=== PATIENT | female | born 1990 | race Caucasian/White ===

== ENCOUNTER 2016-08-04 09:39 | Emergency (ER) | payer OTHER ==
[~2016-08-04 09:39] MED LIST: /DULO30CA OR; BACL10TA2 OR; CYMB60CA3 PO; DEPO PROVERA IM; FLAG500T OR; FLUO20CA8 PO; GABA300C2 PO; GABA600T3 OR; IBUP600T PO; IBUPROFEN PO; LYRI150C OR; MOTR200T44 PO; NALOXONE PO; PENTAZOCINE; PENTAZOCINE PO; PERC5TAB8 PO; PERCOCET PO; PREG100CA OR; SOMA350T PO; TIZA4TAB OR; TRAM50TA2 OR; TRAZ50TA OR; TRAZADONE PO; VICO5TAB PO
[2016-08-04 10:24] LABS: MEAN CORPUSCULAR HEMOGLOBIN 30.7 pg (27.0-33.0); MEAN CORPUSCULAR HGB CONC 33.7 g/dl (32.0-36.5); MEAN CORPUSCULAR VOLUME 91.1 fl (80.0-96.0); RED CELL DISTRIBUTION WIDTH 13.3 % (11.5-14.5); WHITE BLOOD COUNT 8.9 K/mm3 (4.0-10.0)
[2016-08-04] MEDS ORDERED: ONDANSETRON 4 MG ORAL DISINTEGRATING TAB (S0181) As Ordered ONE (10:33)
[2016-08-04 10:44] LABS: AMPHETAMINES LEVEL URINE POSITIVE (NEGATIVE); BENZODIAZEPINES URINE NEGATIVE (NEGATIVE); COCAINE METABOLITE URINE NEGATIVE (NEGATIVE); CONTROL LINE INT CTR LINE PRESENT; METHADONE URINE NEGATIVE (NEGATIVE); OPIATES URINE POSITIVE (NEGATIVE); TRICYCLIC ANTIDEPRESS URINE NEGATIVE (NEGATIVE)
[2016-08-04 10:54] LABS: ALBUMIN 3.6 GM/DL (3.2-5.2); ALBUMIN/GLOBULIN RATIO 1.13 (1.00-1.93); ALKALINE PHOSPHATASE 144 U/L (45-117); ALT/SGPT 31 U/L (12-78); ANION GAP 9 MEQ/L (8-16); AST/SGOT 20 U/L (15-37); BILIRUBIN,DIRECT 0.2 MG/DL (0.0-0.2); BILIRUBIN,TOTAL 0.6 MG/DL (0.2-1.0); BLOOD UREA NITROGEN 13 MG/DL (7-18); CALCIUM LEVEL 9.2 MG/DL (8.5-10.1); CARBON DIOXIDE LEVEL 29 MEQ/L (21-32); CHLORIDE LEVEL 106 MEQ/L (98-107); GLOMERULAR FILTRATION RATE > 60.0 (>60); GLUCOSE, FASTING 85 MG/DL (70-105); POTASSIUM SERUM 4.1 MEQ/L (3.5-5.1); SODIUM LEVEL 144 MEQ/L (136-145); TOTAL PROTEIN 6.8 GM/DL (6.4-8.2)
--- NOTE | 2016-08-04 12:45 | EDDOCDS ---
Nurse's Notes [facility] Name: Ashwini Linda Age: 25 yrs Sex: Female : 1990 Arrival Date: 08/04/2016 Time: 09:39 Bed 30 Private MD: Adrián iRos G Diagnosis: Anxiety disorder, unspecified;Insomnia;Other psychoactive substance abuse-Substance Abuse ;Nausea;Other seizures-Pseudoseizures;Low back pain-Chronic Presentation: 08/04 09:42 Presenting complaint: EMS states: call was originally for anxiety., EMS states on their dsf arrival pt kept blacking out. after they would tap her she would come around. pt denies SI or HI. Fire dept gave oral glucose. Mental Health Triage Level: Not applicable. Suicide/Homicide risk assessment- the patient denies having any suicidal and/or homicidal ideations and does not present with any other emotional, behavioral or mental health complaints. Transition of care: patient was not received from another setting of care. 09:42 Acuity: TANMAY Level 4 dsf 09:42 Method Of Arrival: Walkin/Carried/Asstd dsf 09:42 Status: Patient is not a food service coordinator or dependent. dsf 12:44 Adult Sepsis Screening: The patient does not have new or worsening altered mentation. dsf Patient's respiratory rate is less than 22. Systolic blood pressure is greater than 100. Patient has a qSOFA score of 0- Negative Sepsis Screen. Triage Assessment: 09:52 General: Appears in no apparent distress, Behavior is appropriate for age. Pain: dsf Location: low back Pain currently is 6 out of 10 on a pain scale. HIV screening NA for this visit Offered previously. The patient is triaged at the bedside. See Assessment in Nurses Notes section of ED record. GI: Denies diarrhea, nausea, vomiting, pain. Derm: Skin is pink, warm & dry. 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 clonazepam 1 mg Oral tab 1 tab 3 times per day (Last dose: 08/04/2016 08:00) 2. Lyrica 200 mg Oral 3 times per day (Last dose: 08/04/2016 08:00) 3. multivitamin Oral tab twice a day (Last dose: 08/04/2016 08:00) 4. oxycodone 15 mg Oral tab 1 tab 5 X a day as needed (Last dose: 08/04/2016 08:00) 5. Paxil 20 mg Oral tab 1 tab once daily (Last dose: 08/03/2016 20:00) - PMHx: Anxiety; Chronic Back pain; perforated stomach ulcer; Asthma; - PSHx: Gastric Bypass; stomach surgery; right ankle surgery; Tonsillectomy; Gall Bladder Removal; - Social history: Smoking status: Patient uses tobacco products, current every day smoker. No barriers to communication noted, The patient speaks fluent British, Speaks appropriately for age. - Family history: Not pertinent. - : The pt / caregiver states he / she is not on anticoagulants. Home medication list is obtained from the patient. - Exposure Risk Screening:: None identified. Screenin:43 Screening information is obtained from the patient. Fall risk: No risks identified. dsf Assistance ADL's: requires no assistance with activities of daily living. Abuse/DV Screen: The patient / caregiver reports he/she is: not in a situation that causes fear, pain or injury. Nutritional screening: No deficits noted. Advance Directives: Currently, there is no health care proxy. home support is adequate. Assessment: 09:52 General: Appears in no apparent distress, Behavior is appropriate for age, cooperative. dsf Neurological: Level of Consciousness is awake, alert. Cardiovascular: Capillary refill < 3 seconds Heart tones S1 S2 present. Respiratory: Airway is patent Respiratory effort is even, unlabored, Respiratory pattern is regular, symmetrical, Breath sounds are clear bilaterally. GI: Abdomen is non- distended. Derm: Skin is pink, warm & dry. 10:52 General: Appears to be sleeping. Respiratory: Airway is patent Respiratory effort is dsf even, unlabored, Respiratory pattern is regular, symmetrical. Derm: Skin is pink, warm & dry. 11:52 General: Appears in no apparent distress, Behavior is appropriate for age, cooperative. dsf Neurological: Level of Consciousness is awake, alert, Oriented to person, place, time. Cardiovascular: Capillary refill < 3 seconds. Respiratory: Airway is patent Respiratory effort is even, unlabored, Respiratory pattern is regular, symmetrical. Derm: Skin is pink, warm & dry. 12:41 Adult Sepsis Screening: The patient does not have new or worsening altered mentation. dsf Patient's respiratory rate is less than 22. Systolic blood pressure is greater than 100. Patient has a qSOFA score of 0- Negative Sepsis Screen. General: Appears in no apparent distress, comfortable, Behavior is appropriate for age, cooperative. Neurological: Level of Consciousness is awake, alert. Cardiovascular: No deficits noted. Respiratory: No deficits noted. Derm: Skin is pink, warm & dry. 12:43 General: pt walking in room without difficulty . dsf Social Work Consult: 11:58 Social Work Note: Met with Patient at bedside for a social work consult. Patient stated mb10 she was brought into the ER after she "blacked out". Patient reported back pain and impacted teeth which were bothering her. Patient reported increased anxiety over the past 2 months stating, "I have too much on my mind right now". When asked what she meant, she indicated she was attempting to regain custody of her daughter after her mother was awarded custody when she missed a court appearance. Patient was not willing to elaborate further. Patient reported she has having difficulties sleeping at night but was unable to report how much sleep she was actually getting each night. Patient indicated pain and racing thoughts are what typically keep her awake. She stated her primary care provider was prescribing her psychiatric medications, which are Klonopin and Ambien, as she was not current established with an outpatient mental health provider. Patient denies SI/HI. Patient was able to contract for safety. Patient reported she has a boyfriend who is supportive. Patient was given a list of outpatient providers with her contact information. Patient's boyfriend will be accompanying her home. Status: The patient is not a food service coordinator or dependent. [facility] Behavioral Health: The patient is not an established patient of [facility] Behavior[facility]. Vital Signs: 09:42 BP 139 / 74; Pulse 100; Resp 20; Temp 96.6(O); Pulse Ox 100% on R/A; Weight 70.31 kg dsf (R); Height 6 ft. 1 in. (185.42 cm); Pain 6/10; 12:43 BP 146 / 60; Pulse 102; Resp 20; Temp 97.4; Pulse Ox 99% on R/A; Pain 4/10; dsf 09:42 Body Mass Index 20.45 (70.31 kg, 185.42 cm) f Vitals: 09:42 Log In Time N/A - ambulance arrival. dsf ED Course: 09:40 Patient visited by Faith Loo PCA. ar3 09:40 Patient moved to Waiting ar3 09:40 Patient moved to 30 ar3 09:41 Adrián Rios is Private Physician. ar3 09:46 Triage Initiated dsf 09:48 Maricruz Nelson PA-C is PHCP. ef1 09:48 Hannah Panchal MD is Attending Physician. ef1 09:48 Patient visited by Maricruz Nelson PA-C. ef1 10:21 Patient visited by Maricruz Nelson PA-C. ef1 10:21 Acetaminophen Level Sent. dsf 10:21 Basic Metabolic Profile Sent. dsf 10:21 Complete Blood Count Sent. dsf 10:21 Drug Eval Toxicology ED Only Sent. dsf 10:21 Ethyl Alcohol (ethanol) Sent. dsf 10:21 Liver Profile Sent. dsf 10:21 Salicylate Level Sent. dsf 10:21 Thyroid Stimulating Hormone Sent. dsf 10:48 [facility] [place] was scanned into [employer] and attached to record. jp5 10:57 Patient visited by Mariam Nguyen RN. dsf 11:34 Patient visited by Maricruz Nelson PA-C. ef1 12:27 Patient visited by Maricruz Nelson PA-C. ef1 12:29 Adrián Rios is Referral Physician. ef1 12:39 PSA Outpatient Referrals was scanned into [employer] and attached to record. mb10 12:43 The patient / caregiver is instructed regarding the plan of care and ED course. dsf 12:43 No IV's were initiated during this patient's visit. No procedures done that require dsf assistance. Administered Medications: 10:38 Drug: Ondansetron ODT 4 mg [ondansetron 4 mg disintegrating tablet (1 tabs)] Route: PO; dsf Order Results: Lab Order: Acetaminophen Level; SPEC'M 08/04/16 10:03 Test: ACETAMINOPHEN LEVEL; Value: < 2.0; Range: 10.0-30.0; Abnormal: Below low normal; Units: UG/ML; Status: F Lab Order: Basic Metabolic Profile; SPEC'M 08/04/16 10:03 Test: GLUCOSE, FASTING; Value: 85; Range: 70-105; Units: MG/DL; Status: F Test: BLOOD UREA NITROGEN; Value: 13; Range: 7-18; Units: MG/DL; Status: F Test: CREATININE FOR GFR; Value: 0.50; Range: 0.55-1.02; Abnormal: Below low normal; Units: MG/DL; Status: F Test: GLOMERULAR FILTRATION RATE; Value: > 60.0; Range: >60; Status: F Test: SODIUM LEVEL; Value: 144; Range: 136-145; Units: MEQ/L; Status: F Test: POTASSIUM SERUM; Value: 4.1; Range: 3.5-5.1; Units: MEQ/L; Status: F Test: CHLORIDE LEVEL; Value: 106; Range: 98-107; Units: MEQ/L; Status: F Test: CARBON DIOXIDE LEVEL; Value: 29; Range: 21-32; Units: MEQ/L; Status: F Test: ANION GAP; Value: 9; Range: 8-16; Units: MEQ/L; Status: F Test: CALCIUM LEVEL; Value: 9.2; Range: 8.5-10.1; Units: MG/DL; Status: F Test Note: ; Units are mL/min/1.73 m2 Chronic Kidney Disease Staging per NKF: Stage I & II GFR >=60 Normal to Mildly Decreased Stage III GFR 30-59 Moderately Decreased Stage IV GFR 15-29 Severely Decreased Stage V GFR <15 Very Little GFR Left ESRD GFR <15 on HEALTH SAFETY SPECIALIST Lab Order: Complete Blood Count; SPEC'M 08/04/16 10:03 Test: WHITE BLOOD COUNT; Value: 8.9; Range: 4.0-10.0; Units: K/mm3; Status: F Test: RED BLOOD COUNT; Value: 4.17; Range: 4.00-5.40; Units: M/mm3; Status: F Test: HEMOGLOBIN; Value: 12.8; Range: 12.0-16.0; Units: g/dl; Status: F Test: HEMATOCRIT; Value: 38.0; Range: 36.0-47.0; Units: %; Status: F Test: MEAN CORPUSCULAR VOLUME; Value: 91.1; Range: 80.0-96.0; Units: fl; Status: F Test: MEAN CORPUSCULAR HEMOGLOBIN; Value: 30.7; Range: 27.0-33.0; Units: pg; Status: F Test: MEAN CORPUSCULAR HGB CONC; Value: 33.7; Range: 32.0-36.5; Units: g/dl; Status: F Test: RED CELL DISTRIBUTION WIDTH; Value: 13.3; Range: 11.5-14.5; Units: %; Status: F Test: PLATELET COUNT, AUTOMATED; Value: 240; Range: 150-450; Units: k/mm3; Status: F Lab Order: Drug Eval Toxicology ED Only; SPEC'M 08/04/16 10:18 Test: AMPHETAMINES LEVEL URINE; Value: POSITIVE; Range: NEGATIVE; Abnormal: Above high normal; Status: F Test: BARBITURATES URINE; Value: NEGATIVE; Range: NEGATIVE; Status: F Test: BENZODIAZEPINES URINE; Value: NEGATIVE; Range: NEGATIVE; Status: F Test: CANNABINOIDS URINE; Value: POSITIVE; Range: NEGATIVE; Abnormal: Above high normal; Status: F Test: COCAINE METABOLITE URINE; Value: NEGATIVE; Range: NEGATIVE; Status: F Test: METHADONE URINE; Value: NEGATIVE; Range: NEGATIVE; Status: F Test: OPIATES URINE; Value: POSITIVE; Range: NEGATIVE; Abnormal: Above high normal; Status: F Test: TRICYCLIC ANTIDEPRESS URINE; Value: NEGATIVE; Range: NEGATIVE; Status: F Test Note: ; FALSE POSITIVE RESULTS CAN BE CAUSED BY THE USE OF PANTOPRAZOLE (PROTONIX). Lab Order: Ethyl Alcohol (ethanol); SPEC'M 08/04/16 10:03 Test: ETHYL ALCOHOL (ETHANOL); Value: < 0.003; Range: 0.000-0.010; Units: %; Status: F Lab Order: Liver Profile; SPEC'M 08/04/16 10:03 Test: AST/SGOT; Value: 20; Range: 15-37; Units: U/L; Status: F Test: ALT/SGPT; Value: 31; Range: 12-78; Units: U/L; Status: F Test: ALKALINE PHOSPHATASE; Value: 144; Range: 45-117; Abnormal: Above high normal; Units: U/L; Status: F Test: BILIRUBIN,TOTAL; Value: 0.6; Range: 0.2-1.0; Units: MG/DL; Status: F Test: BILIRUBIN,DIRECT; Value: 0.2; Range: 0.0-0.2; Units: MG/DL; Status: F Test: TOTAL PROTEIN; Value: 6.8; Range: 6.4-8.2; Units: GM/DL; Status: F Test: ALBUMIN; Value: 3.6; Range: 3.2-5.2; Units: GM/DL; Status: F Test: ALBUMIN/GLOBULIN RATIO; Value: 1.13; Range: 1.00-1.93; Status: F Lab Order: Salicylate Level; SPEC'M 08/04/16 10:03 Test: SALICYLATE LEVEL; Value: 2.1; Range: 5.0-30.0; Abnormal: Below low normal; Units: MG/DL; Status: F Lab Order: Thyroid Stimulating Hormone; SPEC'M 08/04/16 10:03 Test: THYROID STIMULATING HORMONE; Value: 1.850; Range: 0.358-3.740; Units: uIU/ML; Status: F Outcome: 12:29 Discharge ordered by Provider. ef1 12:43 Discharge Assessment: Patient awake, alert and oriented x 3. No cognitive and/or dsf functional deficits noted. Patient verbalized understanding of disposition instructions. patient administered narcotics - no. The following High Risk Discharge criteria are identified: None. Discharged to home ambulatory. Condition: stable. Discharge instructions given to patient, Instructed on discharge instructions, follow up and referral plans. medication usage, diet, Demonstrated understanding of instructions, medications, Pt was receptive of discharge instructions/ teaching. Prescriptions given X 1. No special radiology studies were completed. Property sent home with patient. 12:44 Patient left the ED. dsf Signatures: Maricruz Nelson PA-C PAWernerC ef1 Faith Loo, NUCLEAR CRITICALITY SAFETY ENGINEER NUCLEAR CRITICALITY SAFETY ENGINEER ar3 Marima Nguyen,RN RN quyenf Benson Georges jp5 Katie Oakley10 MTDD
--- NOTE | 2016-08-04 12:45 | EDDOCDS ---
Physician Documentation [facility] Name: Ashwini Linda Age: 25 yrs Sex: Female : 1990 Arrival Date: 08/04/2016 Time: 09:39 Bed 30 Private MD: Adrián Riso G Disposition: 08/04/16 12:29 Discharged to Home/Self Care. Impression: Anxiety disorder, unspecified, Insomnia, Other psychoactive substance abuse - Substance Abuse , Nausea, Other seizures - Pseudoseizures, Low back pain - Chronic. - Condition is Stable. - Discharge Instructions: Insomnia, Nausea, Adult, Polysubstance Abuse, Generalized Anxiety Disorder, Back Pain, Adult, [place] - Prescriptions for ZOFRAN ODT 4 mg - dissolve 1 tablet by ORAL route 4 times per day As needed do not chew, do not swallow whole; 10 tablet. - Medication Reconciliation, Local Pharmacy Hours form. - Follow up: Adrián Rios; When: 1 - 2 days; Reason: Recheck today's complaints, Continuance of care. Follow up: Emergency Department; Reason: Worsening of conditions. - Problem is new. - Symptoms have improved. Historical: - Allergies: no known allergies; - Home Meds: 1. clonazepam 1 mg Oral tab 1 tab 3 times per day (Last dose: 08/04/2016 08:00) 2. Lyrica 200 mg Oral 3 times per day (Last dose: 08/04/2016 08:00) 3. multivitamin Oral tab twice a day (Last dose: 08/04/2016 08:00) 4. oxycodone 15 mg Oral tab 1 tab 5 X a day as needed (Last dose: 08/04/2016 08:00) 5. Paxil 20 mg Oral tab 1 tab once daily (Last dose: 08/03/2016 20:00) - PMHx: Anxiety; Chronic Back pain; perforated stomach ulcer; Asthma; - PSHx: Gastric Bypass; stomach surgery; right ankle surgery; Tonsillectomy; Gall Bladder Removal; - Social history: Smoking status: Patient uses tobacco products, current every day smoker. No barriers to communication noted, The patient speaks fluent Indonesian, Speaks appropriately for age. - Family history: Not pertinent. - : The pt / caregiver states he / she is not on anticoagulants. Home medication list is obtained from the patient. - Exposure Risk Screening:: None identified. USER SUPPORT SPECIALIST: 08/04 09:42 LMP 08/02/2016 dsf Vital Signs: 09:42 BP 139 / 74; Pulse 100; Resp 20; Temp 96.6(O); Pulse Ox 100% on R/A; Weight 70.31 kg / dsf 155.01 lbs (R); Height 6 ft. 1 in. (185.42 cm); Pain 6/10; 12:43 BP 146 / 60; Pulse 102; Resp 20; Temp 97.4; Pulse Ox 99% on R/A; Pain 4/10; dsf 09:42 Body Mass Index 20.45 (70.31 kg, 185.42 cm) dsf MDM: 09:49 Consult PFS/PSA/Injection Mold Technician ordered. ef1 09:49 Consult PFS/PSA/Injection Mold Technician: Patient's case requires discussion with on-call ef1 Psychiatrist ordered. 09:49 PSA/PFS to call Nursing Strand Galvanizer, to enter patient data on [place] Safe Act if patient ef1 involuntarily admitted or transferred for SI or HI ordered. 09:49 Confirm accurate psychiatric medication list and times of last dosage ordered. ef1 09:49 Detain Pt Until Medically/PFS Cleared ordered. ef1 09:50 Acetaminophen Level Ordered. EDMS 09:50 Basic Metabolic Profile Ordered. EDMS 09:50 Complete Blood Count Ordered. EDMS 09:50 Drug Eval Toxicology ED Only Ordered. EDMS 09:50 Ethyl Alcohol (ethanol) Ordered. EDMS 09:50 Liver Profile Ordered. EDMS 09:50 Salicylate Level Ordered. EDMS 09:50 Thyroid Stimulating Hormone Ordered. EDMS 10:21 Ondansetron ODT Oral Disintegrating Tablet 4 mg PO once ordered. ef1 10:21 Consult PFS/PSA/Injection Mold Technician complete. dsf 10:21 Consult PFS/PSA/Injection Mold Technician: Patient's case requires discussion with on-call dsf Psychiatrist complete. 10:21 PSA/PFS to call Nursing Strand Galvanizer, to enter patient data [place] Safe Act if patient dsf involuntarily admitted or transferred for SI or HI complete. 10:48 [facility] Payment Agreement was scanned into [employer] and attached to record. jp5 10:48 Financial registration complete. jp5 11:06 Acetaminophen Level Reviewed. ef1 11:06 Basic Metabolic Profile Reviewed. ef1 11:06 Drug Eval Toxicology ED Only Reviewed. ef1 11:06 Liver Profile Reviewed. ef1 11:06 Salicylate Level Reviewed. ef1 11:06 Complete Blood Count Reviewed. ef1 11:06 Ethyl Alcohol (ethanol) Reviewed. ef1 11:06 Thyroid Stimulating Hormone Reviewed. ef1 12:39 PSA Outpatient Referrals was scanned into [employer] and attached to record. mb10 Administered Medications: 10:38 Drug: Ondansetron ODT 4 mg [ondansetron 4 mg disintegrating tablet (1 tabs)] Route: PO; dsf Signatures: Dispatcher [employer] EDMS Maricruz Nelson, JACQUELINE PHILLIPS ef1 Mariam NguyenRN RN dsf Benson Georges jp5 Katie Oakley mb10 The chart was reviewed and I authenticate all verbal orders and agree with the evaluation and treatment provided.Attachments: 10:48 [facility] Payment Agreement jp5 MTDD
--- NOTE | 2016-08-06 13:45 | EDDOCDS ---
Physician Documentation [facility] Name: Ashwini Linda Age: 25 yrs Sex: Female : 1990 Arrival Date: 08/04/2016 Time: 09:39 Bed 30 Private MD: Adrián Rios G Disposition: 08/04/16 12:29 Discharged to Home/Self Care. Impression: Anxiety disorder, unspecified, Insomnia, Other psychoactive substance abuse - Substance Abuse , Nausea, Other seizures - Pseudoseizures, Low back pain - Chronic. - Condition is Stable. - Discharge Instructions: Insomnia, Nausea, Adult, Polysubstance Abuse, Generalized Anxiety Disorder, Back Pain, Adult, [id number]. - Prescriptions for ZOFRAN ODT 4 mg - dissolve 1 tablet by ORAL route 4 times per day As needed do not chew, do not swallow whole; 10 tablet. - Medication Reconciliation, Local Pharmacy Hours form. - Follow up: Adriná Rios; When: 1 - 2 days; Reason: Recheck today's complaints, Continuance of care. Follow up: Emergency Department; Reason: Worsening of conditions. - Problem is new. - Symptoms have improved. Historical: - Allergies: no known allergies; - Home Meds: 1. clonazepam 1 mg Oral tab 1 tab 3 times per day (Last dose: 08/04/2016 08:00) 2. Lyrica 200 mg Oral 3 times per day (Last dose: 08/04/2016 08:00) 3. multivitamin Oral tab twice a day (Last dose: 08/04/2016 08:00) 4. oxycodone 15 mg Oral tab 1 tab 5 X a day as needed (Last dose: 08/04/2016 08:00) 5. Paxil 20 mg Oral tab 1 tab once daily (Last dose: 08/03/2016 20:00) - PMHx: Anxiety; Chronic Back pain; perforated stomach ulcer; Asthma; - PSHx: Gastric Bypass; stomach surgery; right ankle surgery; Tonsillectomy; Gall Bladder Removal; - Social history: Smoking status: Patient uses tobacco products, current every day smoker. No barriers to communication noted, The patient speaks fluent Frisian, Speaks appropriately for age. - Family history: Not pertinent. - : The pt / caregiver states he / she is not on anticoagulants. Home medication list is obtained from the patient. - Exposure Risk Screening:: None identified. REAL ESTATE TRANSACTION COORDINATOR: 08/04 09:42 LMP 08/02/2016 dsf Vital Signs: 09:42 BP 139 / 74; Pulse 100; Resp 20; Temp 96.6(O); Pulse Ox 100% on R/A; Weight 70.31 kg / dsf 155.01 lbs (R); Height 6 ft. 1 in. (185.42 cm); Pain 6/10; 12:43 BP 146 / 60; Pulse 102; Resp 20; Temp 97.4; Pulse Ox 99% on R/A; Pain 4/10; dsf 09:42 Body Mass Index 20.45 (70.31 kg, 185.42 cm) dsf MDM: 09:49 Consult PFS/PSA/Vinyl Hanger ordered. ef1 09:49 Consult PFS/PSA/Vinyl Hanger: Patient's case requires discussion with on-call ef1 Psychiatrist ordered. 09:49 PSA/PFS to call Nursing Computer Applications Instructor, to enter [place] data [place] if patient ef1 involuntarily admitted or transferred for SI or HI ordered. 09:49 Confirm accurate psychiatric medication list and times of last dosage ordered. ef1 09:49 Detain Pt Until Medically/PFS Cleared ordered. ef1 09:50 Acetaminophen Level Ordered. EDMS 09:50 Basic Metabolic Profile Ordered. EDMS 09:50 Complete Blood Count Ordered. EDMS 09:50 Drug Eval Toxicology ED Only Ordered. EDMS 09:50 Ethyl Alcohol (ethanol) Ordered. EDMS 09:50 Liver Profile Ordered. EDMS 09:50 Salicylate Level Ordered. EDMS 09:50 Thyroid Stimulating Hormone Ordered. EDMS 10:21 Ondansetron ODT Oral Disintegrating Tablet 4 mg PO once ordered. ef1 10:21 Consult PFS/PSA/Vinyl Hanger complete. dsf 10:21 Consult PFS/PSA/Vinyl Hanger: Patient's case requires discussion with on-call dsf Psychiatrist complete. 10:21 PSA/PFS to call Nursing Computer Applications Instructor, to enter patient data [place] if patient dsf involuntarily admitted or transferred for SI or HI complete. 10:48 [facility] [place] Payment Agreement was scanned into [employer] and attached to record. jp5 10:48 Financial registration complete. jp5 11:06 Acetaminophen Level Reviewed. ef1 11:06 Basic Metabolic Profile Reviewed. ef1 11:06 Drug Eval Toxicology ED Only Reviewed. ef1 11:06 Liver Profile Reviewed. ef1 11:06 Salicylate Level Reviewed. ef1 11:06 Complete Blood Count Reviewed. ef1 11:06 Ethyl Alcohol (ethanol) Reviewed. ef1 11:06 Thyroid Stimulating Hormone Reviewed. ef1 12:39 PSA Outpatient Referrals was scanned into [employer] and attached to record. mb10 12:57 REGULAR DIET PLASTIC MACEDO+DIET ordered. EDCT 16:55 T-Sheet-- Draft Copy was scanned into [employer] and attached to record. klr Administered Medications: 10:38 Drug: Ondansetron ODT 4 mg [ondansetron 4 mg disintegrating tablet (1 tabs)] Route: PO; dsf Signatures: Dispatcher [employer] EDMS Maricruz Nelson, JACQUELINE PHILLIPS ef1 Mariam NguyenRN RN dsf Benson Georges jp5 Katie Oakley mb10 Andreia Humphreys klr The chart was reviewed and I authenticate all verbal orders and agree with the evaluation and treatment provided.Attachments: 10:48 [facility] Payment Agreement jp5 16:55 T-Sheet-- Draft Copy klr Chart Complete MTDD
--- NOTE | 2016-08-06 13:45 | EDDOCDS ---
Nurse's Notes [facility] Name: Ashwini Linda Age: 25 yrs Sex: Female : 1990 Arrival Date: 08/04/2016 Time: 09:39 Bed 30 Private MD: Adrián Rios G Diagnosis: Anxiety disorder, unspecified;Insomnia;Other psychoactive substance abuse-Substance Abuse ;Nausea;Other seizures-Pseudoseizures;Low back pain-Chronic Presentation: 08/04 09:42 Presenting complaint: EMS states: call was originally for anxiety., EMS states on their dsf arrival pt kept blacking out. after they would tap her she would come around. pt denies SI or HI. Fire dept gave oral glucose. Mental Health Triage Level: Not applicable. Suicide/Homicide risk assessment- the patient denies having any suicidal and/or homicidal ideations and does not present with any other emotional, behavioral or mental health complaints. Transition of care: patient was not received from another setting of care. 09:42 Acuity: TANMAY Level 4 dsf 09:42 Method Of Arrival: Walkin/Carried/Asstd dsf 09:42 Status: Patient is not a tax services intern or dependent. dsf 12:44 Adult Sepsis Screening: The patient does not have new or worsening altered mentation. dsf Patient's respiratory rate is less than 22. Systolic blood pressure is greater than 100. Patient has a qSOFA score of 0- Negative Sepsis Screen. Triage Assessment: 09:52 General: Appears in no apparent distress, Behavior is appropriate for age. Pain: dsf Location: low back Pain currently is 6 out of 10 on a pain scale. HIV screening NA for this visit Offered previously. The patient is triaged at the bedside. See Assessment in Nurses Notes section of ED record. GI: Denies diarrhea, nausea, vomiting, pain. Derm: Skin is pink, warm & dry. PULMONOLOGIST/INTENSIVIST: 09:42 LMP 08/02/2016 dsf Historical: - Allergies: no known allergies; - Home Meds: 1. clonazepam 1 mg Oral tab 1 tab 3 times per day (Last dose: 08/04/2016 08:00) 2. Lyrica 200 mg Oral 3 times per day (Last dose: 08/04/2016 08:00) 3. multivitamin Oral tab twice a day (Last dose: 08/04/2016 08:00) 4. oxycodone 15 mg Oral tab 1 tab 5 X a day as needed (Last dose: 08/04/2016 08:00) 5. Paxil 20 mg Oral tab 1 tab once daily (Last dose: 08/03/2016 20:00) - PMHx: Anxiety; Chronic Back pain; perforated stomach ulcer; Asthma; - PSHx: Gastric Bypass; stomach surgery; right ankle surgery; Tonsillectomy; Gall Bladder Removal; - Social history: Smoking status: Patient uses tobacco products, current every day smoker. No barriers to communication noted, The patient speaks fluent Monegasque, Speaks appropriately for age. - Family history: Not pertinent. - : The pt / caregiver states he / she is not on anticoagulants. Home medication list is obtained from the patient. - Exposure Risk Screening:: None identified. Screenin:43 Screening information is obtained from the patient. Fall risk: No risks identified. dsf Assistance ADL's: requires no assistance with activities of daily living. Abuse/DV Screen: The patient / caregiver reports he/she is: not in a situation that causes fear, pain or injury. Nutritional screening: No deficits noted. Advance Directives: Currently, there is no health care proxy. home support is adequate. Assessment: 09:52 General: Appears in no apparent distress, Behavior is appropriate for age, cooperative. dsf Neurological: Level of Consciousness is awake, alert. Cardiovascular: Capillary refill < 3 seconds Heart tones S1 S2 present. Respiratory: Airway is patent Respiratory effort is even, unlabored, Respiratory pattern is regular, symmetrical, Breath sounds are clear bilaterally. GI: Abdomen is non- distended. Derm: Skin is pink, warm & dry. 10:52 General: Appears to be sleeping. Respiratory: Airway is patent Respiratory effort is dsf even, unlabored, Respiratory pattern is regular, symmetrical. Derm: Skin is pink, warm & dry. 11:52 General: Appears in no apparent distress, Behavior is appropriate for age, cooperative. dsf Neurological: Level of Consciousness is awake, alert, Oriented to person, place, time. Cardiovascular: Capillary refill < 3 seconds. Respiratory: Airway is patent Respiratory effort is even, unlabored, Respiratory pattern is regular, symmetrical. Derm: Skin is pink, warm & dry. 12:41 Adult Sepsis Screening: The patient does not have new or worsening altered mentation. dsf Patient's respiratory rate is less than 22. Systolic blood pressure is greater than 100. Patient has a qSOFA score of 0- Negative Sepsis Screen. General: Appears in no apparent distress, comfortable, Behavior is appropriate for age, cooperative. Neurological: Level of Consciousness is awake, alert. Cardiovascular: No deficits noted. Respiratory: No deficits noted. Derm: Skin is pink, warm & dry. 12:43 General: pt walking in room without difficulty . dsf Social Work Consult: 11:58 Social Work Note: Met with Patient at bedside for a social work consult. Patient stated mb10 she was brought into the ER after she "blacked out". Patient reported back pain and impacted teeth which were bothering her. Patient reported increased anxiety over the past 2 months stating, "I have too much on my mind right now". When asked what she meant, she indicated she was attempting to regain custody of her daughter after her mother was awarded custody when she missed a court appearance. Patient was not willing to elaborate further. Patient reported she has having difficulties sleeping at night but was unable to report how much sleep she was actually getting each night. Patient indicated pain and racing thoughts are what typically keep her awake. She stated her primary care provider was prescribing her psychiatric medications, which are Klonopin and Ambien, as she was not current established with an outpatient mental health provider. Patient denies SI/HI. Patient was able to contract for safety. Patient reported she has a boyfriend who is supportive. Patient was given a list of outpatient providers with her contact information. Patient's boyfriend will be accompanying her home. Status: The patient is not a tax services intern or dependent. [facility] Behavioral Health: The patient is not an established patient of [facility] Behavioral [facility]. Vital Signs: 09:42 BP 139 / 74; Pulse 100; Resp 20; Temp 96.6(O); Pulse Ox 100% on R/A; Weight 70.31 kg dsf (R); Height 6 ft. 1 in. (185.42 cm); Pain 6/10; 12:43 BP 146 / 60; Pulse 102; Resp 20; Temp 97.4; Pulse Ox 99% on R/A; Pain 4/10; dsf 09:42 Body Mass Index 20.45 (70.31 kg, 185.42 cm) f Vitals: 09:42 Log In Time N/A - ambulance arrival. dsf ED Course: 09:40 Patient visited by Faith Loo PCA. ar3 09:40 Patient moved to Waiting ar3 09:40 Patient moved to 30 ar3 09:41 Adrián Rios is Private Physician. ar3 09:46 Triage Initiated dsf 09:48 Maricruz Nelson PA-C is PHCP. ef1 09:48 Hannah Panchal MD is Attending Physician. ef1 09:48 Patient visited by Maricruz Nelson PA-C. ef1 10:21 Patient visited by Maricruz Nelson PA-C. ef1 10:21 Acetaminophen Level Sent. dsf 10:21 Basic Metabolic Profile Sent. dsf 10:21 Complete Blood Count Sent. dsf 10:21 Drug Eval Toxicology ED Only Sent. dsf 10:21 Ethyl Alcohol (ethanol) Sent. dsf 10:21 Liver Profile Sent. dsf 10:21 Salicylate Level Sent. dsf 10:21 Thyroid Stimulating Hormone Sent. dsf 10:48 [facility] [place] Payment Agreement was scanned into [employer] and attached to record. jp5 10:57 Patient visited by Mariam Nguyen RN. dsf 11:34 Patient visited by Maricruz Nelson PA-C. ef1 12:27 Patient visited by Maricruz Nelson PA-C. ef1 12:29 Adrián Rios is Referral Physician. ef1 12:39 PSA Outpatient Referrals was scanned into [employer] and attached to record. mb10 12:43 The patient / caregiver is instructed regarding the plan of care and ED course. dsf 12:43 No IV's were initiated during this patient's visit. No procedures done that require dsf assistance. 16:55 T-Sheet-- Draft Copy was scanned into [employer] and attached to record. klr Administered Medications: 10:38 Drug: Ondansetron ODT 4 mg [ondansetron 4 mg disintegrating tablet (1 tabs)] Route: PO; dsf Order Results: Lab Order: Acetaminophen Level; SPEC'M 08/04/16 10:03 Test: ACETAMINOPHEN LEVEL; Value: < 2.0; Range: 10.0-30.0; Abnormal: Below low normal; Units: UG/ML; Status: F Lab Order: Basic Metabolic Profile; SPEC'M 08/04/16 10:03 Test: GLUCOSE, FASTING; Value: 85; Range: 70-105; Units: MG/DL; Status: F Test: BLOOD UREA NITROGEN; Value: 13; Range: 7-18; Units: MG/DL; Status: F Test: CREATININE FOR GFR; Value: 0.50; Range: 0.55-1.02; Abnormal: Below low normal; Units: MG/DL; Status: F Test: GLOMERULAR FILTRATION RATE; Value: > 60.0; Range: >60; Status: F Test: SODIUM LEVEL; Value: 144; Range: 136-145; Units: MEQ/L; Status: F Test: POTASSIUM SERUM; Value: 4.1; Range: 3.5-5.1; Units: MEQ/L; Status: F Test: CHLORIDE LEVEL; Value: 106; Range: 98-107; Units: MEQ/L; Status: F Test: CARBON DIOXIDE LEVEL; Value: 29; Range: 21-32; Units: MEQ/L; Status: F Test: ANION GAP; Value: 9; Range: 8-16; Units: MEQ/L; Status: F Test: CALCIUM LEVEL; Value: 9.2; Range: 8.5-10.1; Units: MG/DL; Status: F Test Note: ; Units are mL/min/1.73 m2 Chronic Kidney Disease Staging per NKF: Stage I & II GFR >=60 Normal to Mildly Decreased Stage III GFR 30-59 Moderately Decreased Stage IV GFR 15-29 Severely Decreased Stage V GFR <15 Very Little GFR Left ESRD GFR <15 on AIRCRAFT MAINTENANCE TECHNICIAN Lab Order: Complete Blood Count; SPEC'M 08/04/16 10:03 Test: WHITE BLOOD COUNT; Value: 8.9; Range: 4.0-10.0; Units: K/mm3; Status: F Test: RED BLOOD COUNT; Value: 4.17; Range: 4.00-5.40; Units: M/mm3; Status: F Test: HEMOGLOBIN; Value: 12.8; Range: 12.0-16.0; Units: g/dl; Status: F Test: HEMATOCRIT; Value: 38.0; Range: 36.0-47.0; Units: %; Status: F Test: MEAN CORPUSCULAR VOLUME; Value: 91.1; Range: 80.0-96.0; Units: fl; Status: F Test: MEAN CORPUSCULAR HEMOGLOBIN; Value: 30.7; Range: 27.0-33.0; Units: pg; Status: F Test: MEAN CORPUSCULAR HGB CONC; Value: 33.7; Range: 32.0-36.5; Units: g/dl; Status: F Test: RED CELL DISTRIBUTION WIDTH; Value: 13.3; Range: 11.5-14.5; Units: %; Status: F Test: PLATELET COUNT, AUTOMATED; Value: 240; Range: 150-450; Units: k/mm3; Status: F Lab Order: Drug Eval Toxicology ED Only; SPEC'08/04/16 10:18 Test: AMPHETAMINES LEVEL URINE; Value: POSITIVE; Range: NEGATIVE; Abnormal: Above high normal; Status: F Test: BARBITURATES URINE; Value: NEGATIVE; Range: NEGATIVE; Status: F Test: BENZODIAZEPINES URINE; Value: NEGATIVE; Range: NEGATIVE; Status: F Test: CANNABINOIDS URINE; Value: POSITIVE; Range: NEGATIVE; Abnormal: Above high normal; Status: F Test: COCAINE METABOLITE URINE; Value: NEGATIVE; Range: NEGATIVE; Status: F Test: METHADONE URINE; Value: NEGATIVE; Range: NEGATIVE; Status: F Test: OPIATES URINE; Value: POSITIVE; Range: NEGATIVE; Abnormal: Above high normal; Status: F Test: TRICYCLIC ANTIDEPRESS URINE; Value: NEGATIVE; Range: NEGATIVE; Status: F Test Note: ; FALSE POSITIVE RESULTS CAN BE CAUSED BY THE USE OF PANTOPRAZOLE (PROTONIX). Lab Order: Ethyl Alcohol (ethanol); SPEC'08/04/16 10:03 Test: ETHYL ALCOHOL (ETHANOL); Value: < 0.003; Range: 0.000-0.010; Units: %; Status: F Lab Order: Liver Profile; SPEC'08/04/16 10:03 Test: AST/SGOT; Value: 20; Range: 15-37; Units: U/L; Status: F Test: ALT/SGPT; Value: 31; Range: 12-78; Units: U/L; Status: F Test: ALKALINE PHOSPHATASE; Value: 144; Range: 45-117; Abnormal: Above high normal; Units: U/L; Status: F Test: BILIRUBIN,TOTAL; Value: 0.6; Range: 0.2-1.0; Units: MG/DL; Status: F Test: BILIRUBIN,DIRECT; Value: 0.2; Range: 0.0-0.2; Units: MG/DL; Status: F Test: TOTAL PROTEIN; Value: 6.8; Range: 6.4-8.2; Units: GM/DL; Status: F Test: ALBUMIN; Value: 3.6; Range: 3.2-5.2; Units: GM/DL; Status: F Test: ALBUMIN/GLOBULIN RATIO; Value: 1.13; Range: 1.00-1.93; Status: F Lab Order: Salicylate Level; SPEC'M 08/04/16 10:03 Test: SALICYLATE LEVEL; Value: 2.1; Range: 5.0-30.0; Abnormal: Below low normal; Units: MG/DL; Status: F Lab Order: Thyroid Stimulating Hormone; SPEC'M 08/04/16 10:03 Test: THYROID STIMULATING HORMONE; Value: 1.850; Range: 0.358-3.740; Units: uIU/ML; Status: F Outcome: 12:29 Discharge ordered by Provider. ef1 12:43 Discharge Assessment: Patient awake, alert and oriented x 3. No cognitive and/or dsf functional deficits noted. Patient verbalized understanding of disposition instructions. patient administered narcotics - no. The following High Risk Discharge criteria are identified: None. Discharged to home ambulatory. Condition: stable. Discharge instructions given to patient, Instructed on discharge instructions, follow up and referral plans. medication usage, diet, Demonstrated understanding of instructions, medications, Pt was receptive of discharge instructions/ teaching. Prescriptions given X 1. No special radiology studies were completed. Property sent home with patient. 12:44 Patient left the ED. dsf Signatures: Maricruz Nelson PA-C PAGiana ef1 Faith Loo, FLIGHT DECK OFFICER FLIGHT DECK OFFICER ar3 Mariam Nguyen,DAVID RN quyenf Benson Georges jp5 Katie Oakley mb10 Andreia Humphreys Chart Complete MTDD
--- NOTE | 2016-08-06 13:45 | EDDOCDS ---
Physician Documentation [facility] Name: Ashwini Linda Age: 25 yrs Sex: Female : 1990 Arrival Date: 08/04/2016 Time: 09:39 Bed 30 Private MD: Adrián Rios G Disposition: 08/04/16 12:29 Discharged to Home/Self Care. Impression: Anxiety disorder, unspecified, Insomnia, Other psychoactive substance abuse - Substance Abuse , Nausea, Other seizures - Pseudoseizures, Low back pain - Chronic. - Condition is Stable. - Discharge Instructions: Insomnia, Nausea, Adult, Polysubstance Abuse, Generalized Anxiety Disorder, Back Pain, Adult, [id number]. - Prescriptions for ZOFRAN ODT 4 mg - dissolve 1 tablet by ORAL route 4 times per day As needed do not chew, do not swallow whole; 10 tablet. - Medication Reconciliation, Local Pharmacy Hours form. - Follow up: Adrián Rios; When: 1 - 2 days; Reason: Recheck today's complaints, Continuance of care. Follow up: Emergency Department; Reason: Worsening of conditions. - Problem is new. - Symptoms have improved. Historical: - Allergies: no known allergies; - Home Meds: 1. clonazepam 1 mg Oral tab 1 tab 3 times per day (Last dose: 08/04/2016 08:00) 2. Lyrica 200 mg Oral 3 times per day (Last dose: 08/04/2016 08:00) 3. multivitamin Oral tab twice a day (Last dose: 08/04/2016 08:00) 4. oxycodone 15 mg Oral tab 1 tab 5 X a day as needed (Last dose: 08/04/2016 08:00) 5. Paxil 20 mg Oral tab 1 tab once daily (Last dose: 08/03/2016 20:00) - PMHx: Anxiety; Chronic Back pain; perforated stomach ulcer; Asthma; - PSHx: Gastric Bypass; stomach surgery; right ankle surgery; Tonsillectomy; Gall Bladder Removal; - Social history: Smoking status: Patient uses tobacco products, current every day smoker. No barriers to communication noted, The patient speaks fluent German, Speaks appropriately for age. - Family history: Not pertinent. - : The pt / caregiver states he / she is not on anticoagulants. Home medication list is obtained from the patient. - Exposure Risk Screening:: None identified. [employer]: 08/04 09:42 LMP 08/02/2016 dsf Vital Signs: 09:42 BP 139 / 74; Pulse 100; Resp 20; Temp 96.6(O); Pulse Ox 100% on R/A; Weight 70.31 kg / dsf 155.01 lbs (R); Height 6 ft. 1 in. (185.42 cm); Pain 6/10; 12:43 BP 146 / 60; Pulse 102; Resp 20; Temp 97.4; Pulse Ox 99% on R/A; Pain 4/10; dsf 09:42 Body Mass Index 20.45 (70.31 kg, 185.42 cm) dsf MDM: 09:49 Consult PFS/PSA/Auto Tech ordered. ef1 09:49 Consult PFS/PSA/Auto Tech: Patient's case requires discussion with on-call ef1 Psychiatrist ordered. 09:49 PSA/PFS to call Nursing Agency Director, to enter [place] data [place] if patient ef1 involuntarily admitted or transferred for SI or HI ordered. 09:49 Confirm accurate psychiatric medication list and times of last dosage ordered. ef1 09:49 Detain Pt Until Medically/PFS Cleared ordered. ef1 09:50 Acetaminophen Level Ordered. EDMS 09:50 Basic Metabolic Profile Ordered. EDMS 09:50 Complete Blood Count Ordered. EDMS 09:50 Drug Eval Toxicology ED Only Ordered. EDMS 09:50 Ethyl Alcohol (ethanol) Ordered. EDMS 09:50 Liver Profile Ordered. EDMS 09:50 Salicylate Level Ordered. EDMS 09:50 Thyroid Stimulating Hormone Ordered. EDMS 10:21 Ondansetron ODT Oral Disintegrating Tablet 4 mg PO once ordered. ef1 10:21 Consult PFS/PSA/Auto Tech complete. dsf 10:21 Consult PFS/PSA/Auto Tech: Patient's case requires discussion with on-call dsf Psychiatrist complete. 10:21 PSA/PFS to call Nursing Agency Director, to enter [place] data [place] if patient dsf involuntarily admitted or transferred for SI or HI complete. 10:48 [facility] [place] Agreement was scanned into [employer] and attached to record. jp5 10:48 Financial registration complete. jp5 11:06 Acetaminophen Level Reviewed. ef1 11:06 Basic Metabolic Profile Reviewed. ef1 11:06 Drug Eval Toxicology ED Only Reviewed. ef1 11:06 Liver Profile Reviewed. ef1 11:06 Salicylate Level Reviewed. ef1 11:06 Complete Blood Count Reviewed. ef1 11:06 Ethyl Alcohol (ethanol) Reviewed. ef1 11:06 Thyroid Stimulating Hormone Reviewed. ef1 12:39 PSA Outpatient Referrals was scanned into [employer] and attached to record. mb10 12:57 REGULAR DIET PLASTIC MACEDO+DIET ordered. EDWI 16:55 T-Sheet-- Draft Copy was scanned into [employer] and attached to record. klr Administered Medications: 10:38 Drug: Ondansetron ODT 4 mg [ondansetron 4 mg disintegrating tablet (1 tabs)] Route: PO; dsf Signatures: Dispatcher [employer] EDMS Maricruz Nelson, JACQUELINE PHILLIPS ef1 Mariam NguyenRN RN dsf Benson Georges jp5 Katie Oakley mb10 Andreia Humphreys klr The chart was reviewed and I authenticate all verbal orders and agree with the evaluation and treatment provided.Attachments: 10:48 [facility] Payment Agreement jp5 16:55 T-Sheet-- Draft Copy klr Chart Complete MTDD
== END 2016-08-04 12:44 | disposition home or self-care (01) ==
LOC: M ED 09:39
DX: F41.1 Generalized anxiety disorder (principal); G47.00 Insomnia, unspecified; F19.10 Other psychoactive substance abuse, uncomplicated; F44.5 Conversion disorder with seizures or convulsions; M54.5 Low back pain; J45.909 Unspecified asthma, uncomplicated; Z98.84 Bariatric surgery status; Z79.899 Other long term (current) drug therapy; F17.200 Nicotine dependence, unspecified, uncomplicated
CPT/HCPCS: 36415; 80048; 80076; 80306; 84443; 85027; 99283; G0480

== ENCOUNTER 2016-08-05 19:30 | Emergency (ER) | payer OTHER ==
[2016-08-05 20:34] LABS: CONTROL LINE HCG INT CTR LINE PRESENT
[2016-08-05 20:40] LABS: ANION GAP 6 MEQ/L (8-16); BASO % 0.5 % (0.0-1.0); BLOOD UREA NITROGEN 12 MG/DL (7-18); CALCIUM LEVEL 9.4 MG/DL (8.5-10.1); CARBON DIOXIDE LEVEL 30 MEQ/L (21-32); CHLORIDE LEVEL 108 MEQ/L (98-107); CREATININE FOR GFR 0.53 MG/DL (0.55-1.02); EOS # 0.2 K/mm3 (0.0-0.50); EOS % 2.3 % (0.0-3.0); GLOMERULAR FILTRATION RATE > 60.0 (>60); GLUCOSE, FASTING 78 MG/DL (70-105); LARGE UNSTAINED CELL # 0.1 K/mm3 (0.0-0.4); LARGE UNSTAINED CELL % 1.7 % (0.0-4.0); LYMPH # 2.3 K/mm3 (1.5-6.5); LYMPH % 33.2 % (24.0-44.0); MEAN CORPUSCULAR HEMOGLOBIN 30.7 pg (27.0-33.0); MEAN CORPUSCULAR HGB CONC 33.2 g/dl (32.0-36.5); MEAN CORPUSCULAR VOLUME 92.7 fl (80.0-96.0); MONO # 0.4 K/mm3 (0.0-0.8); MONO % 5.4 % (0.0-5.0); NEUTROPHILS # 3.9 K/mm3 (1.8-7.7); PLATELET COUNT, AUTOMATED 226 k/mm3 (150-450); POTASSIUM SERUM 3.5 MEQ/L (3.5-5.1); RED CELL DISTRIBUTION WIDTH 13.2 % (11.5-14.5); SODIUM LEVEL 144 MEQ/L (136-145); WHITE BLOOD COUNT 6.8 K/mm3 (4.0-10.0)
[2016-08-05] MEDS ORDERED: NORCO, ANEXSIA 5/325MG TABLET (HYDROcodone/ACETAMINOPHEN) As Ordered ONE (20:57)
[2016-08-05] MEDS ORDERED: clonazePAM 0.5 MG TAB As Ordered ONE (20:57)
--- NOTE | 2016-08-05 22:20 | REPUSA ---
CT of the head Clinical history: syncope. Comparison: 04/10/2012. Technique: Multiple axial CT images were obtained through the head without administration of contrast . Findings: The ventricles and sulci are symmetric bilaterally. There is no evidence of acute hemorrhag e or infarct. There is no midline shift, mass effect, or extra-axial fluid collection. The osseous st ructures are unremarkable. The visualized paranasal sinuses and mastoid air cells are clear. Impression: Negative study.
--- NOTE | 2016-08-05 23:58 | EDDOCDS ---
Nurse's Notes [facility] Name: Ashwini Linda Age: 25 yrs Sex: Female : 1990 Arrival Date: 08/05/2016 Time: 19:30 Bed 4 Private MD: Diagnosis: Orthostatic hypotension Presentation: 08/05 19:38 Presenting complaint: Patient states: been passing out more frequently this week. H/o rs3 similar episodes since November s/p gastric bypass. was seen here yesterday. was sent home. it happened today again when emptying garbage found herself on the floor waking up. Adult Sepsis Screening: The patient does not have new or worsening altered mentation. Patient's respiratory rate is less than 22. Systolic blood pressure is greater than 100. Patient has a qSOFA score of 0- Negative Sepsis Screen. Suicide/Homicide risk assessment- the patient denies having any suicidal and/or homicidal ideations and does not present with any other emotional, behavioral or mental health complaints. Status: Patient is not a online services manager or dependent. Transition of care: patient was not received from another setting of care. 19:38 Acuity: TANMAY Level 3 rs3 19:38 Method Of Arrival: Wheelchair rs3 19:51 Red Flag criteria, patient assessed and taken directly to a bed. mb9 Triage Assessment: 19:43 General: Appears in no apparent distress. Pain: Location: abdomen. HIV screening NA for rs3 this visit Offered previously. Neurological: Level of Consciousness is awake, alert. 19:50 General: Appears unkempt. General: Smells of alcohol. Neurological: Level of mb9 Consciousness is awake, alert, Oriented to person, place, time, pt appears to become unresponsive for 10 to 20 seconds and then she arouses on her own and appears alert and oriented. pt denies having any recollection of the event. . Respiratory: Airway is patent Respiratory effort is even, unlabored. 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 clonazepam 1 mg Oral tab 1 tab 3 times per day 2. Lyrica 200 mg Oral 3 times per day 3. multivitamin Oral tab twice a day 4. omeprazole 40 mg Oral cpDR 1 cap 2 times per day 5. oxycodone 15 mg Oral tab 1 tab 5 X a day as needed 6. oxycodone-acetaminophen 5-325 mg Oral tab 1 tab as needed as needed 7. Paxil 20 mg Oral tab 1 tab once daily 8. Vitamin B-12 500 mcg Oral tab twice a day hasnt taken in a week 9. clonazepam 1 mg Oral tab 1 tab 3 times per day 10. Lyrica 200 mg Oral 3 times per day 11. multivitamin Oral tab twice a day 12. omeprazole 40 mg Oral cpDR 1 cap 2 times per day 13. oxycodone 15 mg Oral tab 1 tab 5 X a day as needed 14. oxycodone-acetaminophen 5-325 mg Oral tab 1 tab as needed as needed 15. Paxil 20 mg Oral tab 1 tab once daily 16. Vitamin B-12 500 mcg Oral tab twice a day hasnt taken in a week 17. 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 No barriers to communication noted, The patient speaks fluent [place] Citizen, Smoking status: Patient uses tobacco products, light tobacco smoker. Patient/guardian denies using alcohol, street drugs, No barriers to communication noted, The patient speaks fluent [place] Citizen. - Family history: Not pertinent. - : The pt / caregiver states he / she is not on anticoagulants. The pt / caregiver states he / she is not on anticoagulants. Home medication list is obtained from the patient, Home medication list is obtained from the patient, the facility MAR. - Exposure Risk Screening:: None identified. None identified. Screenin:22 Screening information is obtained from the patient. Fall risk: At risk due to gait af2 disturbance, The following interventions are performed due to a positive Fall Risk Screen: Fall Risk is added to Special Handling on the patient Summary Screen. A Fall Risk Bracelet was applied to the patient. Side Rails are placed in the up position. A Call [place] is given with instruction to call for help when getting out of bed. Assistance ADL's: requires no assistance with activities of daily living. Abuse/DV Screen: The patient / caregiver reports he/she is: not in a situation that causes fear, pain or injury. Nutritional screening: No deficits noted. Advance Directives: Currently, there is no health care proxy. home support is adequate. Assessment: 19:33 General: At this time this RN was notified that a pt had collapsed in the waiting room. mb9 This RN went to investigate and found pt lying on her left side. respirations appeared unlabored and pupils appeared dilated. this rn checked the right radial pulse and pt immediately jumped back and appeared startled. when asked why she is here pt states, "I don't know whats wrong. I was here earlier for the same thing and they didn't know what it was. My mom and brother both have seizures.". . 20:22 Neurological: Level of Consciousness is awake, alert, Oriented to person, place, time. af2 Cardiovascular: Rhythm is sinus rhythm No ectopy. Respiratory: Airway is patent Respiratory effort is even, unlabored. Derm: Skin is normal. 20:24 General: pt requests 15 mg Oxycodone, 300 mg of Lyrica, 2mg of Klonopin, and 10 mg of af2 Ambien. provider notified, no orders received.. 21:05 General: pt medicated for pain and anxiety per order at this time, states "this isn't af2 going to work." will continue to monitor.. 22:00 General: Appears in no apparent distress, Behavior is cooperative. Neurological: Level af2 of Consciousness is awake, alert, Oriented to person, place, time. Respiratory: Airway is patent Respiratory effort is even, unlabored. Derm: Skin is normal. 22:48 General: pt assisted to ambulate to bathroom at this time, seated on toilet, closes af2 eyes and states "this is my seizure." stares off to distant object. no symptoms of seizure noted by this movie writer. pt wheeled back to room via wheelchair. . 23:32 General: Appears in no apparent distress, Behavior is cooperative. Neurological: Level af2 of Consciousness is awake, alert, Oriented to person, place, time. Respiratory: Airway is patent Respiratory effort is even, unlabored. Derm: Skin is normal. Vital Signs: 20:23 BP 117 / 71 Supine; Pulse 77; Resp 18 S; Pulse Ox 100% on R/A; af2 20:23 BP 100 / 59 Sitting; Pulse 87; af2 20:23 BP 103 / 59 Standing; Pulse 93; af2 20:42 BP 110 / 66; Pulse 65; Resp 20; Temp 96.7(O); Pulse Ox 95% on R/A; Weight 72.12 kg (R); v Height 6 ft. 0 in. (182.88 cm) (R); Pain 9/10; 23:54 BP 104 / 62; Pulse 74; Resp 18 S; Temp 98.0(O); Pulse Ox 96% on R/A; af2 20:42 Body Mass Index 21.56 (72.12 kg, 182.88 cm) [facility] Vitals: 23:57 Glucose Measurement lab. af2 ED Course: 19:32 Patient visited by Senia Johnson. gjb 19:32 Patient moved to Waiting gjb 19:42 Stacey Hernández RN is Primary Nurse. sls1 19:42 Andie Roe RN is Primary Nurse. sls1 19:42 Triage Initiated rs3 19:42 Patient moved to 4 sls1 19:49 Samy Angulo DO is Attending Physician. mm11 19:49 Patient visited by Samy Angulo DO. mm11 20:00 Inserted saline lock: 20 gauge in right antecubital area and blood collected. The mv5 patient tolerated the procedure well. 20:03 Patient visited by Samy Angulo DO. mm11 20:09 Basic Metabolic Profile Sent. af2 20:09 CBC with Diff Sent. af2 20:09 Cardiac Injury Profile Sent. af2 20:09 HCG,Serum Qualitative Sent. af2 20:09 Thyroid Stimulating Hormone Sent. af2 20:09 Troponin Sent. af2 20:14 [facility] [place] [place] Payment Agreement was scanned into [employer] and attached to record. zo 20:22 The patient / caregiver is instructed regarding the plan of care and ED course. Patient af2 has correct armband on for positive identification. Placed in gown. claims assistant on. Pulse ox on. NIBP on. 20:24 Patient visited by Andie Roe RN. af2 20:27 Patient visited by Rupert Bernal PCA. jmv 20:27 EKG done. (by ED staff). Reviewed by Samy Angulo DO. jmv 20:44 Patient visited by Rupert Bernal PCA. jmv 21:06 Patient visited by Andie Roe RN. af2 22:07 Patient visited by Samy Angulo DO. mm11 22:47 Patient visited by Andie RoeRN. af2 22:50 Patient visited by Andie Roe RN. af2 22:58 CT Head Without Contrast Returned. EDMS 23:22 Patient visited by Samy Angulo DO. mm11 23:30 Driss Hurd is Referral Physician. mm11 23:54 Discontinued IV lock intact, bleeding controlled, pressure dressing applied, No af2 redness/swelling at site. No procedures done that require assistance. Administered Medications: 20:21 Drug: LR 1000 ml [lactated ringers intravenous solution] Route: IV; Rate: bolus; Site: af2 right antecubital; 20:38 CANCELLED (Other Intervention Used): hydrOXYzine 50 mg PO once mm11 21:03 Drug: oxyCODONE-acetaminophen 1 tabs [oxycodone-acetaminophen 5 mg-325 mg tablet (1 af2 tabs)] Route: PO; 21:03 Drug: clonazePAM 1 mg [clonazepam 0.5 mg tablet (2 tabs)] Route: PO; af2 23:29 Not Given (Other Intervention Used): LR Solution 1000 ml IV at bolus once mm11 Order Results: Lab Order: Basic Metabolic Profile; SPEC'M 08/05/16 19:56 Test: GLUCOSE, FASTING; Value: 78; Range: 70-105; Units: MG/DL; Status: F Test: BLOOD UREA NITROGEN; Value: 12; Range: 7-18; Units: MG/DL; Status: F Test: CREATININE FOR GFR; Value: 0.53; Range: 0.55-1.02; Abnormal: Below low normal; Units: MG/DL; Status: F Test: SODIUM LEVEL; Range: 136-145; Units: MEQ/L; Status: I Test: POTASSIUM SERUM; Range: 3.5-5.1; Units: MEQ/L; Status: I Test: CHLORIDE LEVEL; Range: 98-107; Units: MEQ/L; Status: I Test: CARBON DIOXIDE LEVEL; Range: 21-32; Units: MEQ/L; Status: I Test: ANION GAP; Range: 8-16; Units: MEQ/L; Status: I Test: CALCIUM LEVEL; Range: 8.5-10.1; Units: MG/DL; Status: I Test: GLOMERULAR FILTRATION RATE; Value: > 60.0; Range: >60; Status: F Test: SODIUM LEVEL; Value: 144; Range: 136-145; Units: MEQ/L; Status: F Test: POTASSIUM SERUM; Value: 3.5; Range: 3.5-5.1; Units: MEQ/L; Status: F Test: CHLORIDE LEVEL; Value: 108; Range: 98-107; Abnormal: Above high normal; Units: MEQ/L; Status: F Test: CARBON DIOXIDE LEVEL; Value: 30; Range: 21-32; Units: MEQ/L; Status: F Test: ANION GAP; Value: 6; Range: 8-16; Abnormal: Below low normal; Units: MEQ/L; Status: F Test: CALCIUM LEVEL; Value: 9.4; Range: 8.5-10.1; Units: MG/DL; Status: F Test Note: ; Units are mL/min/1.73 m2 Chronic Kidney Disease Staging per NKF: Stage I & II GFR >=60 Normal to Mildly Decreased Stage III GFR 30-59 Moderately Decreased Stage IV GFR 15-29 Severely Decreased Stage V GFR <15 Very Little GFR Left ESRD GFR <15 on TWIST MAKER Lab Order: CBC with Diff; SPEC'M 08/05/16 19:56 Test: WHITE BLOOD COUNT; Value: 6.8; Range: 4.0-10.0; Units: K/mm3; Status: F Test: RED BLOOD COUNT; Value: 4.27; Range: 4.00-5.40; Units: M/mm3; Status: F Test: HEMOGLOBIN; Value: 13.1; Range: 12.0-16.0; Units: g/dl; Status: F Test: HEMATOCRIT; Value: 39.6; Range: 36.0-47.0; Units: %; Status: F Test: MEAN CORPUSCULAR VOLUME; Value: 92.7; Range: 80.0-96.0; Units: fl; Status: F Test: MEAN CORPUSCULAR HEMOGLOBIN; Value: 30.7; Range: 27.0-33.0; Units: pg; Status: F Test: MEAN CORPUSCULAR HGB CONC; Value: 33.2; Range: 32.0-36.5; Units: g/dl; Status: F Test: RED CELL DISTRIBUTION WIDTH; Value: 13.2; Range: 11.5-14.5; Units: %; Status: F Test: PLATELET COUNT, AUTOMATED; Value: 226; Range: 150-450; Units: k/mm3; Status: F Test: NEUTROPHILS %; Value: 57.0; Range: 36.0-66.0; Units: %; Status: F Test: LYMPH %; Value: 33.2; Range: 24.0-44.0; Units: %; Status: F Test: MONO %; Value: 5.4; Range: 0.0-5.0; Abnormal: Above high normal; Units: %; Status: F Test: EOS %; Value: 2.3; Range: 0.0-3.0; Units: %; Status: F Test: BASO %; Value: 0.5; Range: 0.0-1.0; Units: %; Status: F Test: LARGE UNSTAINED CELL %; Value: 1.7; Range: 0.0-4.0; Units: %; Status: F Test: NEUTROPHILS #; Value: 3.9; Range: 1.8-7.7; Units: K/mm3; Status: F Test: LYMPH #; Value: 2.3; Range: 1.5-6.5; Units: K/mm3; Status: F Test: MONO #; Value: 0.4; Range: 0.0-0.8; Units: K/mm3; Status: F Test: EOS #; Value: 0.2; Range: 0.0-0.50; Units: K/mm3; Status: F Test: BASO #; Value: 0.0; Range: 0.0-0.2; Units: K/mm3; Status: F Test: LARGE UNSTAINED CELL #; Value: 0.1; Range: 0.0-0.4; Units: K/mm3; Status: F Lab Order: Cardiac Injury Profile; SPEC'M 08/05/16 19:56 Test: CPK CREATINE PHOSPHOKINASE; Value: 105; Range: 26-192; Units: U/L; Status: F Test: CK-MB VALUE MASS; Value: 1.1; Range: 0.0-3.6; Units: NG/ML; Status: F Test: MB/CK RELATIVE INDEX; Value: 1.04; Range: < OR =4; Status: F Test Note: ; DIAGNOSIS CRITERIA MMB ng/ml Relative Index (RI) NON-AMI < or = 5 N/A [place] > 5 < or = 4 AMI > 5 > 4 Lab Order: HCG,Serum Qualitative; SPEC' 08/05/16 19:56 Test: HCG, SERUM QUALITATIVE; Value: NEGATIVE; Range: NEGATIVE; Status: F Lab Order: Thyroid Stimulating Hormone; [facility] 08/05/16 19:56 Test: THYROID STIMULATING HORMONE; Value: 1.330; Range: 0.358-3.740; Units: uIU/ML; Status: F Lab Order: Troponin; [facility] 08/05/16 19:56 Test: TROPONIN I; Value: < 0.02; Range: < 0.10; Units: NG/ML; Status: F Test Note: ; Troponin I Reference Interval for Siemens Xceive LOCI: 99th Percentile= 0.00-0.045 ng/ml Risk Stratification: <= 0.10 ng/ml Decreased Risk for Adverse Clinical Events. 0.10-1.50 ng/ml Increased Risk for Adverse Clinical Events. Evaluation of additional criterion and/or repeat testing in 2-6 hours is suggested to rule out myocardial damage. >= 1.50 ng/ml Indicative of Myocardial Injury. Radiology Order: CT Head Without Contrast Test: CT Head Without Contrast REASON FOR EXAMINATION: Syncope; ; CT of the head; Clinical history: syncope.; Comparison: 04/10/2012.; Technique: Multiple axial CT images were obtained through the head without administration of contrast; .; Findings: The ventricles and sulci are symmetric bilaterally. There is no evidence of acute hemorrhag; e or infarct. There is no midline shift, mass effect, or extra-axial fluid collection. The osseous st; ructures are unremarkable. The visualized paranasal sinuses and mastoid air cells are clear.; Impression: Negative study.; ; Outcome: 23:30 Discharge ordered by Provider. mm11 23:55 Discharge Assessment: Patient awake, alert and oriented x 3. No cognitive and/or af2 functional deficits noted. Patient verbalized understanding of disposition instructions. patient administered narcotics - yes. Pt provided with safe discharge. The following High Risk Discharge criteria are identified: None. Discharged to home ambulatory. 23:56 Condition: stable. Discharge instructions given to patient, Instructed on discharge af2 instructions, follow up and referral plans. Demonstrated understanding of instructions, Pt was receptive of discharge instructions/ teaching. CT Study completed. Property :Personal belongings accompany Pt. 23:57 Patient left the ED. af2 Signatures: Dispatcher [employer] EDMS Estrella Quan Matthew, DO DO mm11 Mallory Liz,RN RN rs3 Camille Betts RN RN sls1 Beau Matos,RN RN mb9 Andie Roe,RN RN af2 Senia Johnson Jose, JUSTIN GERIAT[employer]IC SOCIAL WORK PROFESSOR Fanta Ballesteros,RN RN mv5 KIMBERLY
--- NOTE | 2016-08-05 23:58 | EDDOCDS ---
Physician Documentation [facility] Name: Ashwini Linda Age: 25 yrs Sex: Female : 1990 Arrival Date: 08/05/2016 Time: 19:30 Bed 4 Private MD: Disposition: 08/05/16 23:30 Discharged to Home/Self Care. Impression: Orthostatic hypotension. - Condition is Stable. - Discharge Instructions: Hypotension, Orthostatic Hypotension. - Prescriptions for Colace 100 mg Oral Tablet - take 1 tablet by ORAL route every 12 hours; 14 tablet. - Medication Reconciliation, Local Pharmacy Hours form. - Follow up: Driss Hurd; When: Call to arrange an appointment; Reason: Continuance of care. - Problem is an acute exacerbation. - Symptoms have improved. Historical: - Allergies: no known allergies; gordy toilet paper; - Home Meds: 1. clonazepam 1 mg Oral tab 1 tab 3 times per day 2. Lyrica 200 mg Oral 3 times per day 3. multivitamin Oral tab twice a day 4. omeprazole 40 mg Oral cpDR 1 cap 2 times per day 5. oxycodone 15 mg Oral tab 1 tab 5 X a day as needed 6. oxycodone-acetaminophen 5-325 mg Oral tab 1 tab as needed as needed 7. Paxil 20 mg Oral tab 1 tab once daily 8. Vitamin B-12 500 mcg Oral tab twice a day hasnt taken in a week 9. clonazepam 1 mg Oral tab 1 tab 3 times per day 10. Lyrica 200 mg Oral 3 times per day 11. multivitamin Oral tab twice a day 12. omeprazole 40 mg Oral cpDR 1 cap 2 times per day 13. oxycodone 15 mg Oral tab 1 tab 5 X a day as needed 14. oxycodone-acetaminophen 5-325 mg Oral tab 1 tab as needed as needed 15. Paxil 20 mg Oral tab 1 tab once daily 16. Vitamin B-12 500 mcg Oral tab twice a day hasnt taken in a week 17. 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 No barriers to communication noted, The patient speaks fluent Spanish, Smoking status: Patient uses tobacco products, light tobacco smoker. Patient/guardian denies using alcohol, street drugs, No barriers to communication noted, The patient speaks fluent Spanish. - Family history: Not pertinent. - : The pt / caregiver states he / she is not on anticoagulants. The pt / caregiver states he / she is not on anticoagulants. Home medication list is obtained from the patient, Home medication list is obtained from the patient, the facility MAR. - Exposure Risk Screening:: None identified. None identified. 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 0 in. (182.88 cm) (R); Pain 9/10; 23:54 BP 104 / 62; Pulse 74; Resp 18 S; Temp 98.0(O); Pulse Ox 96% on R/A; af2 20:42 Body Mass Index 21.56 (72.12 kg, 182.88 cm) jmv MDM: 20:04 Communications Planner/Pulse Ox/q 15 min VS ordered. mm11 20:04 Accucheck ordered. mm11 20:04 IV Saline Lock ordered. mm11 20:04 Orthostatic VS ordered. mm11 20:04 Rhythm Strip to chart ordered. mm11 20:04 LR Solution 1000 ml IV at bolus once ordered. mm11 20:05 Chest, 1 View Ordered. EDMS 20:05 Basic Metabolic Profile Ordered. EDMS 20:05 CBC with Diff Ordered. EDMS 20:05 Cardiac Injury Profile Ordered. EDMS 20:05 Drug Eval Toxicology ED Only Ordered. EDMS 20:05 HCG,Serum Qualitative Ordered. EDMS 20:05 Thyroid Stimulating Hormone Ordered. EDMS 20:05 Troponin Ordered. EDMS 20:05 ECG WITH READING ER PHYS+CARDIAG ordered. EDMS 20:13 Financial registration complete. zo 20:14 [facility] Payment Agreement was scanned into [employer] and attached to record. zo 20:34 oxyCODONE-acetaminophen 5 mg-325 mg 1 tabs PO once ordered. mm11 20:39 clonazePAM 1 mg PO once ordered. mm11 21:40 Basic Metabolic Profile Reviewed. mm11 21:40 CBC with Diff Reviewed. mm11 21:40 Cardiac Injury Profile Reviewed. mm11 21:40 HCG,Serum Qualitative Reviewed. mm11 21:40 Thyroid Stimulating Hormone Reviewed. mm11 21:40 Troponin Reviewed. mm11 21:40 CT Head Without Contrast Ordered. EDMS 23:11 CT Head Without Contrast Reviewed. mm11 23:12 LR Solution 1000 ml IV at bolus once ordered. mm11 Administered Medications: 20:21 Drug: LR 1000 ml [lactated ringers intravenous solution] Route: IV; Rate: bolus; Site: af2 right antecubital; 20:38 CANCELLED (Other Intervention Used): hydrOXYzine 50 mg PO once mm11 21:03 Drug: oxyCODONE-acetaminophen 1 tabs [oxycodone-acetaminophen 5 mg-325 mg tablet (1 af2 tabs)] Route: PO; 21:03 Drug: clonazePAM 1 mg [clonazepam 0.5 mg tablet (2 tabs)] Route: PO; af2 23:29 Not Given (Other Intervention Used): LR Solution 1000 ml IV at bolus once mm11 Signatures: Dispatcher [employer] EDMO Estrella Quan Matthew, DO mm11 Mallory Liz RN RN rs3 Beau Matos RN RN mb9 Andie RoeRN RN af2 The chart was reviewed and I authenticate all verbal orders and agree with the evaluation and treatment provided.Corrections: (The following items were deleted from the chart) 20:38 20:34 hydrOXYzine 50 mg PO once ordered. mm11 mm11 Attachments: 20:14 [facility] Payment Agreement zo MTDD
--- NOTE | 2016-08-06 08:21 | REP ---
AP SEMI-UPRIGHT VIEW OF THE CHEST: This study is compared to that of 07/11/2013. The cardiomediastinal structures, lungs, diaphragms, and bony thorax are normal. There are no findings of pneumothorax or consolidation. IMPRESSION: Normal chest. Unreviewed
--- NOTE | 2016-08-07 08:19 | ECGEPIP ---
Stationary ECG Study [facility] - ED Test Date: 2016-08-05 Pat Name: EMIL BULL Department: Room: - Gender: F Material Handling Technician: leonard : 1990 Requested By: ARSEN Storm Order Number: [id number] Reading MD: Tara Duran Measurements Intervals [place] Rate: 73 P: 77 MT: 155 QRS: 53 QRSD: 95 T: 62 QT: 410 QTc: 453 Interpretive Statements SINUS RHYTHM SIMILAR 07/11/13 Electronically Signed On 08-07-2016 8:19:00 EST by Tara Duran
--- NOTE | 2016-08-08 00:58 | EDDOCDS ---
Physician Documentation [facility] Name: Ashwini Linda Age: 25 yrs Sex: Female : 1990 Arrival Date: 08/05/2016 Time: 19:30 Bed 4 Private MD: Disposition: 08/05/16 23:30 Discharged to Home/Self Care. Impression: Orthostatic hypotension. - Condition is Stable. - Discharge Instructions: Hypotension, Orthostatic Hypotension. - Prescriptions for Colace 100 mg Oral Tablet - take 1 tablet by ORAL route every 12 hours; 14 tablet. - Medication Reconciliation, Local Pharmacy Hours form. - Follow up: Driss Hurd; When: Call to arrange an appointment; Reason: Continuance of care. - Problem is an acute exacerbation. - Symptoms have improved. Historical: - Allergies: no known allergies; gordy toilet paper; - Home Meds: 1. clonazepam 1 mg Oral tab 1 tab 3 times per day 2. Lyrica 200 mg Oral 3 times per day 3. multivitamin Oral tab twice a day 4. omeprazole 40 mg Oral cpDR 1 cap 2 times per day 5. oxycodone 15 mg Oral tab 1 tab 5 X a day as needed 6. oxycodone-acetaminophen 5-325 mg Oral tab 1 tab as needed as needed 7. Paxil 20 mg Oral tab 1 tab once daily 8. Vitamin B-12 500 mcg Oral tab twice a day hasnt taken in a week 9. clonazepam 1 mg Oral tab 1 tab 3 times per day 10. Lyrica 200 mg Oral 3 times per day 11. multivitamin Oral tab twice a day 12. omeprazole 40 mg Oral cpDR 1 cap 2 times per day 13. oxycodone 15 mg Oral tab 1 tab 5 X a day as needed 14. oxycodone-acetaminophen 5-325 mg Oral tab 1 tab as needed as needed 15. Paxil 20 mg Oral tab 1 tab once daily 16. Vitamin B-12 500 mcg Oral tab twice a day hasnt taken in a week 17. 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 No barriers to communication noted, The patient speaks fluent Bengali, Smoking status: Patient uses tobacco products, light tobacco smoker. Patient/guardian denies using alcohol, street drugs, No barriers to communication noted, The patient speaks fluent Bengali. - Family history: Not pertinent. - : The pt / caregiver states he / she is not on anticoagulants. The pt / caregiver states he / she is not on anticoagulants. Home medication list is obtained from the patient, Home medication list is obtained from the patient, the facility MAR. - Exposure Risk Screening:: None identified. None identified. 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 0 in. (182.88 cm) (R); Pain 9/10; 23:54 BP 104 / 62; Pulse 74; Resp 18 S; Temp 98.0(O); Pulse Ox 96% on R/A; af2 20:42 Body Mass Index 21.56 (72.12 kg, 182.88 cm) jmv MDM: 20:04 Ton Container Filler/Pulse Ox/q 15 min VS ordered. mm11 20:04 Accucheck ordered. mm11 20:04 IV Saline Lock ordered. mm11 20:04 Orthostatic VS ordered. mm11 20:04 Rhythm Strip to chart ordered. mm11 20:04 LR Solution 1000 ml IV at bolus once ordered. mm11 20:05 Chest, 1 View Ordered. EDMS 20:05 Basic Metabolic Profile Ordered. EDMS 20:05 CBC with Diff Ordered. EDMS 20:05 Cardiac Injury Profile Ordered. EDMS 20:05 Drug Eval Toxicology ED Only Ordered. EDMS 20:05 HCG,Serum Qualitative Ordered. EDMS 20:05 Thyroid Stimulating Hormone Ordered. EDMS 20:05 Troponin Ordered. EDMS 20:05 ECG WITH READING ER PHYS+CARDIAG ordered. EDMS 20:13 Financial registration complete. zo 20:14 [facility] Payment Agreement was scanned into [employer] and attached to record. zo 20:34 oxyCODONE-acetaminophen 5 mg-325 mg 1 tabs PO once ordered. mm11 20:39 clonazePAM 1 mg PO once ordered. mm11 21:40 Basic Metabolic Profile Reviewed. mm11 21:40 CBC with Diff Reviewed. mm11 21:40 Cardiac Injury Profile Reviewed. mm11 21:40 HCG,Serum Qualitative Reviewed. mm11 21:40 Thyroid Stimulating Hormone Reviewed. mm11 21:40 Troponin Reviewed. mm11 21:40 CT Head Without Contrast Ordered. EDMS 23:11 CT Head Without Contrast Reviewed. mm11 23:12 LR Solution 1000 ml IV at bolus once ordered. mm11 08/06 09:30 T-Sheet-- Draft Copy was scanned into [employer] and attached to record. gb 09:30 ECG/EKG was scanned into [employer] and attached to record. gb 09:30 Radiology Report was scanned into [employer] and attached to record. gb Administered Medications: 08/05 20:21 Drug: LR 1000 ml [lactated ringers intravenous solution] Route: IV; Rate: bolus; Site: af2 right antecubital; 20:38 CANCELLED (Other Intervention Used): hydrOXYzine 50 mg PO once mm11 21:03 Drug: oxyCODONE-acetaminophen 1 tabs [oxycodone-acetaminophen 5 mg-325 mg tablet (1 af2 tabs)] Route: PO; 21:03 Drug: clonazePAM 1 mg [clonazepam 0.5 mg tablet (2 tabs)] Route: PO; af2 23:29 Not Given (Other Intervention Used): LR Solution 1000 ml IV at bolus once mm11 Signatures: Dispatcher [employer] EDMS Graciela Shine, Juan Miguel Reg Estrella Sandoval Matthew, DO DO mm11 Mallory Liz RN RN rs3 Beau Matos,RN RN mb9 Andie Roe RN RN af2 The chart was reviewed and I authenticate all verbal orders and agree with the evaluation and treatment provided.Corrections: (The following items were deleted from the chart) 20:38 20:34 hydrOXYzine 50 mg PO once ordered. mm11 mm11 Attachments: 20:14 [facility] Payment Agreement zo 08/06 09:30 T-Sheet-- Draft Copy gb 09:30 ECG/EKTyson gb Chart Complete MTDD
--- NOTE | 2016-08-08 00:58 | EDDOCDS ---
Nurse's Notes [facility] [place] Name: Emil Bull Age: 25 yrs Sex: Female : 1990 Arrival Date: 08/05/2016 Time: 19:30 Bed 4 Private MD: Diagnosis: Orthostatic hypotension Presentation: 08/05 19:38 Presenting complaint: Patient states: been passing out more frequently this week. H/o rs3 similar episodes since November s/p gastric bypass. was seen here yesterday. was sent home. it happened today again when emptying garbage found herself on the floor waking up. Adult Sepsis Screening: The patient does not have new or worsening altered mentation. Patient's respiratory rate is less than 22. Systolic blood pressure is greater than 100. Patient has a qSOFA score of 0- Negative Sepsis Screen. Suicide/Homicide risk assessment- the patient denies having any suicidal and/or homicidal ideations and does not present with any other emotional, behavioral or mental health complaints. Status: Patient is not a food service employee or dependent. Transition of care: patient was not received from another setting of care. 19:38 Acuity: TANMAY Level 3 rs3 19:38 Method Of Arrival: Wheelchair rs3 19:51 Red Flag criteria, patient assessed and taken directly to a bed. mb9 Triage Assessment: 19:43 General: Appears in no apparent distress. Pain: Location: abdomen. HIV screening NA for rs3 this visit Offered previously. Neurological: Level of Consciousness is awake, alert. 19:50 General: Appears unkempt. General: Smells of alcohol. Neurological: Level of mb9 Consciousness is awake, alert, Oriented to person, place, time, pt appears to become unresponsive for 10 to 20 seconds and then she arouses on her own and appears alert and oriented. pt denies having any recollection of the event. . Respiratory: Airway is patent Respiratory effort is even, unlabored. 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 clonazepam 1 mg Oral tab 1 tab 3 times per day 2. Lyrica 200 mg Oral 3 times per day 3. multivitamin Oral tab twice a day 4. omeprazole 40 mg Oral cpDR 1 cap 2 times per day 5. oxycodone 15 mg Oral tab 1 tab 5 X a day as needed 6. oxycodone-acetaminophen 5-325 mg Oral tab 1 tab as needed as needed 7. Paxil 20 mg Oral tab 1 tab once daily 8. Vitamin B-12 500 mcg Oral tab twice a day hasnt taken in a week 9. clonazepam 1 mg Oral tab 1 tab 3 times per day 10. Lyrica 200 mg Oral 3 times per day 11. multivitamin Oral tab twice a day 12. omeprazole 40 mg Oral cpDR 1 cap 2 times per day 13. oxycodone 15 mg Oral tab 1 tab 5 X a day as needed 14. oxycodone-acetaminophen 5-325 mg Oral tab 1 tab as needed as needed 15. Paxil 20 mg Oral tab 1 tab once daily 16. Vitamin B-12 500 mcg Oral tab twice a day hasnt taken in a week 17. 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 No barriers to communication noted, The patient speaks fluent Swazi, Smoking status: Patient uses tobacco products, light tobacco smoker. Patient/guardian denies using alcohol, street drugs, No barriers to communication noted, The patient speaks fluent Swazi. - Family history: Not pertinent. - : The pt / caregiver states he / she is not on anticoagulants. The pt / caregiver states he / she is not on anticoagulants. Home medication list is obtained from the patient, Home medication list is obtained from the patient, the facility MAR. - Exposure Risk Screening:: None identified. None identified. Screenin:22 Screening information is obtained from the patient. Fall risk: At risk due to gait af2 disturbance, The following interventions are performed due to a positive Fall Risk Screen: Fall Risk is added to Special Handling on the patient Summary Screen. A Fall Risk Bracelet was applied to the patient. Side Rails are placed in the up position. A Call [place] is given with instruction to call for help when getting out of bed. Assistance ADL's: requires no assistance with activities of daily living. Abuse/DV Screen: The patient / caregiver reports he/she is: not in a situation that causes fear, pain or injury. Nutritional screening: No deficits noted. Advance Directives: Currently, there is no health care proxy. home support is adequate. Assessment: 19:33 General: At this time this RN was notified that a pt had collapsed in the waiting room. mb9 This RN went to investigate and found pt lying on her left side. respirations appeared unlabored and pupils appeared dilated. this rn checked the right radial pulse and pt immediately jumped back and appeared startled. when asked why she is here pt states, "I don't know whats wrong. I was here earlier for the same thing and they didn't know what it was. My mom and brother both have seizures.". . 20:22 Neurological: Level of Consciousness is awake, alert, Oriented to person, place, time. af2 Cardiovascular: Rhythm is sinus rhythm No ectopy. Respiratory: Airway is patent Respiratory effort is even, unlabored. Derm: Skin is normal. 20:24 General: pt requests 15 mg Oxycodone, 300 mg of Lyrica, 2mg of Klonopin, and 10 mg of af2 Ambien. provider notified, no orders received.. 21:05 General: pt medicated for pain and anxiety per order at this time, states "this isn't af2 going to work." will continue to monitor.. 22:00 General: Appears in no apparent distress, Behavior is cooperative. Neurological: Level af2 of Consciousness is awake, alert, Oriented to person, place, time. Respiratory: Airway is patent Respiratory effort is even, unlabored. Derm: Skin is normal. 22:48 General: pt assisted to ambulate to bathroom at this time, seated on toilet, closes af2 eyes and states "this is my seizure." stares off to distant object. no symptoms of seizure noted by this staff writer. pt wheeled back to room via wheelchair. . 23:32 General: Appears in no apparent distress, Behavior is cooperative. Neurological: Level af2 of Consciousness is awake, alert, Oriented to person, place, time. Respiratory: Airway is patent Respiratory effort is even, unlabored. Derm: Skin is normal. Vital Signs: 20:23 BP 117 / 71 Supine; Pulse 77; Resp 18 S; Pulse Ox 100% on R/A; af2 20:23 BP 100 / 59 Sitting; Pulse 87; af2 20:23 BP 103 / 59 Standing; Pulse 93; af2 20:42 BP 110 / 66; Pulse 65; Resp 20; Temp 96.7(O); Pulse Ox 95% on R/A; Weight 72.12 kg (R); v Height 6 ft. 0 in. (182.88 cm) (R); Pain 9/10; 23:54 BP 104 / 62; Pulse 74; Resp 18 S; Temp 98.0(O); Pulse Ox 96% on R/A; af2 20:42 Body Mass Index 21.56 (72.12 kg, 182.88 cm) [facility] Vitals: 23:57 Glucose Measurement lab. af2 ED Course: 19:32 Patient visited by Senia Johnson. gjb 19:32 Patient moved to Waiting gjb 19:42 Stacey Hernández RN is Primary Nurse. sls1 19:42 Andie Roe RN is Primary Nurse. sls1 19:42 Triage Initiated rs3 19:42 Patient moved to 4 sls1 19:49 Arsen Angulo DO is Attending Physician. mm11 19:49 Patient visited by Arsen Angulo DO. mm11 20:00 Inserted saline lock: 20 gauge in right antecubital area and blood collected. The mv5 patient tolerated the procedure well. 20:03 Patient visited by Arsen Angulo DO. mm11 20:09 Basic Metabolic Profile Sent. af2 20:09 CBC with Diff Sent. af2 20:09 Cardiac Injury Profile Sent. af2 20:09 HCG,Serum Qualitative Sent. af2 20:09 Thyroid Stimulating Hormone Sent. af2 20:09 Troponin Sent. af2 20:14 [facility] Payment Agreement was scanned into [employer] and attached to record. zo 20:22 The patient / caregiver is instructed regarding the plan of care and ED course. Patient af2 has correct armband on for positive identification. Placed in gown. radiation monitor on. Pulse ox on. NIBP on. 20:24 Patient visited by Andie Roe RN. af2 20:27 Patient visited by Rupert Bernal PCA. jmv 20:27 EKG done. (by ED staff). Reviewed by Arsen Angulo DO. jmv 20:44 Patient visited by Rupert Bernal PCA. jmv 21:06 Patient visited by Andie Roe,DAVID. af2 22:07 Patient visited by Arsen Angulo DO. mm11 22:47 Patient visited by Andie Roe,RN. af2 22:50 Patient visited by Andie Roe,RN. af2 22:58 CT Head Without Contrast Returned. EDMS 23:22 Patient visited by Arsen Angulo DO. mm11 23:30 Driss Hurd is Referral Physician. mm11 23:54 Discontinued IV lock intact, bleeding controlled, pressure dressing applied, No af2 redness/swelling at site. No procedures done that require assistance. 08/06 08:47 Chest, 1 View Returned. EDMS 09:30 T-Sheet-- Draft Copy was scanned into [employer] and attached to record. gb 09:30 ECG/EKG was scanned into [employer] and attached to record. gb 09:30 Radiology Report was scanned into [employer] and attached to record. gb 08/07 08:41 EKG-ADULT Returned. EDMS Administered Medications: 08/05 20:21 Drug: LR 1000 ml [lactated ringers intravenous solution] Route: IV; Rate: bolus; Site: af2 right antecubital; 20:38 CANCELLED (Other Intervention Used): hydrOXYzine 50 mg PO once mm11 21:03 Drug: oxyCODONE-acetaminophen 1 tabs [oxycodone-acetaminophen 5 mg-325 mg tablet (1 af2 tabs)] Route: PO; 21:03 Drug: clonazePAM 1 mg [clonazepam 0.5 mg tablet (2 tabs)] Route: PO; af2 23:29 Not Given (Other Intervention Used): LR Solution 1000 ml IV at bolus once mm11 Order Results: Lab Order: Basic Metabolic Profile; SPEC'M 08/05/16 19:56 Test: GLUCOSE, FASTING; Value: 78; Range: 70-105; Units: MG/DL; Status: F Test: BLOOD UREA NITROGEN; Value: 12; Range: 7-18; Units: MG/DL; Status: F Test: CREATININE FOR GFR; Value: 0.53; Range: 0.55-1.02; Abnormal: Below low normal; Units: MG/DL; Status: F Test: SODIUM LEVEL; Range: 136-145; Units: MEQ/L; Status: I Test: POTASSIUM SERUM; Range: 3.5-5.1; Units: MEQ/L; Status: I Test: CHLORIDE LEVEL; Range: 98-107; Units: MEQ/L; Status: I Test: CARBON DIOXIDE LEVEL; Range: 21-32; Units: MEQ/L; Status: I Test: ANION GAP; Range: 8-16; Units: MEQ/L; Status: I Test: CALCIUM LEVEL; Range: 8.5-10.1; Units: MG/DL; Status: I Test: GLOMERULAR FILTRATION RATE; Value: > 60.0; Range: >60; Status: F Test: SODIUM LEVEL; Value: 144; Range: 136-145; Units: MEQ/L; Status: F Test: POTASSIUM SERUM; Value: 3.5; Range: 3.5-5.1; Units: MEQ/L; Status: F Test: CHLORIDE LEVEL; Value: 108; Range: 98-107; Abnormal: Above high normal; Units: MEQ/L; Status: F Test: CARBON DIOXIDE LEVEL; Value: 30; Range: 21-32; Units: MEQ/L; Status: F Test: ANION GAP; Value: 6; Range: 8-16; Abnormal: Below low normal; Units: MEQ/L; Status: F Test: CALCIUM LEVEL; Value: 9.4; Range: 8.5-10.1; Units: MG/DL; Status: F Test Note: ; Units are mL/min/1.73 m2 Chronic Kidney Disease Staging per NKF: Stage I & II GFR >=60 Normal to Mildly Decreased Stage III GFR 30-59 Moderately Decreased Stage IV GFR 15-29 Severely Decreased Stage V GFR <15 Very Little GFR Left ESRD GFR <15 on BLOOD BANK CALENDAR CONTROL CLERK Lab Order: CBC with Diff; SPEC'M 08/05/16 19:56 Test: WHITE BLOOD COUNT; Value: 6.8; Range: 4.0-10.0; Units: K/mm3; Status: F Test: RED BLOOD COUNT; Value: 4.27; Range: 4.00-5.40; Units: M/mm3; Status: F Test: HEMOGLOBIN; Value: 13.1; Range: 12.0-16.0; Units: g/dl; Status: F Test: HEMATOCRIT; Value: 39.6; Range: 36.0-47.0; Units: %; Status: F Test: MEAN CORPUSCULAR VOLUME; Value: 92.7; Range: 80.0-96.0; Units: fl; Status: F Test: MEAN CORPUSCULAR HEMOGLOBIN; Value: 30.7; Range: 27.0-33.0; Units: pg; Status: F Test: MEAN CORPUSCULAR HGB CONC; Value: 33.2; Range: 32.0-36.5; Units: g/dl; Status: F Test: RED CELL DISTRIBUTION WIDTH; Value: 13.2; Range: 11.5-14.5; Units: %; Status: F Test: PLATELET COUNT, AUTOMATED; Value: 226; Range: 150-450; Units: k/mm3; Status: F Test: NEUTROPHILS %; Value: 57.0; Range: 36.0-66.0; Units: %; Status: F Test: LYMPH %; Value: 33.2; Range: 24.0-44.0; Units: %; Status: F Test: MONO %; Value: 5.4; Range: 0.0-5.0; Abnormal: Above high normal; Units: %; Status: F Test: EOS %; Value: 2.3; Range: 0.0-3.0; Units: %; Status: F Test: BASO %; Value: 0.5; Range: 0.0-1.0; Units: %; Status: F Test: LARGE UNSTAINED CELL %; Value: 1.7; Range: 0.0-4.0; Units: %; Status: F Test: NEUTROPHILS #; Value: 3.9; Range: 1.8-7.7; Units: K/mm3; Status: F Test: LYMPH #; Value: 2.3; Range: 1.5-6.5; Units: K/mm3; Status: F Test: MONO #; Value: 0.4; Range: 0.0-0.8; Units: K/mm3; Status: F Test: EOS #; Value: 0.2; Range: 0.0-0.50; Units: K/mm3; Status: F Test: BASO #; Value: 0.0; Range: 0.0-0.2; Units: K/mm3; Status: F Test: LARGE UNSTAINED CELL #; Value: 0.1; Range: 0.0-0.4; Units: K/mm3; Status: F Lab Order: Cardiac Injury Profile; [facility] 08/05/16 19:56 Test: CPK CREATINE PHOSPHOKINASE; Value: 105; Range: 26-192; Units: U/L; Status: F Test: CK-MB VALUE MASS; Value: 1.1; Range: 0.0-3.6; Units: NG/ML; Status: F Test: MB/CK RELATIVE INDEX; Value: 1.04; Range: < OR =4; Status: F Test Note: ; DIAGNOSIS CRITERIA MMB ng/ml Relative Index (RI) NON-AMI < or = 5 N/A [place] > 5 < or = 4 AMI > 5 > 4 Lab Order: HCG,Serum Qualitative; [facility] 08/05/16 19:56 Test: HCG, SERUM QUALITATIVE; Value: NEGATIVE; Range: NEGATIVE; Status: F Lab Order: Thyroid Stimulating Hormone; [facility] 08/05/16 19:56 Test: THYROID STIMULATING HORMONE; Value: 1.330; Range: 0.358-3.740; Units: uIU/ML; Status: F Lab Order: Troponin; [facility] 08/05/16 19:56 Test: TROPONIN I; Value: < 0.02; Range: < 0.10; Units: NG/ML; Status: F Test Note: ; Troponin I Reference Interval for [employer] LOCI: 99th Percentile= 0.00-0.045 ng/ml Risk Stratification: <= 0.10 ng/ml Decreased Risk for Adverse Clinical Events. 0.10-1.50 ng/ml Increased Risk for Adverse Clinical Events. Evaluation of additional criterion and/or repeat testing in 2-6 hours is suggested to rule out myocardial damage. >= 1.50 ng/ml Indicative of Myocardial Injury. 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; : 1990 Requested By: ARSEN Storm; Order Number: [id number] Reading MD: Tara Duran; Measurements; Intervals [place]; Rate: 73 P: 77; [place]: 155 QRS: 53; QRSD: 95 T: 62; QT: 410; QTc: 453; Interpretive Statements; SINUS RHYTHM; SIMILAR 07/11/13; Electronically Signed On 08-07-2016 8:19:00 EST by Tara Duran; Radiology Order: CT Head Without Contrast Test: CT Head Without Contrast REASON FOR EXAMINATION: Syncope; ; CT of the head; Clinical history: syncope.; Comparison: 04/10/2012.; Technique: Multiple axial CT images were obtained through the head without administration of contrast; .; Findings: The ventricles and sulci are symmetric bilaterally. There is no evidence of acute hemorrhag; e or infarct. There is no midline shift, mass effect, or extra-axial fluid collection. The osseous st; ructures are unremarkable. The visualized paranasal sinuses and mastoid air cells are clear.; Impression: Negative study.; ; Outcome: 23:30 Discharge ordered by Provider. mm11 23:55 Discharge Assessment: Patient awake, alert and oriented x 3. No cognitive and/or af2 functional deficits noted. Patient verbalized understanding of disposition instructions. patient administered narcotics - yes. Pt provided with safe discharge. The following High Risk Discharge criteria are identified: None. Discharged to home ambulatory. 23:56 Condition: stable. Discharge instructions given to patient, Instructed on discharge af2 instructions, follow up and referral plans. Demonstrated understanding of instructions, Pt was receptive of discharge instructions/ teaching. CT Study completed. Property :Personal belongings accompany Pt. 23:57 Patient left the ED. af2 Signatures: Dispatcher [employer] EDMS Graciela Shine, Reg Reg gb Estrella Quan Matthew, DO DO mm11 Mallory Liz,RN RN rs3 Camille Betts, RN RN sls1 Beau Matos,RN RN mb9 Andie Roe,RN RN af2 Senia Johnsonb Rupert Bernal, COUNTY SURVEYOR COUNTY SURVEYOR lexyv Fanta Lopez,RN RN mv5 Chart Complete MTDD
--- NOTE | 2016-08-08 00:58 | EDDOCDS ---
Physician Documentation [facility] Name: Ashwini Linda Age: 25 yrs Sex: Female : 1990 Arrival Date: 08/05/2016 Time: 19:30 Bed 4 Private MD: Disposition: 08/05/16 23:30 Discharged to Home/Self Care. Impression: Orthostatic hypotension. - Condition is Stable. - Discharge Instructions: Hypotension, Orthostatic Hypotension. - Prescriptions for Colace 100 mg Oral Tablet - take 1 tablet by ORAL route every 12 hours; 14 tablet. - Medication Reconciliation, Local Pharmacy Hours form. - Follow up: Driss Hurd; When: Call to arrange an appointment; Reason: Continuance of care. - Problem is an acute exacerbation. - Symptoms have improved. Historical: - Allergies: no known allergies; gordy toilet paper; - Home Meds: 1. clonazepam 1 mg Oral tab 1 tab 3 times per day 2. Lyrica 200 mg Oral 3 times per day 3. multivitamin Oral tab twice a day 4. omeprazole 40 mg Oral cpDR 1 cap 2 times per day 5. oxycodone 15 mg Oral tab 1 tab 5 X a day as needed 6. oxycodone-acetaminophen 5-325 mg Oral tab 1 tab as needed as needed 7. Paxil 20 mg Oral tab 1 tab once daily 8. Vitamin B-12 500 mcg Oral tab twice a day hasnt taken in a week 9. clonazepam 1 mg Oral tab 1 tab 3 times per day 10. Lyrica 200 mg Oral 3 times per day 11. multivitamin Oral tab twice a day 12. omeprazole 40 mg Oral cpDR 1 cap 2 times per day 13. oxycodone 15 mg Oral tab 1 tab 5 X a day as needed 14. oxycodone-acetaminophen 5-325 mg Oral tab 1 tab as needed as needed 15. Paxil 20 mg Oral tab 1 tab once daily 16. Vitamin B-12 500 mcg Oral tab twice a day hasnt taken in a week 17. 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 No barriers to communication noted, The patient speaks fluent Upper Sorbian, Smoking status: Patient uses tobacco products, light tobacco smoker. Patient/guardian denies using alcohol, street drugs, No barriers to communication noted, The patient speaks fluent Upper Sorbian. - Family history: Not pertinent. - : The pt / caregiver states he / she is not on anticoagulants. The pt / caregiver states he / she is not on anticoagulants. Home medication list is obtained from the patient, Home medication list is obtained from the patient, the facility MAR. - Exposure Risk Screening:: None identified. None identified. 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 0 in. (182.88 cm) (R); Pain 9/10; 23:54 BP 104 / 62; Pulse 74; Resp 18 S; Temp 98.0(O); Pulse Ox 96% on R/A; af2 20:42 Body Mass Index 21.56 (72.12 kg, 182.88 cm) jmv MDM: 20:04 Pelt Shearer/Pulse Ox/q 15 min VS ordered. mm11 20:04 Accucheck ordered. mm11 20:04 IV Saline Lock ordered. mm11 20:04 Orthostatic VS ordered. mm11 20:04 Rhythm Strip to chart ordered. mm11 20:04 LR Solution 1000 ml IV at bolus once ordered. mm11 20:05 Chest, 1 View Ordered. EDMS 20:05 Basic Metabolic Profile Ordered. EDMS 20:05 CBC with Diff Ordered. EDMS 20:05 Cardiac Injury Profile Ordered. EDMS 20:05 Drug Eval Toxicology ED Only Ordered. EDMS 20:05 HCG,Serum Qualitative Ordered. EDMS 20:05 Thyroid Stimulating Hormone Ordered. EDMS 20:05 Troponin Ordered. EDMS 20:05 ECG WITH READING ER PHYS+CARDIAG ordered. EDMS 20:13 Financial registration complete. zo 20:14 [facility] Payment Agreement was scanned into [employer] and attached to record. zo 20:34 oxyCODONE-acetaminophen 5 mg-325 mg 1 tabs PO once ordered. mm11 20:39 clonazePAM 1 mg PO once ordered. mm11 21:40 Basic Metabolic Profile Reviewed. mm11 21:40 CBC with Diff Reviewed. mm11 21:40 Cardiac Injury Profile Reviewed. mm11 21:40 HCG,Serum Qualitative Reviewed. mm11 21:40 Thyroid Stimulating Hormone Reviewed. mm11 21:40 Troponin Reviewed. mm11 21:40 CT Head Without Contrast Ordered. EDMS 23:11 CT Head Without Contrast Reviewed. mm11 23:12 LR Solution 1000 ml IV at bolus once ordered. mm11 08/06 09:30 T-Sheet-- Draft Copy was scanned into [employer] and attached to record. gb 09:30 ECG/EKG was scanned into [employer] and attached to record. gb 09:30 Radiology Report was scanned into [employer] and attached to record. gb Administered Medications: 08/05 20:21 Drug: LR 1000 ml [lactated ringers intravenous solution] Route: IV; Rate: bolus; Site: af2 right antecubital; 20:38 CANCELLED (Other Intervention Used): hydrOXYzine 50 mg PO once mm11 21:03 Drug: oxyCODONE-acetaminophen 1 tabs [oxycodone-acetaminophen 5 mg-325 mg tablet (1 af2 tabs)] Route: PO; 21:03 Drug: clonazePAM 1 mg [clonazepam 0.5 mg tablet (2 tabs)] Route: PO; af2 23:29 Not Given (Other Intervention Used): LR Solution 1000 ml IV at bolus once mm11 Signatures: Dispatcher [employer] EDMS Graciela Shine, Juan Miguel Reg Estrella Sandoval Matthew, DO DO mm11 Mallory Liz RN RN rs3 Beau Matos,RN RN mb9 Andie Roe RN RN af2 The chart was reviewed and I authenticate all verbal orders and agree with the evaluation and treatment provided.Corrections: (The following items were deleted from the chart) 20:38 20:34 hydrOXYzine 50 mg PO once ordered. mm11 mm11 Attachments: 20:14 [facility] Payment Agreement zo 08/06 09:30 T-Sheet-- Draft Copy gb 09:30 ECG/EKTyson gb Chart Complete MTDD
== END 2016-08-05 23:57 | disposition home or self-care (01) ==
LOC: M ED 19:30
DX: F44.5 Conversion disorder with seizures or convulsions (principal); I95.1 Orthostatic hypotension; F41.9 Anxiety disorder, unspecified; J45.909 Unspecified asthma, uncomplicated; G89.29 Other chronic pain; M54.9 Dorsalgia, unspecified; Z98.84 Bariatric surgery status; Z72.0 Tobacco use; Z79.899 Other long term (current) drug therapy

== ENCOUNTER 2016-08-10 14:11 | Inpatient (IN) | payer OTHER ==
[~2016-08-10] VITALS: Ht 182.9 cm; Wt 74.3 kg
[2016-08-10 14:51] LABS: BASO % 0.4 % (0.0-1.0); EOS # 0.2 K/mm3 (0.0-0.50); EOS % 2.8 % (0.0-3.0); LARGE UNSTAINED CELL # 0.1 K/mm3 (0.0-0.4); LARGE UNSTAINED CELL % 1.8 % (0.0-4.0); LYMPH # 2.6 K/mm3 (1.5-6.5); LYMPH % 39.8 % (24.0-44.0); MEAN CORPUSCULAR VOLUME 90.9 fl (80.0-96.0); MONO # 0.3 K/mm3 (0.0-0.8); MONO % 4.4 % (0.0-5.0); NEUTROPHILS # 3.3 K/mm3 (1.8-7.7); NEUTROPHILS % 50.8 % (36.0-66.0); PLATELET COUNT, AUTOMATED 276 k/mm3 (150-450); RED CELL DISTRIBUTION WIDTH 12.8 % (11.5-14.5); WHITE BLOOD COUNT 6.4 K/mm3 (4.0-10.0)
[2016-08-10 15:09] LABS: CONTROL LINE HCG INT CTR LINE PRESENT
[2016-08-10 15:16] LABS: ALBUMIN/GLOBULIN RATIO 0.95 (1.00-1.93); ALKALINE PHOSPHATASE 170 U/L (45-117); ALT/SGPT 29 U/L (12-78); ANION GAP 8 MEQ/L (8-16); AST/SGOT 18 U/L (15-37); BILIRUBIN,DIRECT < 0.1 MG/DL (0.0-0.2); BILIRUBIN,TOTAL 0.4 MG/DL (0.2-1.0); BLOOD UREA NITROGEN 11 MG/DL (7-18); CALCIUM LEVEL 9.4 MG/DL (8.5-10.1); CARBON DIOXIDE LEVEL 29 MEQ/L (21-32); CHLORIDE LEVEL 105 MEQ/L (98-107); CREATININE FOR GFR 0.52 MG/DL (0.55-1.02); GLOMERULAR FILTRATION RATE > 60.0 (>60); GLUCOSE, FASTING 74 MG/DL (70-105); POTASSIUM SERUM 3.7 MEQ/L (3.5-5.1); SODIUM LEVEL 142 MEQ/L (136-145); TOTAL PROTEIN 8.2 GM/DL (6.4-8.2)
--- NOTE | 2016-08-10 15:45 | REP ---
Clinical: Seizures . Comparison: 08/05/2016 . Findings: The ventricles, sulci, and cisterns are normal in position and appearance. Watson-white differentiation is maintained. No acute intracranial hemorrhage, mass/mass effect, pathology or trauma/injury. No evidence for acute infarction. No extra-axial fluid collection. Calvarium is intact. Paranasal sinuses and mastoid air cells are clear. Impression: Normal noncontrast head CT. No evidence for acute intracranial pathology or trauma/injury. Signed by Jose R Bustillos MD 08/10/2016 03:36 P
--- NOTE | 2016-08-10 15:57 | REP ---
Clinical: Syncope . Comparison: 08/05/2016 . Technique: AP and lateral. Findings: The mediastinum and cardiac silhouette are normal. The lung dodd are clear and without acute consolidation, effusion, or pneumothorax. The skeletal structures are intact and normal. Impression: 1. No acute cardiopulmonary process. Signed by Jose R Bustillos MD 08/10/2016 03:49 P
[2016-08-10 17:46] LABS: CONTROL LINE INT CTR LINE PRESENT; METHADONE URINE NEGATIVE (NEGATIVE); TRICYCLIC ANTIDEPRESS URINE NEGATIVE (NEGATIVE)
--- NOTE | 2016-08-10 18:10 | ECGEPIP ---
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
[2016-08-10] MEDS ORDERED: ONDANSETRON 4MG/2ML VIAL (J2405) IV PRN (18:15)
[2016-08-10] MEDS ORDERED: ADDE5TAB5 PO (18:31)
[2016-08-10] MEDS ORDERED: VITA-122 PO (18:31)
[2016-08-10] MEDS ORDERED: FLUO20CA8 PO (18:31)
[2016-08-10] MEDS ORDERED: LYRI200C PO (18:31)
[2016-08-10] MEDS ORDERED: CLON1TAB PO (18:31)
[2016-08-10] MEDS ORDERED: AMBI10TA PO (18:31)
[2016-08-10] MEDS ORDERED: VITA100072 PO (18:31)
[2016-08-10] MEDS ORDERED: FERR325T PO (18:31)
[2016-08-10] MEDS ORDERED: OXYC15TA76 PO (18:31)
[2016-08-10] MEDS ORDERED: VITMTA PO (18:31)
[2016-08-10] MEDS: NS 1,000 ML IV SCH (18:35)
[2016-08-10] MEDS ORDERED: LORazepam 2 MG/ML VIAL (J2060) IV PRN (18:45)
[2016-08-10] MEDS ORDERED: LORazepam 2 MG/ML VIAL (J2060) As Ordered ONE (18:47)
--- NOTE | 2016-08-10 19:14 | HPEPDOC ---
Medical History and Physical Date of Admission Aug 10, 2016 at 18:08 History and Physical PRIMARY CARE PROVIDER: Adrián Rios CHIEF COMPLAINT: Seizures HISTORY OF PRESENT ILLNESS: Patient is a 25-year-old female with past medical history significant for anxiety, asthma, chronic back pain, stomach ulcers who presented to ER after having reported seizure. Patient says that she has been having seizures for the last 5 days, seizures occurring every few hours. Patient reports seizures last approximately 60 seconds. She is reporting loss of consciousness with seizures. She says after events she is groggy, confused and scared. She reports to possibly biting tongue with these episodes. She denies any episodes of incontinence. She denies any history of these episodes or of seizures. ALLERGIES: None PAST MEDICAL HISTORY: Anxiety, asthma, chronic back pain, perforated stomach ulcer PAST SURGICAL HISTORY: Gastric bypass, right ankle surgery, tonsillectomy, cholecystectomy SOCIAL HISTORY: Patient reports smoking approximately one half pack of cigarettes per day for the last 16 years. She initially denied any recreational drug use saying that she had been clean for the last 4-1/2 months, but then said she smoked marijuana about a week ago. She denies any alcohol use. She lives by herself and does not work, she is disabled. CODE STATUS: Full code REVIEW OF SYSTEMS: Constitutional: Positive for old sweats with seizure episodes HEENT: Head: Positive for headaches, dizziness, lightheadedness. Eyes: Positive for blurry vision with episodes. Ears: denies hearing loss, tinnitus, ear pain. Nose: Positive for sinus pressure. Throat: denies sore throat, cough, difficulty swallowing Cardiovascular: Positive for chest pain with anxiety Respiratory: Positive for shortness of breath after seizure episodes Gastrointestinal: Positive for nausea and vomiting after seizure events, positive for diarrhea and constipation : Positive for crusting/discharge on underwear. She has a history of urinary tract infections Musculoskeletal: Positive for chronic back and neck pain Neurological: denies numbness, tingling, paresthesias PHYSICAL EXAMINATION: Vitals: Temperature 95.0, pulse 74, respiratory rate 18, blood pressure 132/77, pulse ox 100% on room air General: Patient obtunded, verbal and able to answer questions however patient difficult to keep on track. She does not appear to be in any acute distress HEENT: Head: normocephalic, atraumatic. Eyes: pupils equally reactive to light , conjunctiva are pink, sclera are nonicteric. Throat: buccal mucosa is pink and moist with no lesions in the oropharynx Respiratory: clear to auscultation bilaterally with no wheezes, rales, or rhonchi. Cardiovascular: Bradycardic with regular rhythm, with no murmurs, rubs or gallops. Abdomen: soft, nontender, nondistended, no hepatosplenomegaly appreciated. Bowel sounds present. Extremities: 5/5 strength in upper and lower extremities bilaterally, no swelling in either lower extremity bilaterally Neurological: sensation intact and symmetrical in upper and lower extremities bilaterally Lymphatics: no palpable lymph nodes, swollen glands Integumentary: skin free from rashes, lesions, abrasions Vascular: pulses palpable and symmetrical in upper and lower extremities bilaterally LABORATORY DATA: CBC: White blood cells 6.4, hemoglobin and hematocrit 14.2/43.0, platelets 276 Chemistry: Sodium 142, potassium 3.7, chloride 105, carbon dioxide 29, BUN 7, creatinine 0.52, glucose 74, calcium 9.4 Liver profile: AST 18, ALT 29, alkaline phosphatase 170, total protein 8.2, albumin 4.0, total bilirubin 0.4 Prolactin pending HCG negative Urine analysis: Color yellow, appearance clear, pH 6.0, specific gravity 1.017, trace ketones, 0.2 urobilinogen, 3 white blood cells, 3 red blood cells, 1 squamous epithelial cell. Negative for all of the following: Protein, glucose, blood, nitrites, bilirubin, leukocyte esterase, bacteria Urine toxicology: Positive for opiates and amphetamines. Negative for methadone , barbiturates, tricyclics, benzodiazepines, cocaine, cannabinoids Ethanol level <0.003 MICROBOIOLOGY: Urine culture pending ELECTROCARDIOGRAM: Sinus bradycardia at rate of 54 bpm RADIOLOGY: Head CT: Normal noncontrast head CT Chest CT: No acute cardiopulmonary process ASSESSMENT: Patient is a 25-year-old female with reported five-day history of seizures. Patient will require admission for further evaluation and monitoring. PLAN: #1: Reported seizures: Admit patient to PCU under care of Dr. Shahid. Order has been placed for MRI of brain, EEG. Order placed for Ativan 1 mg IV every 2 hours when necessary for seizures #2: Anxiety: Patient reportedly takes clonazepam 2 mg by mouth 3 times a day as needed. Patient's tox screen was negative for benzodiazepines. I-stop was reviewed, patient has been getting clonazepam monthly and having prescription refilled monthly. High suspicion for medication diversion. Order placed for home dose of Prozac 20 mg by mouth daily #3: Chronic back and neck pain: Due to patient's decreased level of alertness we will hold home opiates. Medication can be reevaluated when patient is more alert. Order placed for home dose of Lyrica 200 mg by mouth 3 times a day #4: ADHD: Order placed for home dose of Adderall 20 mg by mouth twice a day #5: History of gastric bypass: Orders placed for home vitamin B12 1000 mcg by mouth twice a day, ferrous sulfate 325 mg by mouth twice a day, multivitamin 1 tablet by mouth daily, vitamin D 1000 units by mouth daily #6: History of drug abuse: Order placed for PFS consult #7: DVT prophylaxis: Order placed for Lovenox 40 mg subcutaneously daily My preceptor for this patient encounter was physically present in the building during the encounter and was fully available. As needed, all aspects of the patient interview, examination, medical decision making process, and medical care plan development were reviewed and approved by the preceptor. Preceptor is aware and concurs with the plan as stated in the body of this note and will attest to such by his/her cosignature. Vital Signs Temperature 95.0, pulse 74, respiratory rate 18, blood pressure 132/77, pulse ox 100% on room air Home Medications Scheduled Amphetamine/Dextroamphetamine (Adderall 5 mg) 1 Tab Tab 20 MG PO BID Cholecalciferol (Vitamin D3) 1,000 Unit Tab 1,000 UNIT PO DAILY Clonazepam (Clonazepam) 1 Mg Tab 1 MG PO TID Cyanocobalamin (Vitamin B12) 1,000 Mcg Tab 1,000 MCG PO BID Ferrous Sulfate (Ferrous Sulfate) 325 Mg Tab 325 MG PO BID Fluoxetine Hcl (Fluoxetine) 20 Mg Cap 20 MG PO DAILY Multivitamins *[facility] STOCKED* (Thera M Plus *[facility] STOCKED*) 1 Tab Tab 1 TAB PO DAILY Pregabalin (Lyrica) 200 Mg Cap 200 MG PO TID Scheduled PRN Oxycodone Hcl (Oxycodone HCl) 15 Mg Tab 15 MG PO TID PRN PRN PAIN Zolpidem Tartrate (Ambien) 10 Mg Tab 10 MG PO QHS PRN PRN SLEEP Allergies Coded Allergies: No Known Drug Allergy (Verified Allergy, Unknown, 09/21/12) PAMELA BEAULIEU DO Aug 10, 2016 19:14
--- NOTE | 2016-08-10 19:50 | REPUSA ---
CLINICAL HISTORY: Seizure. TECHNIQUE: MRI of the brain was performed without administration of intravenous contrast material. T1 spine echo, T2 fast spin echo and FLAIR sequences were obtained in sagittal, axial and coronal plane s. FINDINGS: The sella and parasellar regions are unremarkable in appearance. The corpus callosum and cerebellar t onsils are of normal configuration and position. There are no intra or extra-axial collections. There is no mass effect or midline shift. There is no evidence of hematoma formation. There is no hydrocep halus. The brain stem shows no mass effects, infarcts or hemorrhage. There are no cerebellopontine tumors. T he acoustic nerves are symmetrical. No cerebellar intra-axial pathology delineated. The fourth ventri bo and aqueduct are normal. No abnormalities of the optic nerves are identified. There is no evidenc e of atrophic or degenerative changes. No dural or subdural masses or collections are detected. The visualized arterial structures demonstrate normal appearing flow voids. The VII and VIII nerve bu ndles are visualized and are unremarkable in appearance. There are no suspicious signal abnormalities within the infra or supratentorial space. Mucosal thickening is seen involving bilateral ethmoid and maxillary sinuses compatible with chronic sinusitis. IMPRESSION: Chronic ethmoid and maxillary sinusitis, otherwise normal MRI of the brain. Thank you for your kind referral of this patient.
--- NOTE | 2016-08-10 20:32 | EDDOCDS ---
Physician Documentation [facility] Name: Ashwini Linda Age: 25 yrs Sex: Female : 1990 Arrival Date: 08/10/2016 Time: 14:11 Bed 18 Private MD: Disposition: 08/10/16 17:26 Hospitalization ordered by Shelbi Velez for Inpatient Admission. Preliminary diagnosis is Syncope and collapse - Versus Reported Seizures. - Bed requested for M ICU. - Status is Inpatient Admission. ms2 - Condition is Stable. - Problem is new. - Symptoms are unchanged. Historical: - Allergies: no known allergies; - Home Meds: 1. oxycodone 15 mg Oral tab 1 tab tid (Last dose: 08/10/2016 10:30) 2. Lyrica 200 mg Oral 3 times per day (Last dose: 08/10/2016 10:30) 3. clonazepam 2 mg oral tab 3 times per day (Last dose: 08/10/2016 10:30) 4. Paxil 20 mg Oral tab 1 tab once daily (Last dose: 08/09/2016) 5. Ambien Unknown Oral once daily - PMHx: Anxiety; Asthma; Chronic Back pain; perforated stomach ulcer; - PSHx: Gastric Bypass; right ankle surgery; Tonsillectomy; Gall Bladder Removal; stomach surgery; - Social history: Smoking status: Patient uses tobacco products, current every day smoker. No barriers to communication noted, The patient speaks fluent Montserratian. - Family history: Not pertinent. - : The pt / caregiver states he / she is not on anticoagulants. Home medication list is obtained from the patient. - Exposure Risk Screening:: None identified. Vital Signs: 08/10 14:23 BP 132 / 77 (auto/); ms2 14:23 Pulse 64 MON; Resp 20 S; Pulse Ox 99% ; ms2 14:25 BP 132 / 77; Pulse 74; Resp 18; Temp 95.0(O); Pulse Ox 100% on R/A; Weight 70.31 kg / rn1 155.01 lbs (R); Height 6 ft. 0 in. (182.88 cm) (R); Pain 7/10; 14:55 BP 125 / 86 (auto/); ms2 14:55 Pulse 50 MON; Resp 20 S; Pulse Ox 100% ; ms2 15:10 BP 116 / 78 (auto/); ms2 15:10 Pulse 52 MON; Resp 20 S; Pulse Ox 100% ; ms2 15:47 BP 118 / 77 (auto/); ms2 15:48 Pulse 60 MON; Resp 20 S; Pulse Ox 98% ; ms2 16:10 BP 140 / 89 (auto/); ms2 16:11 Pulse 66 MON; Resp 20 S; Pulse Ox 92% ; ms2 16:12 Pulse 46 MON; Resp 20 S; Pulse Ox 100% ; ms2 16:40 BP 117 / 77 (auto/); ms2 16:40 Pulse 54 MON; Resp 20 S; Pulse Ox 100% ; ms2 16:55 BP 114 / 73 (auto/); ms2 16:55 Pulse 54 MON; Resp 20 S; Pulse Ox 100% ; ms2 17:24 BP 115 / 84 (auto/); ms2 17:24 Pulse 50 MON; Resp 20 S; Pulse Ox 95% ; ms2 17:25 BP 117 / 78 (auto/); ms2 17:25 Pulse 50 MON; Resp 20 S; Pulse Ox 95% ; ms2 17:40 BP 138 / 81 (auto/); ms2 17:40 Pulse 58 MON; Resp 20 S; Pulse Ox 100% ; ms2 17:46 Pulse 48 MON; Resp 20 S; Pulse Ox 100% ; ms2 17:55 BP 124 / 73 (auto/); ms2 17:55 Pulse 56 MON; Resp 20 S; Pulse Ox 100% ; ms2 18:10 BP 118 / 79 (auto/); ms2 18:10 Pulse 68 MON; Resp 20 S; Pulse Ox 93% ; ms2 19:40 BP 129 / 83; Pulse 53; Resp 20 S; Temp 98.7(TE); Pulse Ox 98% ; ms2 20:20 BP 105 / 64 Supine; Pulse 66; Resp 20 S; Pulse Ox 96% on R/A; ms2 20:20 BP 101 / 55 Sitting; Pulse 83; Resp 20 S; ms2 20:20 BP 99 / 58 Standing; Pulse 80; Resp 20 S; Pulse Ox 96% on R/A; ms2 14:25 Body Mass Index 21.02 (70.31 kg, 182.88 cm) rn1 20:20 not symptomatic ms2 MDM: 14:36 IV Saline Lock ordered. br1 14:37 CBC with Diff Ordered. EDMS 14:37 BMP Ordered. EDMS 14:37 Liver Profile Ordered. EDMS 14:38 [employer] Trans[employer] Attorney/Pulse Ox/q 30 min VS ordered. br1 14:38 Orthostatic VS ordered. br1 14:38 Prolactin Ordered. EDMS 14:39 Seizure Precautions ordered. br1 14:39 NS 0.9% 1000 ml IV at 150 mL/hr continuous ordered. br1 14:39 ECG WITH READING ER PHYS+CARDIAG ordered. EDMS 14:39 HCG,Serum Qualitative Ordered. EDMS 14:41 Chest, 2 View (pa\E\lat) Ordered. EDMS 14:41 CT Head Without Contrast Ordered. EDMS 14:41 Urinalysis Ordered. EDMS 14:41 Urine Culture Ordered. EDMS 14:41 Urine Toxicology Ordered. EDMS 14:45 ETHYL ALCOHOL (ETHANOL) Ordered. EDMS 15:05 Financial registration complete. [id number] 15:20 [facility] Payment Agreement was scanned into [employer] and attached to record. [id number] 15:34 BMP Reviewed. br1 15:34 Liver Profile Reviewed. br1 15:34 CBC with Diff Reviewed. br1 15:34 HCG,Serum Qualitative Reviewed. br1 15:34 ETHYL ALCOHOL (ETHANOL) Reviewed. br1 17:15 MRI Screening Tool - Place on chart, inform RN ordered. br1 17:16 -MRI-Brain without Ordered. EDMS 17:24 BED REQUEST+ADM ordered. EDMS 18:12 MRI Screening Tool - Place on chart, inform RN complete. deg 18:13 Urinalysis Reviewed. br1 18:13 Urine Toxicology Reviewed. br1 18:13 Chest, 2 View (pa\E\lat) Reviewed. br1 18:13 CT Head Without Contrast Reviewed. br1 18:16 Admission / Observation Status ordered. EDMS 18:43 REGULAR DIET ordered. EDMS 18:47 Written Provider Order was scanned into [employer] and attached to record. deg 18:57 LORazepam 1 mg IVP once ordered. jjr 19:31 CBC WITH DIFFERENTIAL Ordered. EDMS 19:31 BASIC METABOLIC PROFILE Ordered. EDMS Administered Medications: 14:47 Drug: NS 0.9% 1000 ml [sodium chloride 0.9 % intravenous solution] Route: IV; Rate: 150 ms2 mL/hr; Site: right antecubital; 18:57 Drug: LORazepam 1 mg [lorazepam 2 mg/mL injection solution (0.5 mL)] Route: IVP; Site: jjr right antecubital; Signatures: Dispatcher [employer] EDMS Aguillon, Silvia, Cosmetologist Unit deg Navin Stanton RN RN ms2 Paul Hanks RN RN dy Willy Tillman MD MD br1 Meredith Mccracken RN RN jjr Sorenson, Kimberly, Reg Reg [email or web address] The chart was reviewed and I authenticate all verbal orders and agree with the evaluation and treatment provided.Corrections: (The following items were deleted from the chart) 14:45 14:42 ETHYL ALCOHOL (ETHANOL)+LAB ordered. EDMS EDMS 18:43 18:17 OTHER CUSTOM DIETS ordered. EDMS EDMS Attachments: 15:20 [facility] Payment Agreement [email or web address] 18:47 Written Provider Order deg MTDD
--- NOTE | 2016-08-10 20:32 | EDDOCDS ---
Nurse's Notes [facility] Name: Emil Bull Age: 25 yrs Sex: Female : 1990 Arrival Date: 08/10/2016 Time: 14:11 Bed 18 Private MD: Diagnosis: Syncope and collapse-Versus Reported Seizures Presentation: 08/10 14:17 Presenting complaint: Presenting complaint: EMS states: call dispatched as seizure, pt jjr in recliner upon EMS arrival no postictal s/s, pt lethargic to this copywriter and cries suddenly FSBS 99. 14:22 Adult Sepsis Screening: Patient has new or worsening altered mentation (1 point). jjr Patient's respiratory rate is less than 22. Systolic blood pressure is greater than 100. Patient has a qSOFA score of 1- Negative Sepsis Screen. Status: Patient is not a pharmacy services representative or dependent. Transition of care: patient was not received from another setting of care. 14:22 Acuity: TANMAY Level 3 j 14:22 Method Of Arrival: Ambulance jjr 19:43 Suicide/Homicide risk assessment- the patient denies having any suicidal and/or ms2 homicidal ideations and does not present with any other emotional, behavioral or mental health complaints. Triage Assessment: 14:29 General: Appears slender, Behavior is crying, drowsy. Pain: Location: forehead and jjr back. HIV screening NA for this visit Offered previously. Neurological: Level of Consciousness is lethargic, obeys commands. Respiratory: Airway is patent Respiratory effort is even, unlabored, Respiratory pattern is regular. Derm: Skin is dry, Skin is normal, Skin temperature is cool. Historical: - Allergies: no known allergies; - Home Meds: 1. oxycodone 15 mg Oral tab 1 tab tid (Last dose: 08/10/2016 10:30) 2. Lyrica 200 mg Oral 3 times per day (Last dose: 08/10/2016 10:30) 3. clonazepam 2 mg oral tab 3 times per day (Last dose: 08/10/2016 10:30) 4. Paxil 20 mg Oral tab 1 tab once daily (Last dose: 08/09/2016) 5. Ambien Unknown Oral once daily - PMHx: Anxiety; Asthma; Chronic Back pain; perforated stomach ulcer; - PSHx: Gastric Bypass; right ankle surgery; Tonsillectomy; Gall Bladder Removal; stomach surgery; - Social history: Smoking status: Patient uses tobacco products, current every day smoker. No barriers to communication noted, The patient speaks fluent Georgian. - Family history: Not pertinent. - : The pt / caregiver states he / she is not on anticoagulants. Home medication list is obtained from the patient. - Exposure Risk Screening:: None identified. Screenin:16 Screening information is obtained from prior medical records. Fall risk: At risk due to ms2 apparent chemical impairment. Assistance ADL's: requires no assistance with activities of daily living. Abuse/DV Screen: The patient / caregiver reports he/she is: not in a situation that causes fear, pain or injury. Nutritional screening: No deficits noted. Advance Directives: Currently, there is no health care proxy. There is no active DNR order. There is no living will. There is no Power of In File Operator. Advance directive information has not previously been placed in an [facility] medical record. Further advance directive information is declined. home support is adequate. Assessment: 15:03 General: pt lethargic -periods of apnea with 02 sat droppong to 74% 02 at 3 l applied ms2 with sat increasing to 100% --pt stimulated to wake up by sterna rub --awakens immediately------dr hall made aware--no further orders at this time.. Neurological: Level of Consciousness is alert, lethargic, obeys commands, speech slurred --cries easily and laughs at other times. Cardiovascular: Rhythm is sinus bradycardia No ectopy. Respiratory: Airway is patent Respiratory effort is even, unlabored, Respiratory pattern is regular, symmetrical, periods of apnea --pt stimulated by rubbing chest /moving feet---dr hall aware of this. GI: Abdomen is flat, non- distended. Derm: Skin is pink, warm & dry. Musculoskeletal: Range of motion intact in all extremities. 15:17 General: pt states wants something for headache ---old eccymosis noted to left frontal ms2 area. Neurological: Level of Consciousness is lethargic, obeys commands, Pupils are PERRLA, pinpoint. Derm: Skin is pink, warm & dry. 15:49 Adult Sepsis Screening: The patient does not have new or worsening altered mentation. ms2 Patient's respiratory rate is less than 22. Systolic blood pressure is greater than 100. Patient has a qSOFA score of 0- Negative Sepsis Screen. General: Appears unchanged. Behavior is cooperative, pt attempt to demand to drink or wants to have a cigarette or states and if not pt starts to become belligerent or starts to cry. Neurological: Level of Consciousness is lethargic, obeys commands. Cardiovascular: Rhythm is sinus rhythm. Respiratory: No deficits noted. Derm: Skin is pink, warm & dry. Musculoskeletal: Range of motion intact in all extremities. 16:12 General: Appears up to commode to void --pt unable at this time---pt more concerned ms2 with family being able to do whatever is asked of them by pt to take on or off flip/flops or letting her get slacks down to void or then wanting to it by herself--bellegerent. Neurological: Level of Consciousness is lethargic, obeys commands. Cardiovascular: Rhythm is sinus rhythm. Respiratory: No deficits noted. Derm: Skin is pink, warm & dry. Musculoskeletal: Range of motion intact in all extremities. 16:14 General: pt back in bed eyes closed and resting then pt suddenly sits up states she has ms2 had a seizure and copywriter is trying to put something in her nos (-copywriter replacing 02 cannula prior to pt sitting up and staring). 17:40 General: Appears in no apparent distress, Behavior is cooperative, hospitalist in ms2 seeing pt. Neurological: Level of Consciousness is lethargic, obeys commands. Cardiovascular: Rhythm is sinus bradycardia No ectopy. Respiratory: No deficits noted. Derm: Skin is pink, warm & dry. Musculoskeletal: Range of motion intact in all extremities. 18:57 General: to 1945 pt in MRI. ms2 19:47 General: Appears in no apparent distress, drowsy--medicated in MRI . Behavior is ms2 sleepy. Neurological: Level of Consciousness is drowsy but responds. Cardiovascular: Rhythm is sinus bradycardia No ectopy. Respiratory: No deficits noted. Airway is patent Respiratory effort is even, unlabored, Respiratory pattern is regular, symmetrical. GI: No deficits noted. Derm: Skin is pink, warm & dry. Musculoskeletal: Range of motion intact in all extremities. 20:20 General: Appears in no apparent distress, Behavior is cooperative. Neurological: Level ms2 of Consciousness is awake, tired /groggy. Cardiovascular: Rhythm is sinus rhythm No ectopy. Respiratory: No deficits noted. Airway is patent Respiratory effort is even, unlabored, Respiratory pattern is regular, symmetrical. Derm: Skin is pink, warm & dry. Musculoskeletal: Range of motion intact in all extremities. Vital Signs: 14:23 BP 132 / 77 (auto/); ms2 14:23 Pulse 64 MON; Resp 20 S; Pulse Ox 99% ; ms2 14:25 BP 132 / 77; Pulse 74; Resp 18; Temp 95.0(O); Pulse Ox 100% on R/A; Weight 70.31 kg rn1 (R); Height 6 ft. 0 in. (182.88 cm) (R); Pain 7/10; 14:55 BP 125 / 86 (auto/); ms2 14:55 Pulse 50 MON; Resp 20 S; Pulse Ox 100% ; ms2 15:10 BP 116 / 78 (auto/); ms2 15:10 Pulse 52 MON; Resp 20 S; Pulse Ox 100% ; ms2 15:47 BP 118 / 77 (auto/); ms2 15:48 Pulse 60 MON; Resp 20 S; Pulse Ox 98% ; ms2 16:10 BP 140 / 89 (auto/); ms2 16:11 Pulse 66 MON; Resp 20 S; Pulse Ox 92% ; ms2 16:12 Pulse 46 MON; Resp 20 S; Pulse Ox 100% ; ms2 16:40 BP 117 / 77 (auto/); ms2 16:40 Pulse 54 MON; Resp 20 S; Pulse Ox 100% ; ms2 16:55 BP 114 / 73 (auto/); ms2 16:55 Pulse 54 MON; Resp 20 S; Pulse Ox 100% ; ms2 17:24 BP 115 / 84 (auto/); ms2 17:24 Pulse 50 MON; Resp 20 S; Pulse Ox 95% ; ms2 17:25 BP 117 / 78 (auto/); ms2 17:25 Pulse 50 MON; Resp 20 S; Pulse Ox 95% ; ms2 17:40 BP 138 / 81 (auto/); ms2 17:40 Pulse 58 MON; Resp 20 S; Pulse Ox 100% ; ms2 17:46 Pulse 48 MON; Resp 20 S; Pulse Ox 100% ; ms2 17:55 BP 124 / 73 (auto/); ms2 17:55 Pulse 56 MON; Resp 20 S; Pulse Ox 100% ; ms2 18:10 BP 118 / 79 (auto/); ms2 18:10 Pulse 68 MON; Resp 20 S; Pulse Ox 93% ; ms2 19:40 BP 129 / 83; Pulse 53; Resp 20 S; Temp 98.7(TE); Pulse Ox 98% ; ms2 20:20 BP 105 / 64 Supine; Pulse 66; Resp 20 S; Pulse Ox 96% on R/A; ms2 20:20 BP 101 / 55 Sitting; Pulse 83; Resp 20 S; ms2 20:20 BP 99 / 58 Standing; Pulse 80; Resp 20 S; Pulse Ox 96% on R/A; ms2 14:25 Body Mass Index 21.02 (70.31 kg, 182.88 cm) rn1 20:20 not symptomatic ms2 Vitals: 14:30 Log In Time N/A - ambulance arrival. jjr ED Course: 14:12 Patient visited by Silvia Aguillon, Internal Control Consultant. deg 14:12 Navin Stanton,DAVID is Primary Nurse. deg 14:12 Patient moved to Waiting deg 14:12 Patient moved to 18 deg 14:23 Joshua Hall MD is Attending Physician. br1 14:23 Triage Initiated jjr 14:35 Inserted saline lock: 20 gauge in right antecubital area The patient tolerated the ms2 procedure well. No procedures done that require assistance. O2 via nasal cannula \T\ 2L/min. 14:36 Patient visited by Joshua Hall MD. br1 14:40 CBC with Diff Sent. ttb 14:40 BMP Sent. ttb 14:40 Liver Profile Sent. ttb 14:40 Prolactin Sent. ttb 14:41 Patient visited by Navin Stanton RN. ms2 14:42 HCG,Serum Qualitative Sent. ttb 14:53 Patient visited by Tyrle Nava PCA. jrd 14:58 ETHYL ALCOHOL (ETHANOL) Sent. ms2 15:09 The patient / caregiver is instructed regarding the plan of care and ED course. ms2 Accompanied by Family Member, Patient has correct armband on for positive identification. Placed in gown. Bed in low position. Call light in reach. Side rails up X2. Adult w/ patient. Seizure precautions initiated. patient monitor on. Pulse ox on. NIBP on. 15:18 IV is patent, is intact, is free of redness or swelling. solution is infusing as ms2 ordered. 15:20 [facility] Payment Agreement was scanned into [employer] and attached to record. [id number] 15:49 Patient visited by Navin Stanton RN. ms2 15:49 CT Head Without Contrast Returned. EDMS 16:19 The patient / caregiver is instructed regarding the plan of care and ED course. Bed in ms2 low position. Call light in reach. Side rails up X2. Adult w/ patient. Seizure precautions initiated. patient monitor on. Pulse ox on. NIBP on. 16:19 IV is patent, is intact, is free of redness or swelling. solution is infusing as ms2 ordered. 16:31 Chest, 2 View (pa\E\lat) Returned. EDMS 17:25 Patient visited by Navin Stanton RN. ms2 17:26 Shelbi Velez is Hospitalizing Provider. br1 17:26 Urine Toxicology Sent. ms2 17:26 Urine Culture Sent. ms2 17:26 Urinalysis Sent. ms2 17:40 The patient / caregiver is instructed regarding the plan of care and ED course. Cardiac ms2 monitor on. Pulse ox on. NIBP on. 17:40 IV is patent, is intact, is free of redness or swelling. solution is infusing as ms2 ordered. O2 via nasal cannula off pt presently--staying more awake --hospitalist in seeing pt. 18:38 EKG-ADULT Returned. EDMS 18:47 Written Provider Order was scanned into [employer] and attached to record. deg 19:41 Patient visited by Navin Stanton RN. ms2 19:47 Patient visited by Navin Stanton RN. ms2 19:49 The patient / caregiver is instructed regarding the plan of care and ED course. Cardiac ms2 monitor on. Pulse ox on. NIBP on. 19:49 IV is patent, is intact, is free of redness or swelling. solution is infusing as ms2 ordered. 19:53 The patient / caregiver is instructed regarding the plan of care and ED course. Diet: ms2 Patient given regular meal. Diet: pt happy with being able to eat. 20:11 Report given to david Mcelroy ---ICu. ms2 20:11 -MRI-Brain without Returned. EDMS 20:20 Patient visited by Navin Stanton RN. ms2 20:22 Diet: tolerated fair-50%. ms2 20:24 The patient / caregiver is instructed regarding the plan of care and ED course. Cardiac ms2 monitor on. Pulse ox on. NIBP on. 20:24 IV is patent, is intact, is free of redness or swelling. solution is infusing as ms2 ordered. pt frequently bends right arm upward . Administered Medications: 14:47 Drug: NS 0.9% 1000 ml [sodium chloride 0.9 % intravenous solution] Route: IV; Rate: 150 ms2 mL/hr; Site: right antecubital; 18:57 Drug: LORazepam 1 mg [lorazepam 2 mg/mL injection solution (0.5 mL)] Route: IVP; Site: jjr right antecubital; Intake: 20:23 PO: 148.00ml (Milk); IV: 225.00ml (NS); Total: 373.00ml. ms2 Output: 20:23 Urine: 80.00ml (Straight Cath); Total: 80.00ml. ms2 Order Results: Lab Order: CBC with Diff; SPEC'M 08/10/16 14:33 Test: WHITE BLOOD COUNT; Value: 6.4; Range: 4.0-10.0; Units: K/mm3; Status: F Test: RED BLOOD COUNT; Value: 4.73; Range: 4.00-5.40; Units: M/mm3; Status: F Test: HEMOGLOBIN; Value: 14.2; Range: 12.0-16.0; Units: g/dl; Status: F Test: HEMATOCRIT; Value: 43.0; Range: 36.0-47.0; Units: %; Status: F Test: MEAN CORPUSCULAR VOLUME; Value: 90.9; Range: 80.0-96.0; Units: fl; Status: F Test: MEAN CORPUSCULAR HEMOGLOBIN; Value: 30.0; Range: 27.0-33.0; Units: pg; Status: F Test: MEAN CORPUSCULAR HGB CONC; Value: 33.0; Range: 32.0-36.5; Units: g/dl; Status: F Test: RED CELL DISTRIBUTION WIDTH; Value: 12.8; Range: 11.5-14.5; Units: %; Status: F Test: PLATELET COUNT, AUTOMATED; Value: 276; Range: 150-450; Units: k/mm3; Status: F Test: NEUTROPHILS %; Value: 50.8; Range: 36.0-66.0; Units: %; Status: F Test: LYMPH %; Value: 39.8; Range: 24.0-44.0; Units: %; Status: F Test: MONO %; Value: 4.4; Range: 0.0-5.0; Units: %; Status: F Test: EOS %; Value: 2.8; Range: 0.0-3.0; Units: %; Status: F Test: BASO %; Value: 0.4; Range: 0.0-1.0; Units: %; Status: F Test: LARGE UNSTAINED CELL %; Value: 1.8; Range: 0.0-4.0; Units: %; Status: F Test: NEUTROPHILS #; Value: 3.3; Range: 1.8-7.7; Units: K/mm3; Status: F Test: LYMPH #; Value: 2.6; Range: 1.5-6.5; Units: K/mm3; Status: F Test: MONO #; Value: 0.3; Range: 0.0-0.8; Units: K/mm3; Status: F Test: EOS #; Value: 0.2; Range: 0.0-0.50; Units: K/mm3; Status: F Test: BASO #; Value: 0.0; Range: 0.0-0.2; Units: K/mm3; Status: F Test: LARGE UNSTAINED CELL #; Value: 0.1; Range: 0.0-0.4; Units: K/mm3; Status: F Lab Order: [facility]; SPEC'M 08/10/16 14:33 Test: GLUCOSE, FASTING; Value: 74; Range: 70-105; Units: MG/DL; Status: F Test: BLOOD UREA NITROGEN; Value: 11; Range: 7-18; Units: MG/DL; Status: F Test: CREATININE FOR GFR; Value: 0.52; Range: 0.55-1.02; Abnormal: Below low normal; Units: MG/DL; Status: F Test: GLOMERULAR FILTRATION RATE; Value: > 60.0; Range: >60; Status: F Test: SODIUM LEVEL; Value: 142; Range: 136-145; Units: MEQ/L; Status: F Test: POTASSIUM SERUM; Value: 3.7; Range: 3.5-5.1; Units: MEQ/L; Status: F Test: CHLORIDE LEVEL; Value: 105; Range: 98-107; Units: MEQ/L; Status: F Test: CARBON DIOXIDE LEVEL; Value: 29; Range: 21-32; Units: MEQ/L; Status: F Test: ANION GAP; Value: 8; Range: 8-16; Units: MEQ/L; Status: F Test: CALCIUM LEVEL; Value: 9.4; Range: 8.5-10.1; Units: MG/DL; Status: F Test Note: ; Units are mL/min/1.73 m2 Chronic Kidney Disease Staging per NKF: Stage I & II GFR >=60 Normal to Mildly Decreased Stage III GFR 30-59 Moderately Decreased Stage IV GFR 15-29 Severely Decreased Stage V GFR <15 Very Little GFR Left ESRD GFR <15 on [facility] Lab Order: Liver Profile; SPEC'M 08/10/16 14:33 Test: AST/SGOT; Value: 18; Range: 15-37; Units: U/L; Status: F Test: ALT/SGPT; Value: 29; Range: 12-78; Units: U/L; Status: F Test: ALKALINE PHOSPHATASE; Value: 170; Range: 45-117; Abnormal: Above high normal; Units: U/L; Status: F Test: BILIRUBIN,TOTAL; Value: 0.4; Range: 0.2-1.0; Units: MG/DL; Status: F Test: BILIRUBIN,DIRECT; Value: < 0.1; Range: 0.0-0.2; Units: MG/DL; Status: F Test: TOTAL PROTEIN; Value: 8.2; Range: 6.4-8.2; Units: GM/DL; Status: F Test: ALBUMIN; Value: 4.0; Range: 3.2-5.2; Units: GM/DL; Status: F Test: ALBUMIN/GLOBULIN RATIO; Value: 0.95; Range: 1.00-1.93; Abnormal: Below low normal; Status: F Lab Order: HCG,Serum Qualitative; SPEC'M 08/10/16 14:33 Test: HCG, SERUM QUALITATIVE; Value: NEGATIVE; Range: NEGATIVE; Status: F Lab Order: Urinalysis; SPEC'M 08/10/16 17:20 Test: APPEARANCE, URINE; Value: CLEAR; Range: CLEAR; Status: F Test: COLOR, URINE; Value: YELLOW; Range: YELLOW; Status: F Test: PH,URINE; Value: 6.0; Range: 5.0-9.0; Units: UNITS; Status: F Test: SPECIFIC GRAVITY URINE AUTO; Value: 1.017; Range: 1.002-1.035; Status: F Test: PROTEIN, URINE AUTO; Value: NEGATIVE; Range: NEGATIVE; Units: mg/dL; Status: F Test: GLUCOSE, URINE (UA) AUTO; Value: NEGATIVE; Range: NEGATIVE; Units: mg/dL; Status: F Test: KETONE, URINE AUTO; Value: TRACE; Range: NEGATIVE; Abnormal: Above high normal; Units: mg/dL; Status: F Test: UROBILINOGEN, URINE AUTO; Value: 0.2; Range: 0.0-2.0; Units: mg/dL; Status: F Test: BILIRUBIN, URINE AUTO; Value: NEGATIVE; Range: NEGATIVE; Status: F Test: NITRITE, URINE AUTO; Value: NEGATIVE; Range: NEGATIVE; Status: F Test: LEUKOCYTE ESTERASE, URINE AUTO; Value: NEGATIVE; Range: NEGATIVE; Status: F Test: BLOOD, URINE BLOOD; Value: NEGATIVE; Range: NEGATIVE; Status: F Test: WBC, URINE AUTO; Value: 3; Range: 0-3; Units: /HPF; Status: F Test: RBC, URINE AUTO; Value: 3; Range: 0-3; Units: /HPF; Status: F Test: BACTERIA, URINE AUTO; Value: NEGATIVE; Range: NEGATIVE; Status: F Test: SQUAMOUS EPITHELIAL CELL UR AU; Value: 1; Range: 0-6; Units: /HPF; Status: F Test: MUCUS, URINE; Value: SMALL; Range: NEGATIVE; Status: F Test: HYALINE CAST, URINE AUTO; Value: 0; Range: 0-1; Units: /LPF; Status: F Lab Order: Urine Toxicology; SPEC'M 08/10/16 17:20 Test: AMPHETAMINES LEVEL URINE; Value: POSITIVE; Range: NEGATIVE; Abnormal: Above high normal; Status: F Test: BARBITURATES URINE; Value: NEGATIVE; Range: NEGATIVE; Status: F Test: BENZODIAZEPINES URINE; Value: NEGATIVE; Range: NEGATIVE; Status: F Test: CANNABINOIDS URINE; Value: NEGATIVE; Range: NEGATIVE; Status: F Test: COCAINE METABOLITE URINE; Value: NEGATIVE; Range: NEGATIVE; Status: F Test: METHADONE URINE; Value: NEGATIVE; Range: NEGATIVE; Status: F Test: OPIATES URINE; Value: POSITIVE; Range: NEGATIVE; Abnormal: Above high normal; Status: F Test: TRICYCLIC ANTIDEPRESS URINE; Value: NEGATIVE; Range: NEGATIVE; Status: F Test Note: ; ALL PRESUMPTIVE POSITIVE FINDINGS ARE UNCONFIRMED NORMAL VALUES THRESHOLD IN NG/ML AMPHETAMINES 1000 METHAMPHETAMINES 1000 BARBITURATES 300 BENZODIAZEPINES 300 CANNABINOIDS (THC) 50 COCAINE METABOLITE 300 METHADONE 300 OPIATES 300 PHENCYCLIDINE 25 TRICYCLIC ANTIDEPRESSANTS 1000 RESULTS ARE FOR MEDICAL PURPOSES ONLY. ALL URINE SPECIMENS WILL BE SAVED FOR 3 DAYS. IF CONFIRMATION OF A PRESUMPTIVE POSTIVE SCREEN RESULT IS DESIRED, CALL CHEMISTRY ([phone]) AND REQUEST URINE TO BE SENT TO REFERENCE LAB. FOR A LIST OF CLOSELY RELATED COMPOUNDS PLEASE CALL THE LAB. Lab Order: ETHYL ALCOHOL (ETHANOL); SPEC'M 08/10/16 14:33 Test: ETHYL ALCOHOL (ETHANOL); Value: < 0.003; Range: 0.000-0.010; Units: %; Status: F Radiology Order: EKG-ADULT Test: EKG-ADULT REASON FOR EXAMINATION: dysrhythmia; Stationary ECG Study; [facility] - ED; ; Test Date: 2016-08-10; Pat Name: EMIL BULL Department:; Room: -; Gender: F Roller: ; : 1990 Requested By: JOSHUA Cowart; Order Number: [id number] Reading MD: Johnathan Torres; Measurements; Intervals [place]; Rate: 54 P: 23; OH: 152 QRS: 62; QRSD: 85 T: 61; QT: 445; QTc: 423; Interpretive Statements; SINUS BRADYCARDIA; EARLY REPOLARIZATION; SIMILAR TO 08/05/16; Electronically Signed On 08-10-2016 18:10:37 EST by Johnathan Torres; Radiology Order: Chest, 2 View (pa\E\lat) Test: Chest, 2 View (pa\E\lat) REASON FOR EXAMINATION: Syncope; Clinical: Syncope .; ; Comparison: 08/05/2016 .; ; Technique: AP and lateral.; ; Findings:; The mediastinum and cardiac silhouette are normal. The lung dodd are clear and; without acute consolidation, effusion, or pneumothorax. The skeletal structures; are intact and normal.; ; Impression:; 1. No acute cardiopulmonary process.; ; ; Signed by; Jose R Bustillos MD 08/10/2016 03:49 P; Radiology Order: CT Head Without Contrast Test: CT Head Without Contrast REASON FOR EXAMINATION: reports multiple seizures today; Clinical: Seizures .; ; Comparison: 08/05/2016 .; ; Findings:; The ventricles, sulci, and cisterns are normal in position and appearance.; Watson-white differentiation is maintained. No acute intracranial hemorrhage,; mass/mass effect, pathology or trauma/injury. No evidence for acute infarction.; No extra-axial fluid collection. Calvarium is intact. Paranasal sinuses and; mastoid air cells are clear.; ; Impression:; Normal noncontrast head CT.; No evidence for acute intracranial pathology or trauma/injury.; ; ; Signed by; Jose R Bustillos MD 08/10/2016 03:36 P; Radiology Order: -MRI-Brain without Test: -MRI-Brain without REASON FOR EXAMINATION: report of multiple seizures; ; CLINICAL HISTORY: Seizure.; TECHNIQUE: MRI of the brain was performed without administration of intravenous contrast material. T1; spine echo, T2 fast spin echo and FLAIR sequences were obtained in sagittal, axial and coronal plane; s.; FINDINGS:; The sella and parasellar regions are unremarkable in appearance. The corpus callosum and cerebellar t; onsils are of normal configuration and position. There are no intra or extra-axial collections. There; is no mass effect or midline shift. There is no evidence of hematoma formation. There is no hydrocep; halus.; The brain stem shows no mass effects, infarcts or hemorrhage. There are no cerebellopontine tumors. T; he acoustic nerves are symmetrical. No cerebellar intra-axial pathology delineated. The fourth ventri; bo and aqueduct are normal. No abnormalities of the optic nerves are identified. There is no evidenc; e of atrophic or degenerative changes. No dural or subdural masses or collections are detected.; The visualized arterial structures demonstrate normal appearing flow voids. The VII and VIII nerve bu; ndles are visualized and are unremarkable in appearance. There are no suspicious signal abnormalities; within the infra or supratentorial space.; Mucosal thickening is seen involving bilateral ethmoid and maxillary sinuses compatible with chronic; sinusitis.; IMPRESSION:; Chronic ethmoid and maxillary sinusitis, otherwise normal MRI of the brain.; Thank you for your kind referral of this patient.; ; ; Outcome: 17:26 Decision to Hospitalize by Provider. br1 19:43 Discharge Assessment: patient administered narcotics - yes. Patient was admitted to the [address] or transferred to another facility. The following High Risk Discharge criteria are identified: None. CT Study completed. MRI Study completed. 20:24 Condition: stable. Property :Personal belongings accompany Pt. ms2 20:30 Admitted to ICU accompanied by nurse, accompanied by tech, family with patient, via ms2 stretcher, on monitor, with chart. Condition: stable. 20:31 Patient left the ED. ms2 Signatures: Dispatcher [employer] EDMS Silvia Aguillon, Internal Control Consultant Unit deg Navin Stanton RN RN ms2 Joshua Hall MD MD br1 Meredith Mccracken RN RN Negin Heart RN RN ttTyrel Sharma, JUSTIN ROUNDSMAN Anthony Leblanc rn1 Francisca Diaz, Reg Reg [id number] Corrections: (The following items were deleted from the chart) 14:23 14:17 Presenting complaint: jjr jjr 14:45 14:42 ETHYL ALCOHOL (ETHANOL[place]. [facility] [place] 15:19 15:03 Neurological: Level of Consciousness is awake, alert, obeys commands, speech ms2 slurred --cries easily and laughs at other times. ms2 MTDD
[2016-08-10 20:45] VITALS: BP 107/74
[2016-08-10] MEDS ORDERED: INFLUENZA QUADRIVALENT PF VACCINE 0.5ML SYRINGE/VIAL (90686) IM SCH (20:45)
[2016-08-10] MEDS: PREGABALIN 100 MG CAP (LYRICA) PO SCH (21:15)
[2016-08-10] MEDS: FERROUS SULFATE 325MG TAB PO SCH (21:15)
[2016-08-10] MEDS: CYANOCOBALAMIN 500 MCG TAB PO SCH (21:15)
[2016-08-11] VITALS: BP 108/60
[2016-08-11 04:00] VITALS: BP 107/72
[2016-08-11] MEDS: NS 1,000 ML IV SCH ×2 (04:20→14:20)
[2016-08-11 04:37] LABS: BASO % 0.4 % (0.0-1.0); EOS # 0.2 K/mm3 (0.0-0.50); EOS % 3.4 % (0.0-3.0); LARGE UNSTAINED CELL # 0.1 K/mm3 (0.0-0.4); LARGE UNSTAINED CELL % 1.9 % (0.0-4.0); LYMPH # 2.4 K/mm3 (1.5-6.5); LYMPH % 46.6 % (24.0-44.0); MEAN CORPUSCULAR HEMOGLOBIN 30.8 pg (27.0-33.0); MEAN CORPUSCULAR HGB CONC 33.3 g/dl (32.0-36.5); MEAN CORPUSCULAR VOLUME 92.7 fl (80.0-96.0); MONO # 0.2 K/mm3 (0.0-0.8); MONO % 3.8 % (0.0-5.0); NEUTROPHILS # 2.3 K/mm3 (1.8-7.7); NEUTROPHILS % 43.9 % (36.0-66.0); PLATELET COUNT, AUTOMATED 196 k/mm3 (150-450); RED CELL DISTRIBUTION WIDTH 12.8 % (11.5-14.5); WHITE BLOOD COUNT 5.2 K/mm3 (4.0-10.0)
[2016-08-11 04:59] LABS: ANION GAP 6 MEQ/L (8-16); BLOOD UREA NITROGEN 8 MG/DL (7-18); CALCIUM LEVEL 8.4 MG/DL (8.5-10.1); CARBON DIOXIDE LEVEL 28 MEQ/L (21-32); CHLORIDE LEVEL 111 MEQ/L (98-107); CREATININE FOR GFR 0.37 MG/DL (0.55-1.02); GLOMERULAR FILTRATION RATE > 60.0 (>60); GLUCOSE, FASTING 68 MG/DL (70-105); POTASSIUM SERUM 3.5 MEQ/L (3.5-5.1); SODIUM LEVEL 145 MEQ/L (136-145)
[2016-08-11 08:00] VITALS: BP 115/78
[2016-08-11] MEDS: ADDERALL 5 MG TAB PO SCH ×2 (08:26→15:55)
[2016-08-11] MEDS: FLUoxetine 20 MG CAP PO SCH (08:26)
[2016-08-11] MEDS: FERROUS SULFATE 325MG TAB PO SCH ×2 (08:26→20:30)
[2016-08-11] MEDS: VITAMIN D 1,000 INTERNATIONAL UNITS TABLET PO SCH (08:26)
[2016-08-11] MEDS: CYANOCOBALAMIN 500 MCG TAB PO SCH ×2 (08:26→20:30)
[2016-08-11] MEDS: MULTIVITAMINS/MINERALS THERAP 1 TAB PO SCH (08:27)
[2016-08-11] MEDS: ENOXAPARIN 40 MG/0.4 ML SYRINGE (J1650) SC SCH (08:27)
[2016-08-11] MEDS: PREGABALIN 100 MG CAP (LYRICA) PO SCH ×3 (08:27→20:30)
[2016-08-11 12:00] VITALS: BP 109/62
[2016-08-11] MEDS ORDERED: oxyCODONE 5MG TAB PO PRN (13:00)
--- NOTE | 2016-08-11 13:14 | IPNPDOC ---
Text Note Date of Service The patient was seen on 08/11/16. NOTE Subjective: Pt states that she is seizing while having a pseudoseizure- no tongue trauma/incontinence/post ictal state. Objective: Vitals: (see below) General: No acute distress, laying comfortably in bed. HEENT: Moist mucous membranes. Neck: No JVD or lymphadenopathy Cardiac: RRR, No murmurs Pulm: Clear to auscultation b/l. No wheezing, rhonchi Abd: NT/ND + BS. Ext: No edema or cyanosis Neuro: Strength 5/5 BUE and BLE. CN 2-12 intact. Negative Babinki. Sensation to fine touch intact. Labs (see below) Images: MRI Brain 08/10/16 IMPRESSION: Chronic ethmoid and maxillary sinusitis, otherwise normal MRI of the brain. CXR 08/10/16 Impression: 1. No acute cardiopulmonary process. EEG pending Assessment/Plan 1. Pseudoseizures - no tongue trauma/incontinence/post ictal state. EEG pending. Will need psych eval if EEG negative. Ativan PRN, seizure precautions. Pt was reported to be on Klonopin, however all her tox screens have always been negative for Benzos. 2. Anxiety- on Prozac 3. Chronic back/neck pain - home opiates were held as pt was very lethargic on presentation. Will restart oxycodone at a lower dose. 4. ADHD - on Adderall 5. H/o gastric bypass - cont vitamins 6. h/p drug use - PFS consult placed on admission DVT prophy: Lovenox VS,Fishbone, I+O VS, Fishbone, I+O Laboratory Tests 08/10/16 14:33 Red Blood Count 4.73, Mean Corpuscular Volume 90.9, Mean Corpuscular Hemoglobin 30.0, Mean Corpuscular Hemoglobin Concent 33.0, Red Cell Distribution Width 12.8 , Neutrophils (%) (Auto) 50.8, Lymphocytes (%) (Auto) 39.8, Monocytes (%) (Auto ) 4.4, Eosinophils (%) (Auto) 2.8, Basophils (%) (Auto) 0.4, Neutrophils # (Auto ) 3.3, Lymphocytes # (Auto) 2.6, Monocytes # (Auto) 0.3, Eosinophils # (Auto) 0.2, Basophils # (Auto) 0.0 08/11/16 04:11 Red Blood Count 4.01, Mean Corpuscular Volume 92.7, Mean Corpuscular Hemoglobin 30.8, Mean Corpuscular Hemoglobin Concent 33.3, Red Cell Distribution Width 12.8 , Neutrophils (%) (Auto) 43.9, Lymphocytes (%) (Auto) 46.6 H, Monocytes (%) ( Auto) 3.8, Eosinophils (%) (Auto) 3.4 H, Basophils (%) (Auto) 0.4, Neutrophils # (Auto) 2.3, Lymphocytes # (Auto) 2.4, Monocytes # (Auto) 0.2, Eosinophils # ( Auto) 0.2, Basophils # (Auto) 0.0, Calcium Level 8.4 L Vital Signs Date Time Temp Pulse Resp B/P Pulse Ox O2 Delivery O2 Flow Rate FiO2 08/11/16 12:00 97.1 60 14 109/62 100 Room Air I&O- Last 24 Hours up to 6 AM 08/11/16 05:59 Intake Total 940 ml Output Total 250 ml Balance 690 ml BUCK VEGA MD Aug 11, 2016 13:14
[2016-08-11 16:00] VITALS: BP 106/73
[2016-08-11] MEDS: NICOTINE 21MG/24HR 1 EA TRANSDERMAL TD SCH (16:38)
--- NOTE | 2016-08-11 18:29 | ECGEPIP ---
Stationary ECG Study [facility] Test Date: 2016-08-11 Pat Name: EMIL BULL Department: Room: [place] [address] Gender: F Paper Latcher: STEPHANIE : 1990 Requested By: BUCK VEGA Order Number: [id number] Reading MD: Kenny Yu Measurements Intervals [place] Rate: 49 P: 42 ND: 126 QRS: 57 QRSD: 100 T: 65 QT: 475 QTc: 429 Interpretive Statements SINUS BRADYCARDIA WITH EARLY REPOLARIZATION LAST EKG ON 08/10/2016 AT 14:48:01. NO SIGNIFICANT CHANGES Electronically Signed On 08-11-2016 18:29:13 EST by Kenny Yu
[2016-08-11 20:00] VITALS: BP 120/77
[2016-08-11] MEDS ORDERED: LORazepam 2 MG/ML VIAL (J2060) IV STA (20:14)
[2016-08-12] VITALS: BP 90/52
[2016-08-12] MEDS: NS 1,000 ML IV SCH ×3 (00:16→16:36)
[2016-08-12 04:00] VITALS: BP 98/55
[2016-08-12 04:44] LABS: BASO % 0.3 % (0.0-1.0); EOS # 0.1 K/mm3 (0.0-0.50); EOS % 1.9 % (0.0-3.0); LARGE UNSTAINED CELL # 0.1 K/mm3 (0.0-0.4); LYMPH # 2.1 K/mm3 (1.5-6.5); LYMPH % 32.2 % (24.0-44.0); MEAN CORPUSCULAR HEMOGLOBIN 29.7 pg (27.0-33.0); MEAN CORPUSCULAR HGB CONC 32.5 g/dl (32.0-36.5); MEAN CORPUSCULAR VOLUME 91.3 fl (80.0-96.0); MONO # 0.3 K/mm3 (0.0-0.8); MONO % 4.9 % (0.0-5.0); NEUTROPHILS # 3.9 K/mm3 (1.8-7.7); NEUTROPHILS % 58.7 % (36.0-66.0); PLATELET COUNT, AUTOMATED 240 k/mm3 (150-450); RED CELL DISTRIBUTION WIDTH 12.9 % (11.5-14.5); WHITE BLOOD COUNT 6.6 K/mm3 (4.0-10.0)
[2016-08-12 05:04] LABS: ANION GAP 7 MEQ/L (8-16); BLOOD UREA NITROGEN 5 MG/DL (7-18); CALCIUM LEVEL 7.8 MG/DL (8.5-10.1); CARBON DIOXIDE LEVEL 26 MEQ/L (21-32); CHLORIDE LEVEL 114 MEQ/L (98-107); CREATININE FOR GFR 0.38 MG/DL (0.55-1.02); GLOMERULAR FILTRATION RATE > 60.0 (>60); GLUCOSE, FASTING 63 MG/DL (70-105); SODIUM LEVEL 147 MEQ/L (136-145)
[2016-08-12 08:00] VITALS: BP 105/56
[2016-08-12] MEDS: ADDERALL 5 MG TAB PO SCH (09:31)
[2016-08-12] MEDS: NICOTINE 21MG/24HR 1 EA TRANSDERMAL TD SCH (09:31)
[2016-08-12] MEDS: ENOXAPARIN 40 MG/0.4 ML SYRINGE (J1650) SC SCH (09:31)
[2016-08-12] MEDS: FLUoxetine 20 MG CAP PO SCH (09:32)
[2016-08-12] MEDS: CYANOCOBALAMIN 500 MCG TAB PO SCH ×2 (09:32→20:10)
[2016-08-12] MEDS: FERROUS SULFATE 325MG TAB PO SCH ×2 (09:32→20:10)
[2016-08-12] MEDS: PREGABALIN 100 MG CAP (LYRICA) PO SCH ×3 (09:32→20:10)
[2016-08-12] MEDS: VITAMIN D 1,000 INTERNATIONAL UNITS TABLET PO SCH (09:32)
[2016-08-12] MEDS: MULTIVITAMINS/MINERALS THERAP 1 TAB PO SCH (09:32)
--- NOTE | 2016-08-12 13:00 | IPNPDOC ---
Text Note Date of Service The patient was seen on 08/12/16. NOTE Subjective: Feeling well. States she has been snoring crushed oxycodone and adderral for the past 6 months since she was prescribed it, as she is addicted to it. Objective: Vitals: (see below) General: No acute distress, laying comfortably in bed. HEENT: Moist mucous membranes. Neck: No JVD or lymphadenopathy Cardiac: RRR, No murmurs Pulm: Clear to auscultation b/l. No wheezing, rhonchi Abd: NT/ND + BS. Ext: No edema or cyanosis Neuro: Strength 5/5 BUE and BLE. CN 2-12 intact. Negative Babinki. Sensation to fine touch intact. Labs (see below) Images: MRI Brain 08/10/16 IMPRESSION: Chronic ethmoid and maxillary sinusitis, otherwise normal MRI of the brain. CXR 08/10/16 Impression: 1. No acute cardiopulmonary process. EEG pending Assessment/Plan 1. Pseudoseizures - no tongue trauma/incontinence/post ictal state. EEG pending. Will need psych eval if EEG negative. Ativan PRN, seizure precautions. Pt was reported to be on Klonopin, however all her tox screens have always been negative for Benzos. 2. Oxycodone/Adderall addiction - crushing and snorting- weaning off adderall. D /c both prior to d/c. 3. Anxiety- on Prozac 4. Chronic back/neck pain - home opiates were held as pt was very lethargic on presentation. Snorting oxycodone. Will not continue. 5. ADHD - on Adderall 6. H/o gastric bypass - cont vitamins DVT prophy: Lovenox Pending EEG. Awaiting EEG today, as they are not done on weekends. Will need psych eval prior to d/c. VS,Fishbone, I+O VS, Fishbone, I+O Laboratory Tests 08/12/16 04:37 Calcium Level 7.8 L, Red Blood Count 4.21, Mean Corpuscular Volume 91.3, Mean Corpuscular Hemoglobin 29.7, Mean Corpuscular Hemoglobin Concent 32.5, Red Cell Distribution Width 12.9, Neutrophils (%) (Auto) 58.7, Lymphocytes (%) (Auto) 32.2, Monocytes (%) (Auto) 4.9, Eosinophils (%) (Auto) 1.9, Basophils (%) (Auto ) 0.3, Neutrophils # (Auto) 3.9, Lymphocytes # (Auto) 2.1, Monocytes # (Auto) 0.3, Eosinophils # (Auto) 0.1, Basophils # (Auto) 0.0 Vital Signs Date Time Temp Pulse Resp B/P Pulse Ox O2 Delivery O2 Flow Rate FiO2 08/12/16 08:00 98.5 65 15 105/56 100 Room Air I&O- Last 24 Hours up to 6 AM 08/12/16 06:00 Intake Total 3600 ml Output Total 600 ml Balance 3000 ml BUCK VEGA MD Aug 12, 2016 13:00
[2016-08-12 14:00] VITALS: BP 124/63
--- NOTE | 2016-08-12 21:33 | EDDOCDS ---
Physician Documentation [facility] Name: Ashwini Linda Age: 25 yrs Sex: Female : 1990 Arrival Date: 08/10/2016 Time: 14:11 Bed 18 Private MD: Disposition: 08/10/16 17:26 Hospitalization ordered by Shelbi Velez for Inpatient Admission. Preliminary diagnosis is Syncope and collapse - Versus Reported Seizures. - Bed requested for M ICU. - Status is Inpatient Admission. ms2 - Condition is Stable. - Problem is new. - Symptoms are unchanged. Historical: - Allergies: no known allergies; - Home Meds: 1. oxycodone 15 mg Oral tab 1 tab tid (Last dose: 08/10/2016 10:30) 2. Lyrica 200 mg Oral 3 times per day (Last dose: 08/10/2016 10:30) 3. clonazepam 2 mg oral tab 3 times per day (Last dose: 08/10/2016 10:30) 4. Paxil 20 mg Oral tab 1 tab once daily (Last dose: 08/09/2016) 5. Ambien Unknown Oral once daily - PMHx: Anxiety; Asthma; Chronic Back pain; perforated stomach ulcer; - PSHx: Gastric Bypass; right ankle surgery; Tonsillectomy; Gall Bladder Removal; stomach surgery; - Social history: Smoking status: Patient uses tobacco products, current every day smoker. No barriers to communication noted, The patient speaks fluent Azerbaijani. - Family history: Not pertinent. - : The pt / caregiver states he / she is not on anticoagulants. Home medication list is obtained from the patient. - Exposure Risk Screening:: None identified. Vital Signs: 08/10 14:23 BP 132 / 77 (auto/); ms2 14:23 Pulse 64 MON; Resp 20 S; Pulse Ox 99% ; ms2 14:25 BP 132 / 77; Pulse 74; Resp 18; Temp 95.0(O); Pulse Ox 100% on R/A; Weight 70.31 kg / rn1 155.01 lbs (R); Height 6 ft. 0 in. (182.88 cm) (R); Pain 7/10; 14:55 BP 125 / 86 (auto/); ms2 14:55 Pulse 50 MON; Resp 20 S; Pulse Ox 100% ; ms2 15:10 BP 116 / 78 (auto/); ms2 15:10 Pulse 52 MON; Resp 20 S; Pulse Ox 100% ; ms2 15:47 BP 118 / 77 (auto/); ms2 15:48 Pulse 60 MON; Resp 20 S; Pulse Ox 98% ; ms2 16:10 BP 140 / 89 (auto/); ms2 16:11 Pulse 66 MON; Resp 20 S; Pulse Ox 92% ; ms2 16:12 Pulse 46 MON; Resp 20 S; Pulse Ox 100% ; ms2 16:40 BP 117 / 77 (auto/); ms2 16:40 Pulse 54 MON; Resp 20 S; Pulse Ox 100% ; ms2 16:55 BP 114 / 73 (auto/); ms2 16:55 Pulse 54 MON; Resp 20 S; Pulse Ox 100% ; ms2 17:24 BP 115 / 84 (auto/); ms2 17:24 Pulse 50 MON; Resp 20 S; Pulse Ox 95% ; ms2 17:25 BP 117 / 78 (auto/); ms2 17:25 Pulse 50 MON; Resp 20 S; Pulse Ox 95% ; ms2 17:40 BP 138 / 81 (auto/); ms2 17:40 Pulse 58 MON; Resp 20 S; Pulse Ox 100% ; ms2 17:46 Pulse 48 MON; Resp 20 S; Pulse Ox 100% ; ms2 17:55 BP 124 / 73 (auto/); ms2 17:55 Pulse 56 MON; Resp 20 S; Pulse Ox 100% ; ms2 18:10 BP 118 / 79 (auto/); ms2 18:10 Pulse 68 MON; Resp 20 S; Pulse Ox 93% ; ms2 19:40 BP 129 / 83; Pulse 53; Resp 20 S; Temp 98.7(TE); Pulse Ox 98% ; ms2 20:18 Pulse 80; Pulse Ox 96% ; ms2 20:20 BP 105 / 64 Supine; Pulse 66; Resp 20 S; Pulse Ox 96% on R/A; ms2 20:20 BP 101 / 55 Sitting; Pulse 83; Resp 20 S; ms2 20:20 BP 99 / 58 Standing; Pulse 80; Resp 20 S; Pulse Ox 96% on R/A; ms2 20:35 BP 104 / 67 (auto/); ms2 14:25 Body Mass Index 21.02 (70.31 kg, 182.88 cm) rn1 20:20 not symptomatic ms2 MDM: 14:36 IV Saline Lock ordered. br1 14:37 CBC with Diff Ordered. EDMS 14:37 BMP Ordered. EDMS 14:37 Liver Profile Ordered. EDMS 14:38 Privacy Specialist/Pulse Ox/q 30 min VS ordered. br1 14:38 Orthostatic VS ordered. br1 14:38 Prolactin Ordered. EDMS 14:39 Seizure Precautions ordered. br1 14:39 NS 0.9% 1000 ml IV at 150 mL/hr continuous ordered. br1 14:39 ECG WITH READING ER PHYS+CARDIAG ordered. EDMS 14:39 HCG,Serum Qualitative Ordered. EDMS 14:41 Chest, 2 View (pa\E\lat) Ordered. EDMS 14:41 CT Head Without Contrast Ordered. EDMS 14:41 Urinalysis Ordered. EDMS 14:41 Urine Culture Ordered. EDMS 14:41 Urine Toxicology Ordered. EDMS 14:45 ETHYL ALCOHOL (ETHANOL) Ordered. EDMS 15:05 Financial registration complete. [email or web address] 15:20 [facility] Payment Agreement was scanned into [employer] and attached to record. [email or web address] 15:34 BMP Reviewed. br1 15:34 Liver Profile Reviewed. br1 15:34 CBC with Diff Reviewed. br1 15:34 HCG,Serum Qualitative Reviewed. br1 15:34 ETHYL ALCOHOL (ETHANOL) Reviewed. br1 17:15 MRI Screening Tool - Place on chart, inform RN ordered. br1 17:16 -MRI-Brain without Ordered. EDMS 17:24 BED REQUEST+ADM ordered. EDMS 18:12 MRI Screening Tool - Place on chart, inform RN complete. deg 18:13 Urinalysis Reviewed. br1 18:13 Urine Toxicology Reviewed. br1 18:13 Chest, 2 View (pa\E\lat) Reviewed. br1 18:13 CT Head Without Contrast Reviewed. br1 18:16 Admission / Observation Status ordered. EDMS 18:43 REGULAR DIET ordered. EDMS 18:47 Written Provider Order was scanned into [employer] and attached to record. deg 18:57 LORazepam 1 mg IVP once ordered. jjr 19:31 CBC WITH DIFFERENTIAL Ordered. EDMS 19:31 BASIC METABOLIC PROFILE Ordered. EDMS 22:45 T-Sheet-- Draft Copy was scanned into [employer] and attached to record. klr 08/12 11:56 Trend VS was scanned into [employer] and attached to record. lg Administered Medications: 08/10 14:47 Drug: NS 0.9% 1000 ml [sodium chloride 0.9 % intravenous solution] Route: IV; Rate: 150 ms2 mL/hr; Site: right antecubital; 18:57 Drug: LORazepam 1 mg [lorazepam 2 mg/mL injection solution (0.5 mL)] Route: IVP; Site: jjr right antecubital; Signatures: Dispatcher [employer] EDMS Silvia Aguillon, Assembly Operator Unit deg Navin Stanton RN RN ms2 Lydia Rodriguez, Reg Reg lg Paul Hanks RN RN dy Willy Tillman MD MD br1 Meredith Mccracken RN RN jFrancisca Reynolds, Reg Reg ks16 Andreia Humphreys The chart was reviewed and I authenticate all verbal orders and agree with the evaluation and treatment provided.Corrections: (The following items were deleted from the chart) 14:45 14:42 ETHYL ALCOHOL (ETHANOL)+LAB ordered. EDMS EDMS 18:43 18:17 OTHER CUSTOM DIETS ordered. EDMS EDMS Attachments: 15:20 [facility] [place] [email or web address] 18:47 Written Provider Order deg 22:45 T-Sheet-- Draft Copy klr Chart Complete MTDD
--- NOTE | 2016-08-12 21:33 | EDDOCDS ---
Physician Documentation [facility] Name: Ashwini Linda Age: 25 yrs Sex: Female : 1990 Arrival Date: 08/10/2016 Time: 14:11 Bed 18 Private MD: Disposition: 08/10/16 17:26 Hospitalization ordered by Shelbi Velez for Inpatient Admission. Preliminary diagnosis is Syncope and collapse - Versus Reported Seizures. - Bed requested for M ICU. - Status is Inpatient Admission. ms2 - Condition is Stable. - Problem is new. - Symptoms are unchanged. Historical: - Allergies: no known allergies; - Home Meds: 1. oxycodone 15 mg Oral tab 1 tab tid (Last dose: 08/10/2016 10:30) 2. Lyrica 200 mg Oral 3 times per day (Last dose: 08/10/2016 10:30) 3. clonazepam 2 mg oral tab 3 times per day (Last dose: 08/10/2016 10:30) 4. Paxil 20 mg Oral tab 1 tab once daily (Last dose: 08/09/2016) 5. Ambien Unknown Oral once daily - PMHx: Anxiety; Asthma; Chronic Back pain; perforated stomach ulcer; - PSHx: Gastric Bypass; right ankle surgery; Tonsillectomy; Gall Bladder Removal; stomach surgery; - Social history: Smoking status: Patient uses tobacco products, current every day smoker. No barriers to communication noted, The patient speaks fluent [place] Leonean. - Family history: Not pertinent. - : The pt / caregiver states he / she is not on anticoagulants. Home medication list is obtained from the patient. - Exposure Risk Screening:: None identified. Vital Signs: 08/10 14:23 BP 132 / 77 (auto/); ms2 14:23 Pulse 64 MON; Resp 20 S; Pulse Ox 99% ; ms2 14:25 BP 132 / 77; Pulse 74; Resp 18; Temp 95.0(O); Pulse Ox 100% on R/A; Weight 70.31 kg / rn1 155.01 lbs (R); Height 6 ft. 0 in. (182.88 cm) (R); Pain 7/10; 14:55 BP 125 / 86 (auto/); ms2 14:55 Pulse 50 MON; Resp 20 S; Pulse Ox 100% ; ms2 15:10 BP 116 / 78 (auto/); ms2 15:10 Pulse 52 MON; Resp 20 S; Pulse Ox 100% ; ms2 15:47 BP 118 / 77 (auto/); ms2 15:48 Pulse 60 MON; Resp 20 S; Pulse Ox 98% ; ms2 16:10 BP 140 / 89 (auto/); ms2 16:11 Pulse 66 MON; Resp 20 S; Pulse Ox 92% ; ms2 16:12 Pulse 46 MON; Resp 20 S; Pulse Ox 100% ; ms2 16:40 BP 117 / 77 (auto/); ms2 16:40 Pulse 54 MON; Resp 20 S; Pulse Ox 100% ; ms2 16:55 BP 114 / 73 (auto/); ms2 16:55 Pulse 54 MON; Resp 20 S; Pulse Ox 100% ; ms2 17:24 BP 115 / 84 (auto/); ms2 17:24 Pulse 50 MON; Resp 20 S; Pulse Ox 95% ; ms2 17:25 BP 117 / 78 (auto/); ms2 17:25 Pulse 50 MON; Resp 20 S; Pulse Ox 95% ; ms2 17:40 BP 138 / 81 (auto/); ms2 17:40 Pulse 58 MON; Resp 20 S; Pulse Ox 100% ; ms2 17:46 Pulse 48 MON; Resp 20 S; Pulse Ox 100% ; ms2 17:55 BP 124 / 73 (auto/); ms2 17:55 Pulse 56 MON; Resp 20 S; Pulse Ox 100% ; ms2 18:10 BP 118 / 79 (auto/); ms2 18:10 Pulse 68 MON; Resp 20 S; Pulse Ox 93% ; ms2 19:40 BP 129 / 83; Pulse 53; Resp 20 S; Temp 98.7(TE); Pulse Ox 98% ; ms2 20:18 Pulse 80; Pulse Ox 96% ; ms2 20:20 BP 105 / 64 Supine; Pulse 66; Resp 20 S; Pulse Ox 96% on R/A; ms2 20:20 BP 101 / 55 Sitting; Pulse 83; Resp 20 S; ms2 20:20 BP 99 / 58 Standing; Pulse 80; Resp 20 S; Pulse Ox 96% on R/A; ms2 20:35 BP 104 / 67 (auto/); ms2 14:25 Body Mass Index 21.02 (70.31 kg, 182.88 cm) rn1 20:20 not symptomatic ms2 MDM: 14:36 IV Saline Lock ordered. br1 14:37 CBC with Diff Ordered. EDMS 14:37 BMP Ordered. EDMS 14:37 Liver Profile Ordered. EDMS 14:38 Cattle And Wheat Farmer/Pulse Ox/q 30 min VS ordered. br1 14:38 Orthostatic VS ordered. br1 14:38 Prolactin Ordered. EDMS 14:39 Seizure Precautions ordered. br1 14:39 NS 0.9% 1000 ml IV at 150 mL/hr continuous ordered. br1 14:39 ECG WITH READING ER PHYS+CARDIAG ordered. EDMS 14:39 HCG,Serum Qualitative Ordered. EDMS 14:41 Chest, 2 View (pa\E\lat) Ordered. EDMS 14:41 CT Head Without Contrast Ordered. EDMS 14:41 Urinalysis Ordered. EDMS 14:41 Urine Culture Ordered. EDMS 14:41 Urine Toxicology Ordered. EDMS 14:45 ETHYL ALCOHOL (ETHANOL) Ordered. EDMS 15:05 Financial registration complete. [email or web address] 15:20 [facility] Payment Agreement was scanned into [employer] and attached to record. [email or web address] 15:34 BMP Reviewed. br1 15:34 Liver Profile Reviewed. br1 15:34 CBC with Diff Reviewed. br1 15:34 HCG,Serum Qualitative Reviewed. br1 15:34 ETHYL ALCOHOL (ETHANOL) Reviewed. br1 17:15 MRI Screening Tool - Place on chart, inform RN ordered. br1 17:16 -MRI-Brain without Ordered. EDMS 17:24 BED REQUEST+ADM ordered. EDMS 18:12 MRI Screening Tool - Place on chart, inform RN complete. deg 18:13 Urinalysis Reviewed. br1 18:13 Urine Toxicology Reviewed. br1 18:13 Chest, 2 View (pa\E\lat) Reviewed. br1 18:13 CT Head Without Contrast Reviewed. br1 18:16 Admission / Observation Status ordered. EDMS 18:43 REGULAR DIET ordered. EDMS 18:47 Written Provider Order was scanned into [employer] and attached to record. deg 18:57 LORazepam 1 mg IVP once ordered. jjr 19:31 CBC WITH DIFFERENTIAL Ordered. EDMS 19:31 BASIC METABOLIC PROFILE Ordered. EDMS 22:45 T-Sheet-- Draft Copy was scanned into [employer] and attached to record. klr 08/12 11:56 Trend VS was scanned into [employer] and attached to record. lg Administered Medications: 08/10 14:47 Drug: NS 0.9% 1000 ml [sodium chloride 0.9 % intravenous solution] Route: IV; Rate: 150 ms2 mL/hr; Site: right antecubital; 18:57 Drug: LORazepam 1 mg [lorazepam 2 mg/mL injection solution (0.5 mL)] Route: IVP; Site: jjr right antecubital; Signatures: Dispatcher [employer] EDMS Silvia Aguillon, Optical Instrument Assembly Supervisor Unit deg Navin Stanton RN RN ms2 Lydia Rodriguez, Reg Reg lg Paul Hanks RN RN dy Willy Tillman MD MD br1 Meredith Mccracken RN RN jFrancisca Reynolds, Reg Reg ks16 Andreia Humphreys The chart was reviewed and I authenticate all verbal orders and agree with the evaluation and treatment provided.Corrections: (The following items were deleted from the chart) 14:45 14:42 ETHYL ALCOHOL (ETHANOL)+LAB ordered. EDMS EDMS 18:43 18:17 OTHER CUSTOM DIETS ordered. EDMS EDMS Attachments: 15:20 [facility] [place] Payment Agreement [email or web address] 18:47 Written Provider Order deg 22:45 T-Sheet-- Draft Copy klr Chart Complete MTDD
--- NOTE | 2016-08-12 21:33 | EDDOCDS ---
Nurse's Notes [facility] Name: Emil Bull Age: 25 yrs Sex: Female : 1990 Arrival Date: 08/10/2016 Time: 14:11 Bed 18 Private MD: Diagnosis: Syncope and collapse-Versus Reported Seizures Presentation: 08/10 14:17 Presenting complaint: Presenting complaint: EMS states: call dispatched as seizure, pt jjr in recliner upon EMS arrival no postictal s/s, pt lethargic to this mortgage underwriter and cries suddenly FSBS 99. 14:22 Adult Sepsis Screening: Patient has new or worsening altered mentation (1 point). jjr Patient's respiratory rate is less than 22. Systolic blood pressure is greater than 100. Patient has a qSOFA score of 1- Negative Sepsis Screen. Status: Patient is not a vice president consulting services or dependent. Transition of care: patient was not received from another setting of care. 14:22 Acuity: TANMAY Level 3 j 14:22 Method Of Arrival: Ambulance jjr 19:43 Suicide/Homicide risk assessment- the patient denies having any suicidal and/or ms2 homicidal ideations and does not present with any other emotional, behavioral or mental health complaints. Triage Assessment: 14:29 General: Appears slender, Behavior is crying, drowsy. Pain: Location: forehead and jjr back. HIV screening NA for this visit Offered previously. Neurological: Level of Consciousness is lethargic, obeys commands. Respiratory: Airway is patent Respiratory effort is even, unlabored, Respiratory pattern is regular. Derm: Skin is dry, Skin is normal, Skin temperature is cool. Historical: - Allergies: no known allergies; - Home Meds: 1. oxycodone 15 mg Oral tab 1 tab tid (Last dose: 08/10/2016 10:30) 2. Lyrica 200 mg Oral 3 times per day (Last dose: 08/10/2016 10:30) 3. clonazepam 2 mg oral tab 3 times per day (Last dose: 08/10/2016 10:30) 4. Paxil 20 mg Oral tab 1 tab once daily (Last dose: 08/09/2016) 5. Ambien Unknown Oral once daily - PMHx: Anxiety; Asthma; Chronic Back pain; perforated stomach ulcer; - PSHx: Gastric Bypass; right ankle surgery; Tonsillectomy; Gall Bladder Removal; stomach surgery; - Social history: Smoking status: Patient uses tobacco products, current every day smoker. No barriers to communication noted, The patient speaks fluent [place]. - Family history: Not pertinent. - : The pt / caregiver states he / she is not on anticoagulants. Home medication list is obtained from the patient. - Exposure Risk Screening:: None identified. Screenin:16 Screening information is obtained from prior medical records. Fall risk: At risk due to ms2 apparent chemical impairment. Assistance ADL's: requires no assistance with activities of daily living. Abuse/DV Screen: The patient / caregiver reports he/she is: not in a situation that causes fear, pain or injury. Nutritional screening: No deficits noted. Advance Directives: Currently, there is no health care proxy. There is no active DNR order. There is no living will. There is no Power of Aoc Plans Intelligence Officer Chief. Advance directive information has not previously been placed in an [facility] medical record. Further advance directive information is declined. home support is adequate. Assessment: 15:03 General: pt lethargic -periods of apnea with 02 sat droppong to 74% 02 at 3 l applied ms2 with sat increasing to 100% --pt stimulated to wake up by sterna rub --awakens immediately------dr hall made aware--no further orders at this time.. Neurological: Level of Consciousness is alert, lethargic, obeys commands, speech slurred --cries easily and laughs at other times. Cardiovascular: Rhythm is sinus bradycardia No ectopy. Respiratory: Airway is patent Respiratory effort is even, unlabored, Respiratory pattern is regular, symmetrical, periods of apnea --pt stimulated by rubbing chest /moving feet---dr hall aware of this. GI: Abdomen is flat, non- distended. Derm: Skin is pink, warm & dry. Musculoskeletal: Range of motion intact in all extremities. 15:17 General: pt states wants something for headache ---old eccymosis noted to left frontal ms2 area. Neurological: Level of Consciousness is lethargic, obeys commands, Pupils are PERRLA, pinpoint. Derm: Skin is pink, warm & dry. 15:49 Adult Sepsis Screening: The patient does not have new or worsening altered mentation. ms2 Patient's respiratory rate is less than 22. Systolic blood pressure is greater than 100. Patient has a qSOFA score of 0- Negative Sepsis Screen. General: Appears unchanged. Behavior is cooperative, pt attempt to demand to drink or wants to have a cigarette or states and if not pt starts to become belligerent or starts to cry. Neurological: Level of Consciousness is lethargic, obeys commands. Cardiovascular: Rhythm is sinus rhythm. Respiratory: No deficits noted. Derm: Skin is pink, warm & dry. Musculoskeletal: Range of motion intact in all extremities. 16:12 General: Appears up to commode to void --pt unable at this time---pt more concerned ms2 with family being able to do whatever is asked of them by pt to take on or off flip/flops or letting her get slacks down to void or then wanting to it by herself--bellegerent. Neurological: Level of Consciousness is lethargic, obeys commands. Cardiovascular: Rhythm is sinus rhythm. Respiratory: No deficits noted. Derm: Skin is pink, warm & dry. Musculoskeletal: Range of motion intact in all extremities. 16:14 General: pt back in bed eyes closed and resting then pt suddenly sits up states she has ms2 had a seizure and mortgage underwriter is trying to put something in her nos (-mortgage underwriter replacing 02 cannula prior to pt sitting up and staring). 17:40 General: Appears in no apparent distress, Behavior is cooperative, hospitalist in ms2 seeing pt. Neurological: Level of Consciousness is lethargic, obeys commands. Cardiovascular: Rhythm is sinus bradycardia No ectopy. Respiratory: No deficits noted. Derm: Skin is pink, warm & dry. Musculoskeletal: Range of motion intact in all extremities. 18:57 General: to 1945 pt in MRI. ms2 19:47 General: Appears in no apparent distress, drowsy--medicated in MRI . Behavior is ms2 sleepy. Neurological: Level of Consciousness is drowsy but responds. Cardiovascular: Rhythm is sinus bradycardia No ectopy. Respiratory: No deficits noted. Airway is patent Respiratory effort is even, unlabored, Respiratory pattern is regular, symmetrical. GI: No deficits noted. Derm: Skin is pink, warm & dry. Musculoskeletal: Range of motion intact in all extremities. 20:20 General: Appears in no apparent distress, Behavior is cooperative. Neurological: Level ms2 of Consciousness is awake, tired /groggy. Cardiovascular: Rhythm is sinus rhythm No ectopy. Respiratory: No deficits noted. Airway is patent Respiratory effort is even, unlabored, Respiratory pattern is regular, symmetrical. Derm: Skin is pink, warm & dry. Musculoskeletal: Range of motion intact in all extremities. Vital Signs: 14:23 BP 132 / 77 (auto/); ms2 14:23 Pulse 64 MON; Resp 20 S; Pulse Ox 99% ; ms2 14:25 BP 132 / 77; Pulse 74; Resp 18; Temp 95.0(O); Pulse Ox 100% on R/A; Weight 70.31 kg rn1 (R); Height 6 ft. 0 in. (182.88 cm) (R); Pain 7/10; 14:55 BP 125 / 86 (auto/); ms2 14:55 Pulse 50 MON; Resp 20 S; Pulse Ox 100% ; ms2 15:10 BP 116 / 78 (auto/); ms2 15:10 Pulse 52 MON; Resp 20 S; Pulse Ox 100% ; ms2 15:47 BP 118 / 77 (auto/); ms2 15:48 Pulse 60 MON; Resp 20 S; Pulse Ox 98% ; ms2 16:10 BP 140 / 89 (auto/); ms2 16:11 Pulse 66 MON; Resp 20 S; Pulse Ox 92% ; ms2 16:12 Pulse 46 MON; Resp 20 S; Pulse Ox 100% ; ms2 16:40 BP 117 / 77 (auto/); ms2 16:40 Pulse 54 MON; Resp 20 S; Pulse Ox 100% ; ms2 16:55 BP 114 / 73 (auto/); ms2 16:55 Pulse 54 MON; Resp 20 S; Pulse Ox 100% ; ms2 17:24 BP 115 / 84 (auto/); ms2 17:24 Pulse 50 MON; Resp 20 S; Pulse Ox 95% ; ms2 17:25 BP 117 / 78 (auto/); ms2 17:25 Pulse 50 MON; Resp 20 S; Pulse Ox 95% ; ms2 17:40 BP 138 / 81 (auto/); ms2 17:40 Pulse 58 MON; Resp 20 S; Pulse Ox 100% ; ms2 17:46 Pulse 48 MON; Resp 20 S; Pulse Ox 100% ; ms2 17:55 BP 124 / 73 (auto/); ms2 17:55 Pulse 56 MON; Resp 20 S; Pulse Ox 100% ; ms2 18:10 BP 118 / 79 (auto/); ms2 18:10 Pulse 68 MON; Resp 20 S; Pulse Ox 93% ; ms2 19:40 BP 129 / 83; Pulse 53; Resp 20 S; Temp 98.7(TE); Pulse Ox 98% ; ms2 20:18 Pulse 80; Pulse Ox 96% ; ms2 20:20 BP 105 / 64 Supine; Pulse 66; Resp 20 S; Pulse Ox 96% on R/A; ms2 20:20 BP 101 / 55 Sitting; Pulse 83; Resp 20 S; ms2 20:20 BP 99 / 58 Standing; Pulse 80; Resp 20 S; Pulse Ox 96% on R/A; ms2 20:35 BP 104 / 67 (auto/); ms2 14:25 Body Mass Index 21.02 (70.31 kg, 182.88 cm) rn1 20:20 not symptomatic ms2 Vitals: 14:30 Log In Time N/A - ambulance arrival. jjr ED Course: 14:12 Patient visited by Silvia Aguillon, Mannequin Sander And Finisher. deg 14:12 Navin Stanton,DAVID is Primary Nurse. deg 14:12 Patient moved to Waiting deg 14:12 Patient moved to 18 deg 14:23 Joshua Hall MD is Attending Physician. br1 14:23 Triage Initiated jjr 14:35 Inserted saline lock: 20 gauge in right antecubital area The patient tolerated the ms2 procedure well. No procedures done that require assistance. O2 via nasal cannula \T\ 2L/min. 14:36 Patient visited by Joshua Hall MD. br1 14:40 CBC with Diff Sent. ttb 14:40 BMP Sent. ttb 14:40 Liver Profile Sent. ttb 14:40 Prolactin Sent. ttb 14:41 Patient visited by Navin Stanton RN. ms2 14:42 HCG,Serum Qualitative Sent. ttb 14:53 Patient visited by Tyrel Nava PCA. jrd 14:58 ETHYL ALCOHOL (ETHANOL) Sent. ms2 15:09 The patient / caregiver is instructed regarding the plan of care and ED course. ms2 Accompanied by Family Member, Patient has correct armband on for positive identification. Placed in gown. Bed in low position. Call light in reach. Side rails up X2. Adult w/ patient. Seizure precautions initiated. president and chief commercial officer on. Pulse ox on. NIBP on. 15:18 IV is patent, is intact, is free of redness or swelling. solution is infusing as ms2 ordered. 15:20 [facility] [place] was scanned into [employer] and attached to record. [id number] 15:49 Patient visited by Navin Stanton RN. ms2 15:49 CT Head Without Contrast Returned. EDMS 16:19 The patient / caregiver is instructed regarding the plan of care and ED course. Bed in ms2 low position. Call light in reach. Side rails up X2. Adult w/ patient. Seizure precautions initiated. president and chief commercial officer on. Pulse ox on. NIBP on. 16:19 IV is patent, is intact, is free of redness or swelling. solution is infusing as ms2 ordered. 16:31 Chest, 2 View (pa\E\lat) Returned. EDMS 17:25 Patient visited by Navin Stanton RN. ms2 17:26 Shelbi Velez is Hospitalizing Provider. br1 17:26 Urine Toxicology Sent. ms2 17:26 Urine Culture Sent. ms2 17:26 Urinalysis Sent. ms2 17:40 The patient / caregiver is instructed regarding the plan of care and ED course. Cardiac ms2 monitor on. Pulse ox on. NIBP on. 17:40 IV is patent, is intact, is free of redness or swelling. solution is infusing as ms2 ordered. O2 via nasal cannula off pt presently--staying more awake --hospitalist in seeing pt. 18:38 EKG-ADULT Returned. EDMS 18:47 Written Provider Order was scanned into [employer] and attached to record. deg 19:41 Patient visited by Navin Stanton RN. ms2 19:47 Patient visited by Navin Stanton RN. ms2 19:49 The patient / caregiver is instructed regarding the plan of care and ED course. Cardiac ms2 monitor on. Pulse ox on. NIBP on. 19:49 IV is patent, is intact, is free of redness or swelling. solution is infusing as ms2 ordered. 19:53 The patient / caregiver is instructed regarding the plan of care and ED course. Diet: ms2 Patient given regular meal. Diet: pt happy with being able to eat. 20:11 Report given to david Mcelroy ---ICu. ms2 20:11 -MRI-Brain without Returned. EDMS 20:20 Patient visited by Navin Stanton RN. ms2 20:22 Diet: tolerated fair-50%. ms2 20:24 The patient / caregiver is instructed regarding the plan of care and ED course. Cardiac ms2 monitor on. Pulse ox on. NIBP on. 20:24 IV is patent, is intact, is free of redness or swelling. solution is infusing as ms2 ordered. pt frequently bends right arm upward . 22:45 T-Sheet-- Draft Copy was scanned into [employer] and attached to record. klr 08/12 11:56 Trend VS was scanned into [employer] and attached to record. lg Administered Medications: 08/10 14:47 Drug: NS 0.9% 1000 ml [sodium chloride 0.9 % intravenous solution] Route: IV; Rate: 150 ms2 mL/hr; Site: right antecubital; 18:57 Drug: LORazepam 1 mg [lorazepam 2 mg/mL injection solution (0.5 mL)] Route: IVP; Site: jjr right antecubital; Attachments: 08/12 11:56 Trend VS lg Intake: 08/10 20:23 PO: 148.00ml (Milk); IV: 225.00ml (NS); Total: 373.00ml. ms2 Output: 20:23 Urine: 80.00ml (Straight Cath); Total: 80.00ml. ms2 Order Results: Lab Order: CBC with Diff; SPEC'M 08/10/16 14:33 Test: WHITE BLOOD COUNT; Value: 6.4; Range: 4.0-10.0; Units: K/mm3; Status: F Test: RED BLOOD COUNT; Value: 4.73; Range: 4.00-5.40; Units: M/mm3; Status: F Test: HEMOGLOBIN; Value: 14.2; Range: 12.0-16.0; Units: g/dl; Status: F Test: HEMATOCRIT; Value: 43.0; Range: 36.0-47.0; Units: %; Status: F Test: MEAN CORPUSCULAR VOLUME; Value: 90.9; Range: 80.0-96.0; Units: fl; Status: F Test: MEAN CORPUSCULAR HEMOGLOBIN; Value: 30.0; Range: 27.0-33.0; Units: pg; Status: F Test: MEAN CORPUSCULAR HGB CONC; Value: 33.0; Range: 32.0-36.5; Units: g/dl; Status: F Test: RED CELL DISTRIBUTION WIDTH; Value: 12.8; Range: 11.5-14.5; Units: %; Status: F Test: PLATELET COUNT, AUTOMATED; Value: 276; Range: 150-450; Units: k/mm3; Status: F Test: NEUTROPHILS %; Value: 50.8; Range: 36.0-66.0; Units: %; Status: F Test: LYMPH %; Value: 39.8; Range: 24.0-44.0; Units: %; Status: F Test: MONO %; Value: 4.4; Range: 0.0-5.0; Units: %; Status: F Test: EOS %; Value: 2.8; Range: 0.0-3.0; Units: %; Status: F Test: BASO %; Value: 0.4; Range: 0.0-1.0; Units: %; Status: F Test: LARGE UNSTAINED CELL %; Value: 1.8; Range: 0.0-4.0; Units: %; Status: F Test: NEUTROPHILS #; Value: 3.3; Range: 1.8-7.7; Units: K/mm3; Status: F Test: LYMPH #; Value: 2.6; Range: 1.5-6.5; Units: K/mm3; Status: F Test: MONO #; Value: 0.3; Range: 0.0-0.8; Units: K/mm3; Status: F Test: EOS #; Value: 0.2; Range: 0.0-0.50; Units: K/mm3; Status: F Test: BASO #; Value: 0.0; Range: 0.0-0.2; Units: K/mm3; Status: F Test: LARGE UNSTAINED CELL #; Value: 0.1; Range: 0.0-0.4; Units: K/mm3; Status: F Lab Order: [facility]; SPEC'M 08/10/16 14:33 Test: GLUCOSE, FASTING; Value: 74; Range: 70-105; Units: MG/DL; Status: F Test: BLOOD UREA NITROGEN; Value: 11; Range: 7-18; Units: MG/DL; Status: F Test: CREATININE FOR GFR; Value: 0.52; Range: 0.55-1.02; Abnormal: Below low normal; Units: MG/DL; Status: F Test: GLOMERULAR FILTRATION RATE; Value: > 60.0; Range: >60; Status: F Test: SODIUM LEVEL; Value: 142; Range: 136-145; Units: MEQ/L; Status: F Test: POTASSIUM SERUM; Value: 3.7; Range: 3.5-5.1; Units: MEQ/L; Status: F Test: CHLORIDE LEVEL; Value: 105; Range: 98-107; Units: MEQ/L; Status: F Test: CARBON DIOXIDE LEVEL; Value: 29; Range: 21-32; Units: MEQ/L; Status: F Test: ANION GAP; Value: 8; Range: 8-16; Units: MEQ/L; Status: F Test: CALCIUM LEVEL; Value: 9.4; Range: 8.5-10.1; Units: MG/DL; Status: F Test Note: ; Units are mL/min/1.73 m2 Chronic Kidney Disease Staging per NKF: Stage I & II GFR >=60 Normal to Mildly Decreased Stage III GFR 30-59 Moderately Decreased Stage IV GFR 15-29 Severely Decreased Stage V GFR <15 Very Little GFR Left ESRD GFR <15 on SUPERINTENDENT MENAGERIE Lab Order: Liver Profile; RADHA'Roberto 08/10/16 14:33 Test: AST/SGOT; Value: 18; Range: 15-37; Units: U/L; Status: F Test: ALT/SGPT; Value: 29; Range: 12-78; Units: U/L; Status: F Test: ALKALINE PHOSPHATASE; Value: 170; Range: 45-117; Abnormal: Above high normal; Units: U/L; Status: F Test: BILIRUBIN,TOTAL; Value: 0.4; Range: 0.2-1.0; Units: MG/DL; Status: F Test: BILIRUBIN,DIRECT; Value: < 0.1; Range: 0.0-0.2; Units: MG/DL; Status: F Test: TOTAL PROTEIN; Value: 8.2; Range: 6.4-8.2; Units: GM/DL; Status: F Test: ALBUMIN; Value: 4.0; Range: 3.2-5.2; Units: GM/DL; Status: F Test: ALBUMIN/GLOBULIN RATIO; Value: 0.95; Range: 1.00-1.93; Abnormal: Below low normal; Status: F Lab Order: HCG,Serum Qualitative; SPEC'M 08/10/16 14:33 Test: HCG, SERUM QUALITATIVE; Value: NEGATIVE; Range: NEGATIVE; Status: F Lab Order: Urinalysis; SPEC'M 08/10/16 17:20 Test: APPEARANCE, URINE; Value: CLEAR; Range: CLEAR; Status: F Test: COLOR, URINE; Value: YELLOW; Range: YELLOW; Status: F Test: PH,URINE; Value: 6.0; Range: 5.0-9.0; Units: UNITS; Status: F Test: SPECIFIC GRAVITY URINE AUTO; Value: 1.017; Range: 1.002-1.035; Status: F Test: PROTEIN, URINE AUTO; Value: NEGATIVE; Range: NEGATIVE; Units: mg/dL; Status: F Test: GLUCOSE, URINE (UA) AUTO; Value: NEGATIVE; Range: NEGATIVE; Units: mg/dL; Status: F Test: KETONE, URINE AUTO; Value: TRACE; Range: NEGATIVE; Abnormal: Above high normal; Units: mg/dL; Status: F Test: UROBILINOGEN, URINE AUTO; Value: 0.2; Range: 0.0-2.0; Units: mg/dL; Status: F Test: BILIRUBIN, URINE AUTO; Value: NEGATIVE; Range: NEGATIVE; Status: F Test: NITRITE, URINE AUTO; Value: NEGATIVE; Range: NEGATIVE; Status: F Test: LEUKOCYTE ESTERASE, URINE AUTO; Value: NEGATIVE; Range: NEGATIVE; Status: F Test: BLOOD, URINE BLOOD; Value: NEGATIVE; Range: NEGATIVE; Status: F Test: WBC, URINE AUTO; Value: 3; Range: 0-3; Units: /HPF; Status: F Test: RBC, URINE AUTO; Value: 3; Range: 0-3; Units: /HPF; Status: F Test: BACTERIA, URINE AUTO; Value: NEGATIVE; Range: NEGATIVE; Status: F Test: SQUAMOUS EPITHELIAL CELL UR AU; Value: 1; Range: 0-6; Units: /HPF; Status: F Test: MUCUS, URINE; Value: SMALL; Range: NEGATIVE; Status: F Test: HYALINE CAST, URINE AUTO; Value: 0; Range: 0-1; Units: /LPF; Status: F Lab Order: Urine Toxicology; SPEC'M 08/10/16 17:20 Test: AMPHETAMINES LEVEL URINE; Value: POSITIVE; Range: NEGATIVE; Abnormal: Above high normal; Status: F Test: BARBITURATES URINE; Value: NEGATIVE; Range: NEGATIVE; Status: F Test: BENZODIAZEPINES URINE; Value: NEGATIVE; Range: NEGATIVE; Status: F Test: CANNABINOIDS URINE; Value: NEGATIVE; Range: NEGATIVE; Status: F Test: COCAINE METABOLITE URINE; Value: NEGATIVE; Range: NEGATIVE; Status: F Test: METHADONE URINE; Value: NEGATIVE; Range: NEGATIVE; Status: F Test: OPIATES URINE; Value: POSITIVE; Range: NEGATIVE; Abnormal: Above high normal; Status: F Test: TRICYCLIC ANTIDEPRESS URINE; Value: NEGATIVE; Range: NEGATIVE; Status: F Test Note: ; ALL PRESUMPTIVE POSITIVE FINDINGS ARE UNCONFIRMED NORMAL VALUES THRESHOLD IN NG/ML AMPHETAMINES 1000 METHAMPHETAMINES 1000 BARBITURATES 300 BENZODIAZEPINES 300 CANNABINOIDS (THC) 50 COCAINE METABOLITE 300 METHADONE 300 OPIATES 300 PHENCYCLIDINE 25 TRICYCLIC ANTIDEPRESSANTS 1000 RESULTS ARE FOR MEDICAL PURPOSES ONLY. ALL URINE SPECIMENS WILL BE SAVED FOR 3 DAYS. IF CONFIRMATION OF A PRESUMPTIVE POSTIVE SCREEN RESULT IS DESIRED, CALL CHEMISTRY ([phone]) AND REQUEST URINE TO BE SENT TO REFERENCE LAB. FOR A LIST OF CLOSELY RELATED COMPOUNDS PLEASE CALL THE LAB. Lab Order: ETHYL ALCOHOL (ETHANOL); SPEC'M 08/10/16 14:33 Test: ETHYL ALCOHOL (ETHANOL); Value: < 0.003; Range: 0.000-0.010; Units: %; Status: F Radiology Order: EKG-ADULT Test: EKG-ADULT REASON FOR EXAMINATION: dysrhythmia; Stationary ECG Study; 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: ; : 1990 Requested By: JOSHUA Cowart; Order Number: [id number] Radha MD: Johnathan Torres; Measurements; Intervals [place]; Rate: 54 P: 23; IN: 152 QRS: 62; QRSD: 85 T: 61; QT: 445; QTc: 423; Interpretive Statements; SINUS BRADYCARDIA; EARLY REPOLARIZATION; SIMILAR TO 08/05/16; Electronically Signed On 08-10-2016 18:10:37 EST by Johnathan Torres; Radiology Order: Chest, 2 View (pa\E\lat) Test: Chest, 2 View (pa\E\lat) REASON FOR EXAMINATION: Syncope; Clinical: Syncope .; ; Comparison: 08/05/2016 .; ; Technique: AP and lateral.; ; Findings:; The mediastinum and cardiac silhouette are normal. The lung dodd are clear and; without acute consolidation, effusion, or pneumothorax. The skeletal structures; are intact and normal.; ; Impression:; 1. No acute cardiopulmonary process.; ; ; Signed by; Jose R Bustillos MD 08/10/2016 03:49 P; Radiology Order: CT Head Without Contrast Test: CT Head Without Contrast REASON FOR EXAMINATION: reports multiple seizures today; Clinical: Seizures .; ; Comparison: 08/05/2016 .; ; Findings:; The ventricles, sulci, and cisterns are normal in position and appearance.; Watson-white differentiation is maintained. No acute intracranial hemorrhage,; mass/mass effect, pathology or trauma/injury. No evidence for acute infarction.; No extra-axial fluid collection. Calvarium is intact. Paranasal sinuses and; mastoid air cells are clear.; ; Impression:; Normal noncontrast head CT.; No evidence for acute intracranial pathology or trauma/injury.; ; ; Signed by; Jose R Bustillos MD 08/10/2016 03:36 P; Radiology Order: -MRI-Brain without Test: -MRI-Brain without REASON FOR EXAMINATION: report of multiple seizures; ; CLINICAL HISTORY: Seizure.; TECHNIQUE: MRI of the brain was performed without administration of intravenous contrast material. T1; spine echo, T2 fast spin echo and FLAIR sequences were obtained in sagittal, axial and coronal plane; s.; FINDINGS:; The sella and parasellar regions are unremarkable in appearance. The corpus callosum and cerebellar t; onsils are of normal configuration and position. There are no intra or extra-axial collections. There; is no mass effect or midline shift. There is no evidence of hematoma formation. There is no hydrocep; halus.; The brain stem shows no mass effects, infarcts or hemorrhage. There are no cerebellopontine tumors. T; he acoustic nerves are symmetrical. No cerebellar intra-axial pathology delineated. The fourth ventri; bo and aqueduct are normal. No abnormalities of the optic nerves are identified. There is no evidenc; e of atrophic or degenerative changes. No dural or subdural masses or collections are detected.; The visualized arterial structures demonstrate normal appearing flow voids. The VII and VIII nerve bu; ndles are visualized and are unremarkable in appearance. There are no suspicious signal abnormalities; within the infra or supratentorial space.; Mucosal thickening is seen involving bilateral ethmoid and maxillary sinuses compatible with chronic; sinusitis.; IMPRESSION:; Chronic ethmoid and maxillary sinusitis, otherwise normal MRI of the brain.; Thank you for your kind referral of this patient.; ; ; Outcome: 17:26 Decision to Hospitalize by Provider. br1 19:43 Discharge Assessment: patient administered narcotics - yes. Patient was admitted to the [address] or transferred to another facility. The following High Risk Discharge criteria are identified: None. CT Study completed. MRI Study completed. 20:24 Condition: stable. Property :Personal belongings accompany Pt. ms2 20:30 Admitted to ICU accompanied by nurse, accompanied by tech, family with patient, via ms2 stretcher, on monitor, with chart. Condition: stable. 20:31 Patient left the ED. ms2 Signatures: Dispatcher [employer] EDMS Silvia Aguillon, Mannequin Sander And Finisher Unit deg Navin Stanton RN RN ms2 Lydia Rodriguez, Reg Reg lg Joshua Hall MD MD br1 Meredith Mccracken RN RN jjr Conner, Teresa, RN RN ttb Tyrel Nava, JUSTIN BOBBIN WASHER Anthony Leblanc rn1 Francisca Diaz, Reg Reg [id number] Andreia Humphreys Corrections: (The following items were deleted from the chart) 14:23 14:17 Presenting complaint: jjjayden ontiveros 14:45 14:42 ETHYL ALCOHOL (ETHANOL)+LAB sent. ms2 EDMS 15:19 15:03 Neurological: Level of Consciousness is awake, alert, obeys commands, speech ms2 slurred --cries easily and laughs at other times. ms2 Chart Complete MTDD
[2016-08-12 22:00] VITALS: BP 127/67
[2016-08-12] MEDS ORDERED: SENNA 8.6 MG TAB (SENOKOT) PO PRN (23:15)
[2016-08-13] MEDS: NS 1,000 ML IV SCH ×2 (00:33→10:04)
--- NOTE | 2016-08-13 05:17 | EEG ---
DATE OF PROCEDURE: 08/12/2016 REFERRING PHYSICIAN: Klaus Shahid MD DIAGNOSIS: Episodes of unresponsiveness and back arching, rule out seizures. EEG NUMBER: [id number]. HISTORY: The patient is 25-year-old woman who had episodes of unresponsiveness to vocal stimuli and eyes closed and chewing. This lasted for 10 seconds followed by our arching backwards and crying. This EEG was done to rule out epileptic potential. She is currently taking Lyrica, Prozac, vitamin B12, Adderall, Ativan, oxycodone, Xanax. TECHNICAL DESCRIPTION: This digital EEG was recorded by 21 scalp, ear and two EKG electrodes and was reviewed in bipolar and referential montages following reformatting in 10-20 international electrode placement system. INTERPRETATION: The patient was noted to be in awake and drowsy states during this EEG. Resting awake background consisted of 11 Hz alpha activity measuring 15-40 microvolts in amplitude, which was symmetric and reactive to eye opening. Attenuation of posterior dominant was seen during transition into drowsiness. Stage I and II sleep were reviewed and were symmetric bilaterally. Hyperventilation and photic stimulation remained unremarkable. EKG revealed normal sinus rhythm. No focal, lateralizing or epileptiform abnormalities were seen. No clinical or electrographic seizures were recorded. CONCLUSION: This EEG in awake, drowsy states, stage I and II sleep is within normal limits.
[2016-08-13 06:00] VITALS: BP 97/53
[2016-08-13 07:04] LABS: BASO % 0.4 % (0.0-1.0); EOS # 0.1 K/mm3 (0.0-0.50); LARGE UNSTAINED CELL # 0.1 K/mm3 (0.0-0.4); LARGE UNSTAINED CELL % 1.7 % (0.0-4.0); LYMPH # 2.5 K/mm3 (1.5-6.5); LYMPH % 39.7 % (24.0-44.0); MEAN CORPUSCULAR HGB CONC 33.1 g/dl (32.0-36.5); MEAN CORPUSCULAR VOLUME 93.6 fl (80.0-96.0); MONO # 0.3 K/mm3 (0.0-0.8); MONO % 4.9 % (0.0-5.0); NEUTROPHILS # 3.1 K/mm3 (1.8-7.7); NEUTROPHILS % 51.4 % (36.0-66.0); PLATELET COUNT, AUTOMATED 217 k/mm3 (150-450); RED CELL DISTRIBUTION WIDTH 13.3 % (11.5-14.5); WHITE BLOOD COUNT 6.1 K/mm3 (4.0-10.0)
[2016-08-13 07:09] LABS: ANION GAP 6 MEQ/L (8-16); BLOOD UREA NITROGEN 6 MG/DL (7-18); CALCIUM LEVEL 7.8 MG/DL (8.5-10.1); CARBON DIOXIDE LEVEL 27 MEQ/L (21-32); CHLORIDE LEVEL 114 MEQ/L (98-107); CREATININE FOR GFR 0.42 MG/DL (0.55-1.02); GLOMERULAR FILTRATION RATE > 60.0 (>60); GLUCOSE, FASTING 73 MG/DL (70-105); POTASSIUM SERUM 3.8 MEQ/L (3.5-5.1); SODIUM LEVEL 147 MEQ/L (136-145)
[2016-08-13] MEDS: FERROUS SULFATE 325MG TAB PO SCH ×2 (09:35→20:40)
[2016-08-13] MEDS: FLUoxetine 20 MG CAP PO SCH (09:35)
[2016-08-13] MEDS: MULTIVITAMINS/MINERALS THERAP 1 TAB PO SCH (09:35)
[2016-08-13] MEDS: VITAMIN D 1,000 INTERNATIONAL UNITS TABLET PO SCH (09:35)
[2016-08-13] MEDS: NICOTINE 21MG/24HR 1 EA TRANSDERMAL TD SCH (09:35)
[2016-08-13] MEDS: CYANOCOBALAMIN 500 MCG TAB PO SCH ×2 (09:36→20:40)
[2016-08-13] MEDS: ADDERALL 5 MG TAB PO SCH (09:37)
[2016-08-13] MEDS: PREGABALIN 100 MG CAP (LYRICA) PO SCH ×3 (09:37→20:40)
[2016-08-13] MEDS: ENOXAPARIN 40 MG/0.4 ML SYRINGE (J1650) SC SCH (09:37)
[2016-08-13] MEDS: ALPRAZolam 0.5 MG TAB PO PRN ×2 (12:46→20:39)
[2016-08-13 14:00] VITALS: BP 126/73
--- NOTE | 2016-08-13 18:04 | IPN ---
DATE: 08/13/2016 SUBJECTIVE: Patient is seen and examined in the room today. Patient was resting comfortably in the room during the encounter. Per records, patient still has multiple episodes of syncope/seizure-like episodes. She regained consciousness without any sequelae. Patient had an EEG performed yesterday and the result came back stating no seizure noted. OBJECTIVE: VITAL SIGNS: Temperature is 97.2, pulse is 62, respirations 15, blood pressure is 97/53, pulse oximetry is 99% on room air. GENERAL: No sign of acute distress, alert and oriented times three. HEENT: Normocephalic, atraumatic. Extraocular motor grossly intact. CARDIOVASCULAR: Positive S1, S2, regular rate. LUNGS: Clear to auscultation bilaterally. ABDOMEN: Soft, nontender, nondistended. Bowel sounds present. No rebound. No guarding. EXTREMITIES: No edema. No cyanosis. LABORATORY DATA: WBC is 6.1, hemoglobin is 11.9, hematocrit is 36, platelet count is 215. Sodium is 147, potassium is 3.8, chloride is 114, carbon dioxide is 27, BUN 6, creatinine 0.42, GFR greater than 60, fasting glucose is 73, calcium is 7.8. ASSESSMENT AND PLAN: 1. Pseudoseizures. EEG performed which is negative for seizures. Patient is on seizure precautions. Patient has as-needed Ativan. 2. Medication addiction. Patient was prescribed Adderall and oxycodone by the primary care provider. Per the medical record, patient has a history of crushing the medications and snorting it. We will consult psychiatrist regarding her medication adjustments. 3. Anxiety. She is on Prozac. Patient was prescribed Klonopin by the primary care provider. However, during presentation, urine toxicology was performed and is negative for the benzodiazepine which raised the concern for medication misuse. 4. Attention deficit hyperactivity disorder (ADHD). Primary care provider (PCP) was managing patient's ADHD in the past. Patient was on Adderall. We will followup with psychiatry recommendations. 5. Chronic back pain and neck pain. Oxycodone was given to the patient. However, patient was using it by snorting the oxycodone. Patient has a history of significant usage of pain medication to the extent that patient was very lethargic when the patient presented to the hospital. 6. History of gastric bypass. 7. Deep vein thrombosis (DVT) prophylaxis, on Lovenox.
[2016-08-13 22:00] VITALS: BP 131/70
[2016-08-14 06:00] VITALS: BP 113/61
[2016-08-14 06:57] LABS: BASO % 0.4 % (0.0-1.0); EOS # 0.1 K/mm3 (0.0-0.50); EOS % 1.4 % (0.0-3.0); LARGE UNSTAINED CELL # 0.1 K/mm3 (0.0-0.4); LARGE UNSTAINED CELL % 1.7 % (0.0-4.0); LYMPH # 2.3 K/mm3 (1.5-6.5); LYMPH % 36.6 % (24.0-44.0); MEAN CORPUSCULAR HEMOGLOBIN 30.5 pg (27.0-33.0); MEAN CORPUSCULAR HGB CONC 33.3 g/dl (32.0-36.5); MEAN CORPUSCULAR VOLUME 91.6 fl (80.0-96.0); MONO # 0.3 K/mm3 (0.0-0.8); MONO % 5.2 % (0.0-5.0); NEUTROPHILS # 3.4 K/mm3 (1.8-7.7); NEUTROPHILS % 54.8 % (36.0-66.0); PLATELET COUNT, AUTOMATED 189 k/mm3 (150-450); WHITE BLOOD COUNT 6.2 K/mm3 (4.0-10.0)
[2016-08-14 07:14] LABS: ANION GAP 6 MEQ/L (8-16); BLOOD UREA NITROGEN 9 MG/DL (7-18); CARBON DIOXIDE LEVEL 27 MEQ/L (21-32); CHLORIDE LEVEL 113 MEQ/L (98-107); CREATININE FOR GFR 0.39 MG/DL (0.55-1.02); GLOMERULAR FILTRATION RATE > 60.0 (>60); GLUCOSE, FASTING 82 MG/DL (70-105); POTASSIUM SERUM 3.6 MEQ/L (3.5-5.1); SODIUM LEVEL 146 MEQ/L (136-145)
[2016-08-14] MEDS: ADDERALL 5 MG TAB PO SCH (10:14)
[2016-08-14] MEDS: PREGABALIN 100 MG CAP (LYRICA) PO SCH (10:15)
[2016-08-14] MEDS: FERROUS SULFATE 325MG TAB PO SCH (10:15)
[2016-08-14] MEDS: MULTIVITAMINS/MINERALS THERAP 1 TAB PO SCH (10:16)
[2016-08-14] MEDS: CYANOCOBALAMIN 500 MCG TAB PO SCH (10:16)
[2016-08-14] MEDS: VITAMIN D 1,000 INTERNATIONAL UNITS TABLET PO SCH (10:16)
[2016-08-14] MEDS: FLUoxetine 20 MG CAP PO SCH (10:16)
[2016-08-14] MEDS: NICOTINE 21MG/24HR 1 EA TRANSDERMAL TD SCH (10:16)
[2016-08-14] MEDS: ENOXAPARIN 40 MG/0.4 ML SYRINGE (J1650) SC SCH (10:18)
[2016-08-14] MEDS: ALPRAZolam 0.5 MG TAB PO PRN (10:18)
[2016-08-14] MEDS ORDERED: INFLUENZA QUADRIVALENT PF VACCINE 0.5ML SYRINGE/VIAL (90686) IM ONE (12:00)
--- NOTE | 2016-08-14 18:14 | IPN ---
DATE: 08/14/2016 I spoke with the hospitalist this morning, August 14, and discussed my assessment and recommendations with him regarding Ms. Linda at length. He indicated that she was possibly declining to go to inpatient rehabilitation, but he had not seen her today. He planned to discuss that with her. The other alternatives were also discussed.
--- NOTE | 2016-08-14 20:09 | CR ---
DATE OF CONSULTATION: 08/13/2016 CHIEF COMPLAINT: Feels anxious. SUBJECTIVE: I have been asked to see this patient to make an assessment regarding anxiety, depression, as well as current drug misuse. The chart is reviewed. Patient is interviewed. She is a 25 years old. She is single. She has a daughter, who is 2 years old, who lives with her mother, who has custody of the child. Patient is allowed visits about twice a week, supervised via the court. She came into the hospital as she was found to have seizures, or at least seizure-like activity. She says she does not recall the events, but they were beginning to occur frequently, up to 10 times a day, when she said she was told that her mouth would shake and then her body. Says she does not remember it. Since hospitalization, has been seen by the hospitalist. Apparently has been seen by neurology as well. An electroencephalogram (EEG) has been done. I am told that is negative. The patient says has been treated for depression and anxiety by primary care and that she is currently on Prozac at 20 mg daily. She is also on Klonopin at 2 mg two to three times a day. Has been on this dose for the last few months, and Klonopin as a total for the last 8 months or so. Is also on oxycodone. Says gets it for back pain, which she says she has had for last 8 years or so. She is also on Adderall at 20 mg twice a day. Says is diagnosed with attention deficit hyperactivity disorder (ADHD) several years ago. It should be noted, she suggests she has not been seen by mental health with any regularity. Does say she attended [facility], 21 days. Completed it. It was about a year ago. She feels she is addicted to these medications and says she has been snorting the Adderall as well as the opiate. Says has used up to 10 pills a day or so. Says does not regularly. She says she does not think her primary care is aware. She collects her medicines regularly. It should also be noted, upon admission urine toxicology was positive for opiates and amphetamines but not for benzodiazepines, so there is some possibility that she may either not be using it regularly or diverting it. Says wishes to come off these medicines. She feels she is increasingly addicted. Says she is anxious, gets panic attacks. Also feels depressed. Sleep is erratic. She denies any suicidal thoughts intents. Says has never thought of hurting herself in the past either. Says feels depressed a fair amount of the time. Since admission, has been off these medicines and has received Ativan intravenously on one occasion a couple of days ago. She has also received Xanax orally at 0.5 mg one on occasion; this was earlier today, when she was quite anxious. Says the longest she has been without drugs or alcohol was a few months, when she was with her child. She says he was quite anxious during that time as well and had frequent panic attacks. Denies has had any substantial periods since then of being without drugs or alcohol. Says has a tendency to arrange things, says is particular about that. She is upset when they are out of order, within her own surroundings. No history consistent with hypomania nor araseli. No psychosis. No history consistent with post traumatic stress disorder as far as I am aware. PAST PSYCHIATRIC HISTORY: Says was seen for anxiety when she was about 13. Saw a counselor. Says may have been on medicines as well. Is not sure. Denies any history of inpatient psychiatric hospitalizations. MEDICAL HISTORY: Is treated for back pain. Says has seen pain specialists in the past. FAMILY PSYCHIATRIC HISTORY: Denies any. Does say cousins on her mother's side have had trouble with drugs and alcohol. SOCIAL HISTORY: She is local. Stays on her own. Says her child's father is no longer involved. She says her surroundings are difficult. She also indicates her friends all use drugs. She sees her parents, her mother and stepfather. Says her parents are supportive. Biological father has not been in the picture for many years. Says she and her boyfriend broke off their relationship several months ago. MENTAL STATUS EXAMINATION: She is sitting up in bed. She is a bit unkempt, but she is cooperative. Is in hospital clothes. No agitation. Mildly fidgety. She is coherent. At times mildly tearful but reconstitutes easily. She denies any suicidal thoughts or intents. No evidence of any homicidal ideas or intents at present nor of any psychosis. Does not appear to be internally preoccupied. She is alert. She is able to maintain and shift attention adequately. She is oriented to time, place, and person. Can spell the word "house" forward and backward. Immediate and short-term recall are good. Intellect average. Judgment is good. Insight is fair. VITAL SIGNS: Blood pressure 126/73, pulse 69, temperature is 97.1. LABORATORY VALUES: These indicate urine toxicology done on August 10 positive for opiates and amphetamines. Metabolic profile shows sodium slightly raised at 147. Chloride is also slightly high at 114. Calcium is 7.8, which is below normal limits. Complete blood count essentially within normal limits except for RBC low at 3.84. Hemoglobin 11.9. An MRI of the brain done a couple days ago is essentially within normal limits. ASSESSMENT: Opiate use disorder 2. Amphetamine use disorder 3. Possible benzodiazepine use disorder. 4. Consider substance-induced anxiety disorder as well as substance use depressive disorder. She is depressed and anxious. Denies any suicidal or homicidal thoughts or intents. No evidence of any psychosis. She has been misusing opiates, amphetamines, and possibly the benzodiazepine, though urine toxicology was negative for the benzodiazepine, the clonazepam. Her vital signs suggest unlikely that she is going through physiological withdrawal. RECOMMENDATIONS: She does not require inpatient psychiatry at this point when medically stable. Refer her to inpatient rehabilitation for substance abuse, to assist with her drug misuse. It is preferable that is arranged from here. If she is not able to get to an inpatient rehabilitation facility, refer to an outpatient substance abuse treatment facility locally as well as outpatient psychiatry. Meanwhile, increase the Prozac to 30 mg daily. Avoid benzodiazepines here if you can and on discharge. I understand from the staff here that she will be staying here overnight, and that is preferable. The followup arrangements should be made before she leaves hospital, as chances of her reusing are fairly high. Thank you for the consult. If there are any questions, please call. The assessment took 60 minutes.
--- NOTE | 2016-08-14 20:23 | DSES ---
DATE OF ADMISSION: 08/12/2016 DATE OF DISCHARGE: 08/14/2016 PRIMARY CARE PROVIDER: EVGENY Bowden in [place], [place]. ADMISSION/DISCHARGE DIAGNOSES: 1. Pseudoseizures. 2. Multisubstance abuse. 3. Anxiety. 4. Attention deficit hyperactivity disorder (ADHD). 5. Chronic back pain and neck pain. 6. History of gastric bypass. CONSULTANTS: Psychiatrist, Dr. Joy. HOSPITALIZATION COURSE: The patient is a 25-year-old female who presented to [facility] on 08/10/2016 for seizure like activity. The patient was admitted to progressive care unit (PCU), and the patient was placed on seizure precautions. CT of the head was performed in the emergency room, which was negative. Brain MRI was also obtained, which did not show any significant findings besides chronic sinusitis. Based on the history and physical, the patient was determined to have pseudoseizure. On 08/12/2016, the patient had an EEG performed, which also came back negative for seizures. Through the encounter, the patient stated that she has been snorting crack cocaine with Adderall in the past 6 months and psychiatrist has been consulted and recommended drug rehabilitation. On 08/14/2016, the patient is determined medically stable for discharge and the information for both inpatient and outpatient drug rehabilitation facility was given to the patient and the patient was recommended to set up an appointment at her earliest convenience. Before the discharge, I also reached out the patient's primary care provider, Adrián Rios, and discussed the findings for medication misuse. OBJECTIVE: VITAL SIGNS: Temperature 96.6, pulse is 64, respirations 16, blood pressure is 113/61, pulse oximetry is 99% on room air. GENERAL: No sign of acute distress. Alert and oriented times three. HEENT: Normocephalic, atraumatic. Extraocular motors grossly intact. CARDIOVASCULAR: Positive S1, S2. Regular rate. LUNGS: Clear to auscultation bilaterally. ABDOMEN: Soft, nontender, nondistended. Bowel sounds present. No rebound or guarding. EXTREMITIES: No edema. No cyanosis. No calf tenderness. LABORATORY DATA: WBC is 6.2, hemoglobin is 12.1, hematocrit is 36.5, platelet count is 189. Sodium is 146, potassium 3.6, chloride is 113, carbon dioxide 27, BUN 9, creatinine 0.39, GFR is greater than 60, fasting glucose is 82, calcium is 8.0. Urine toxicology positive for opiates and amphetamines. Negative for benzodiazepine (the patient has been prescribed Klonopin for her anxiety; however, it is not detected in the urine toxicology). Urine culture is negative. IMAGING STUDIES: CT of the head without contrast showed normal noncontrast head CT. No evidence of acute intracranial pathology or trauma or injury. Chest x-ray showed no acute cardiopulmonary processes. MRI of the brain without contrast showed chronic ethmoid and maxillary sinusitis, otherwise normal MRI of the brain. DISCHARGE MEDICATIONS: - vitamin D3 1000 units by mouth daily - vitamin B12 1000 mcg by mouth twice a day - ferrous sulfate 325 mg by mouth twice a day - fluoxetine 20 mg by mouth daily - multivitamin one tablet by mouth daily DISCHARGE INSTRUCTIONS: Discontinue line. Discharge home. Activity as tolerated. Diet as tolerated. The patient is recommended to followup with primary care provider within one week. The patient is recommended to seek out inpatient drug rehabilitation program. DISCHARGE CONDITION: Stable. DISCHARGE TIME: Greater than 30 minutes. The patient has a history of recurrent illicit drug addictions. I have discussed with the primary care provider with regard to the patient's misuse of oxycodone and Adderall. There is also a concern that she may not take the benzodiazepine as instructed because it is negative in her urine toxicology.
== END 2016-08-14 13:13 | disposition home or self-care (01) | DRG 53 ==
LOC: M ED 14:11 → M ICU 18:07 → M ED INP 18:08 → M ICU 20:31 → OBSVTOIN 08-12 10:38 → M MSPAV 08-12 11:56
PROVIDERS: ADMIT Internal Medicine Nephrology; ATTEND Internal Medicine
DX: G40.89 Other seizures (principal); F19.180 Other psychoactive substance abuse with psychoactive substance-induced anxiety disorder; M54.2 Cervicalgia; J32.2 Chronic ethmoidal sinusitis; J32.0 Chronic maxillary sinusitis; F11.90 Opioid use, unspecified, uncomplicated; F15.90 Other stimulant use, unspecified, uncomplicated; F17.210 Nicotine dependence, cigarettes, uncomplicated; F90.8 Attention-deficit hyperactivity disorder, other type; Z98.84 Bariatric surgery status; Z90.49 Acquired absence of other specified parts of digestive tract; Z79.899 Other long term (current) drug therapy

== ENCOUNTER → 2016-08-26 | Outpatient (REF) | payer OTHER ==
[~2016-08-26] MED LIST changes: +ADDE5TAB5 PO; +AMBI10TA PO; +CLON1TAB PO; +FERR325T PO; +LYRI200C PO; +OXYC15TA76 PO; +VITA-122 PO; +VITA100072 PO; +VITMTA PO
== END ==
LOC: M LAB REF 16:51
PROVIDERS: ATTEND Physician Assistant
DX: R30.0 Dysuria (principal)

== ENCOUNTER → 2016-09-03 | Outpatient (CLI) | payer OTHER ==
[2016-09-03 18:53] LABS: ALBUMIN 3.9 GM/DL (3.2-5.2); ALBUMIN/GLOBULIN RATIO 1.08 (1.00-1.93); ALKALINE PHOSPHATASE 95 U/L (45-117); ALT/SGPT 33 U/L (12-78); ANION GAP 6 MEQ/L (8-16); AST/SGOT 16 U/L (15-37); BILIRUBIN,TOTAL 0.3 MG/DL (0.2-1.0); BLOOD UREA NITROGEN 13 MG/DL (7-18); CALCIUM LEVEL 9.5 MG/DL (8.5-10.1); CARBON DIOXIDE LEVEL 29 MEQ/L (21-32); CHLORIDE LEVEL 103 MEQ/L (98-107); CREATININE FOR GFR 0.58 MG/DL (0.55-1.02); GLOMERULAR FILTRATION RATE > 60.0 (>60); GLUCOSE, FASTING 117 MG/DL (70-105); POTASSIUM SERUM 4.6 MEQ/L (3.5-5.1); SODIUM LEVEL 138 MEQ/L (136-145); TOTAL PROTEIN 7.5 GM/DL (6.4-8.2)
[2016-09-03 18:58] LABS: BASO % 0.3 % (0.0-1.0); EOS # 0.1 K/mm3 (0.0-0.50); EOS % 0.8 % (0.0-3.0); LARGE UNSTAINED CELL # 0.2 K/mm3 (0.0-0.4); LARGE UNSTAINED CELL % 1.4 % (0.0-4.0); LYMPH # 3.2 K/mm3 (1.5-6.5); MEAN CORPUSCULAR HEMOGLOBIN 30.1 pg (27.0-33.0); MEAN CORPUSCULAR HGB CONC 31.8 g/dl (32.0-36.5); MEAN CORPUSCULAR VOLUME 94.9 fl (80.0-96.0); MONO # 0.3 K/mm3 (0.0-0.8); NEUTROPHILS # 6.9 K/mm3 (1.8-7.7); NEUTROPHILS % 64.5 % (36.0-66.0); PLATELET COUNT, AUTOMATED 423 k/mm3 (150-450); RED CELL DISTRIBUTION WIDTH 13.1 % (11.5-14.5); WHITE BLOOD COUNT 10.7 K/mm3 (4.0-10.0)
[2016-09-04 12:54] LABS: CONTROL LINE INT CTR LINE PRESENT; HIV SCRN NEGATIVE (NEGATIVE); HIV SCRN1 NEGATIVE (NEGATIVE)
== END ==
LOC: M WUC 15:48
PROVIDERS: ATTEND Family Medicine Addiction Medicine
DX: Z02.89 Encounter for other administrative examinations (principal); F19.120 Other psychoactive substance abuse with intoxication, uncomplicated

== ENCOUNTER → 2017-04-04 | Outpatient (REF) | payer OTHER ==
[~2017-04-04] MED LIST changes: +ADDE1TAB14 PO; -ADDE5TAB5 PO; +FERR1TAB8 PO; -FERR325T PO
[2017-04-04 23:04] LABS: CONTROL LINE UCG INT CTR LINE PRESENT
== END ==
LOC: M LAB REF 09:37
PROVIDERS: ATTEND Physician Assistant Medical
DX: O23.40 Unspecified infection of urinary tract in pregnancy, unspecified trimester (principal); Z36.89 Encounter for other specified antenatal screening; Z3A.00 Weeks of gestation of pregnancy not specified

== ENCOUNTER 2017-07-16 11:03 | Emergency (ER) | payer OTHER ==
[2017-07-16 12:15] LABS: BASO % 0.5 % (0.0-1.0); EOS # 0.2 10^3/uL (0.0-0.50); EOS % 2.2 % (0.0-3.0); HEMATOCRIT 38.8 % (36.0-47.0); HEMOGLOBIN 12.3 g/dl (12.0-16.0); IMMATURE GRANULOCYTE % 0.4 % (0-0); LYMPH # 2.4 10^3/uL (1.5-6.5); LYMPH % 28.2 % (24.0-44.0); MEAN CORPUSCULAR HEMOGLOBIN 28.4 pg (27.0-33.0); MEAN CORPUSCULAR HGB CONC 31.7 g/dl (32.0-36.5); MEAN CORPUSCULAR VOLUME 89.6 fl (80.0-96.0); MONO # 0.5 10^3/uL (0.0-0.8); MONO % 5.5 % (0.0-5.0); NEUTROPHILS # 5.4 10^3/uL (1.8-7.7); NEUTROPHILS % 63.2 % (36.0-66.0); PLATELET COUNT, AUTOMATED 208 10^3/uL (150-450); RED BLOOD COUNT 4.33 10^6/uL (4.00-5.40); RED CELL DISTRIBUTION WIDTH 13.5 % (11.5-14.5); WHITE BLOOD COUNT 8.5 10^3/uL (4.0-10.0)
[2017-07-16 12:30] LABS: ANION GAP 5 MEQ/L (8-16); BLOOD UREA NITROGEN 10 MG/DL (7-18); CALCIUM LEVEL 8.7 MG/DL (8.5-10.1); CARBON DIOXIDE LEVEL 24 MEQ/L (21-32); CHLORIDE LEVEL 112 MEQ/L (98-107); CREATININE FOR GFR 0.52 MG/DL (0.55-1.30); GLOMERULAR FILTRATION RATE > 60.0 (>60); GLUCOSE, FASTING 57 MG/DL (70-100); POTASSIUM SERUM 4.5 MEQ/L (3.5-5.1); SODIUM LEVEL 141 MEQ/L (136-145)
[2017-07-16 13:06] LABS: CONTROL LINE UCG INT CTR LINE PRESENT; URINE PREG TEST NEGATIVE (NEGATIVE)
[2017-07-16 13:09] LABS: KETONE, URINE AUTO RFX NEGATIVE (NEGATIVE); LEUKOCYTE ESTERASE UR AUTO RFX TRACE (NEGATIVE); NITRITE, URINE AUTO RFX NEGATIVE (NEGATIVE); RBC, URINE AUTO RFX 4 /HPF (0-3); SPECIFIC GRAVITY UR AUTO RFX 1.015 (1.002-1.035); SQUAM EPITHELIAL CELL UR AURFX 2 /HPF (0-6); WBC, URINE AUTO RFX 2 /HPF (0-3)
[2017-07-16 13:11] LABS: FREE THYROXINE INDEX 2.8 % (1.3-4.8); T UPTAKE 34 % (30-39); THYROXINE (T4) 8.1 UG/DL (4.5-12.0)
[2017-07-16 13:30] LABS: CONTROL LINE HCG INT CTR LINE PRESENT; HCG, SERUM QUALITATIVE NEGATIVE (NEGATIVE)
[2017-07-16 13:56] LABS: ESTIMATED AVERAGE GLUCOSE 100 MG/DL (60-110); HEMOGLOBIN A1c 5.1 %
[2017-07-17 12:41] LABS: BEDSIDE GLUCOSE 70 MG/DL (70-105)
== END 2017-07-16 14:04 | disposition home or self-care (01) ==
LOC: M ED 11:03
DX: R55 Syncope and collapse (principal); F17.200 Nicotine dependence, unspecified, uncomplicated; Z98.84 Bariatric surgery status
CPT/HCPCS: 93005

== ENCOUNTER 2017-07-31 09:07 | Emergency (ER) | payer OTHER ==
[2017-07-31 09:52] LABS: HEMATOCRIT 38.6 % (36.0-47.0); HEMOGLOBIN 12.6 g/dl (12.0-16.0); MEAN CORPUSCULAR HGB CONC 32.6 g/dl (32.0-36.5); MEAN CORPUSCULAR VOLUME 85.8 fl (80.0-96.0); PLATELET COUNT, AUTOMATED 240 10^3/uL (150-450); RED CELL DISTRIBUTION WIDTH 13.6 % (11.5-14.5); WHITE BLOOD COUNT 7.2 10^3/uL (4.0-10.0)
[2017-07-31 10:09] LABS: CONTROL LINE HCG INT CTR LINE PRESENT; HCG, SERUM QUALITATIVE NEGATIVE (NEGATIVE)
[2017-07-31 10:21] LABS: ALBUMIN 3.6 GM/DL (3.2-5.2); ALBUMIN/GLOBULIN RATIO 1.03 (1.00-1.93); ALKALINE PHOSPHATASE 84 U/L (45-117); ALT/SGPT 18 U/L (12-78); ANION GAP 5 MEQ/L (8-16); AST/SGOT 13 U/L (7-37); BILIRUBIN,TOTAL 0.3 MG/DL (0.2-1.0); BLOOD UREA NITROGEN 12 MG/DL (7-18); CALCIUM LEVEL 8.7 MG/DL (8.5-10.1); CARBON DIOXIDE LEVEL 27 MEQ/L (21-32); CHLORIDE LEVEL 109 MEQ/L (98-107); CREATININE FOR GFR 0.57 MG/DL (0.55-1.30); GLOMERULAR FILTRATION RATE > 60.0 (>60); GLUCOSE, FASTING 85 MG/DL (70-100); POTASSIUM SERUM 4.2 MEQ/L (3.5-5.1); SODIUM LEVEL 141 MEQ/L (136-145); TOTAL PROTEIN 7.1 GM/DL (6.4-8.2)
[2017-07-31 10:39] LABS: ESTIMATED AVERAGE GLUCOSE 103 MG/DL (60-110); HEMOGLOBIN A1c 5.2 %
== END 2017-07-31 11:50 | disposition home or self-care (01) ==
LOC: M ED 09:07
DX: R55 Syncope and collapse (principal); J45.909 Unspecified asthma, uncomplicated; K21.9 Gastro-esophageal reflux disease without esophagitis; F17.210 Nicotine dependence, cigarettes, uncomplicated; Z79.899 Other long term (current) drug therapy; Z98.890 Other specified postprocedural states
CPT/HCPCS: 70450

== ENCOUNTER → 2017-09-02 | Outpatient (CLI) | payer OTHER | LOC: M WUC 13:52 | DX: S62.335A Displaced fracture of neck of fourth metacarpal bone, left hand, initial encounter for closed fracture (principal); X58.XXXA Exposure to other specified factors, initial encounter; Y92.89 Other specified places as the place of occurrence of the external cause | CPT/HCPCS: 73130 ==

== ENCOUNTER → 2017-09-18 | Outpatient (CLI) | payer MEDICAID | LOC: M OUTALCOH 09:17 | DX: F10.20 Alcohol dependence, uncomplicated (principal); F11.20 Opioid dependence, uncomplicated ==

== ENCOUNTER 2017-09-29 10:14 | Outpatient (RCR) | payer MEDICAID | END 2017-10-13 | LOC: M OUTALCOH 10-13 14:00 | DX: F10.20 Alcohol dependence, uncomplicated (principal); F11.20 Opioid dependence, uncomplicated; F17.200 Nicotine dependence, unspecified, uncomplicated ==

== ENCOUNTER 2017-10-01 05:08 | Emergency (ER) | payer OTHER, MEDICAID ==
[2017-10-01] MEDS: NS 1,000 ML IV (07:10)
[2017-10-01] MEDS: MORPHINE 4 MG/ML 1ML VIAL/SYRINGE (J2270) IV (07:10)
[2017-10-01] MEDS: AMPICILLIN SOD/SULBACTAM SOD 3 GM in D5W MINI-BAG PLUS 100 ML IV (07:14)
[2017-10-01 07:21] LABS: BASO % 0.3 % (0.0-1.0); EOS # 0.3 10^3/uL (0.0-0.50); EOS % 2.7 % (0.0-3.0); HEMATOCRIT 39.6 % (36.0-47.0); HEMOGLOBIN 12.6 g/dl (12.0-15.5); IMMATURE GRANULOCYTE % 0.2 % (0-3.0); LYMPH # 2.6 10^3/uL (1.5-6.5); LYMPH % 26.6 % (24.0-44.0); MEAN CORPUSCULAR HEMOGLOBIN 27.4 pg (27.0-33.0); MEAN CORPUSCULAR HGB CONC 31.8 g/dl (32.0-36.5); MEAN CORPUSCULAR VOLUME 86.1 fl (80.0-96.0); MONO # 0.6 10^3/uL (0.0-0.8); NEUTROPHILS # 6.3 10^3/uL (1.8-7.7); NEUTROPHILS % 64.2 % (36.0-66.0); PLATELET COUNT, AUTOMATED 264 10^3/uL (150-450); RED CELL DISTRIBUTION WIDTH 14.6 % (11.5-14.5); WHITE BLOOD COUNT 9.8 10^3/uL (4.0-10.0)
[2017-10-01 07:34] LABS: C REACTIVE PROTEIN QUANTITATIV < 0.30 MG/DL (0.00-0.30)
[2017-10-01] MEDS: KETOROLAC 30 MG/ML VIAL (J1885) IV (07:48)
[2017-10-01] MEDS: PERCOCET 5MG/325MG TAB PO (08:17)
== END 2017-10-01 08:42 | disposition home or self-care (01) ==
LOC: M ED 05:08
DX: K04.7 Periapical abscess without sinus (principal); K02.9 Dental caries, unspecified; F90.9 Attention-deficit hyperactivity disorder, unspecified type; F41.9 Anxiety disorder, unspecified; F33.9 Major depressive disorder, recurrent, unspecified; Z79.899 Other long term (current) drug therapy; F17.210 Nicotine dependence, cigarettes, uncomplicated
CPT/HCPCS: J2270

== ENCOUNTER 2017-10-20 08:44 | Outpatient (RCR) | payer MEDICAID | END 2017-11-13 | LOC: M OUTALCOH 10-21 10:00 | DX: F10.20 Alcohol dependence, uncomplicated (principal); F11.20 Opioid dependence, uncomplicated; F17.200 Nicotine dependence, unspecified, uncomplicated ==

== ENCOUNTER 2017-11-17 14:25 | Outpatient (RCR) | payer MEDICAID | END 2017-12-13 | LOC: M OUTALCOH 14:25 | DX: F10.20 Alcohol dependence, uncomplicated (principal); F11.20 Opioid dependence, uncomplicated; F17.200 Nicotine dependence, unspecified, uncomplicated ==

== ENCOUNTER 2017-12-15 14:25 | Outpatient (RCR) | payer MEDICAID | END 2018-01-13 | LOC: M OUTALCOH 14:25 | DX: F10.20 Alcohol dependence, uncomplicated (principal); F11.20 Opioid dependence, uncomplicated; F17.200 Nicotine dependence, unspecified, uncomplicated ==

== ENCOUNTER 2018-02-24 09:33 | Outpatient (RCR) | payer MEDICAID | END 2018-03-15 | LOC: M OUTALCOH 03-05 14:00 | DX: F10.20 Alcohol dependence, uncomplicated (principal); F11.20 Opioid dependence, uncomplicated; F17.200 Nicotine dependence, unspecified, uncomplicated ==

== ENCOUNTER 2018-04-09 11:18 | Outpatient (RCR) | payer MEDICAID | END 2018-04-15 | LOC: M OUTALCOH 04-14 10:30 | DX: F10.20 Alcohol dependence, uncomplicated (principal); F11.20 Opioid dependence, uncomplicated; F17.200 Nicotine dependence, unspecified, uncomplicated ==

== ENCOUNTER 2018-04-21 11:24 | Outpatient (RCR) | payer MEDICAID | END 2018-05-15 | LOC: M OUTALCOH 04-23 16:00 | DX: F10.20 Alcohol dependence, uncomplicated (principal); F11.20 Opioid dependence, uncomplicated; F17.200 Nicotine dependence, unspecified, uncomplicated ==

== ENCOUNTER 2018-06-12 13:00 | Outpatient (RCR) | payer MEDICAID | END 2018-06-15 | LOC: M OUTALCOH 13:00 | PROVIDERS: ATTEND Psychiatry & Neurology Psychiatry | DX: F10.20 Alcohol dependence, uncomplicated (principal); F11.20 Opioid dependence, uncomplicated; F17.200 Nicotine dependence, unspecified, uncomplicated ==

== ENCOUNTER → 2018-06-12 | Outpatient (REF) | payer MEDICAID ==
[~2018-06-12] MED LIST changes: +AUGM875T28 PO; +BUTACAP78 PO; -CLON1TAB PO; +CLON1TAB8 PO; +DULO1CAP3; +GABA600T4 PO; +HYDR50TA70 PO; +LAMO100T; +LITH300T2 PO; +MULTCAP PO; +PARO20TA3 PO; +PARO40TA2 PO; +PERC5TAB12 PO; +RISP0.5T3; +SUBO8MIS SL; +TRAZO50TA PO
[2018-06-12 17:05] LABS: APPEARANCE, URINE HAZY (CLEAR); BACTERIA, URINE AUTO NEGATIVE (NEGATIVE); BILIRUBIN, URINE AUTO NEGATIVE (NEGATIVE); BLOOD, URINE BLOOD NEGATIVE (NEGATIVE); COLOR, URINE YELLOW (YELLOW); GLUCOSE, URINE (UA) AUTO NEGATIVE (NEGATIVE); KETONE, URINE AUTO TRACE mg/dL (NEGATIVE); LEUKOCYTE ESTERASE, URINE AUTO 2+ (NEGATIVE); MUCUS, URINE SMALL (NEGATIVE); NITRITE, URINE AUTO NEGATIVE (NEGATIVE); PROTEIN, URINE AUTO 1+ mg/dL (NEGATIVE); RBC, URINE AUTO 3 /HPF (0-3); SPECIFIC GRAVITY URINE AUTO 1.018 (1.002-1.035); SQUAMOUS EPITHELIAL CELL UR AU 2 /HPF (0-6); WBC, URINE AUTO 87 /HPF (0-3)
== END ==
LOC: M LAB REF 16:10
PROVIDERS: ATTEND Physician Assistant Medical
DX: N39.0 Urinary tract infection, site not specified (principal)

== ENCOUNTER 2018-07-15 15:00 | Outpatient (RCR) | payer MEDICAID | END 2018-07-16 | LOC: M OUTALCOH 15:00 | PROVIDERS: ATTEND Psychiatry & Neurology Psychiatry | DX: F10.20 Alcohol dependence, uncomplicated (principal); F11.20 Opioid dependence, uncomplicated; F17.200 Nicotine dependence, unspecified, uncomplicated ==

== ENCOUNTER → 2020-08-14 | Outpatient (CLI) | payer MEDICAID ==
[~2020-08-14] MED LIST changes: -/DULO30CA OR; +CYMB1CAP5 OR; -DULO1CAP3; +DULO1CAP6; +FLUO20CA20 PO; -LAMO100T; +LAMO100T3; +OXYC-1 PO; -OXYC15TA76 PO; +OXYC1TAB23 PO; +RISP-7; -RISP0.5T3; +TRAZ1TAB10 PO; -TRAZO50TA PO; +VITA100018 PO; -VITA100072 PO
[2020-08-14 12:32] LABS: HEMATOCRIT 43.1 % (36.0-47.0); HEMOGLOBIN 13.3 g/dl (12.0-15.5); MEAN CORPUSCULAR HGB CONC 30.9 g/dl (32.0-36.5); MEAN CORPUSCULAR VOLUME 87.4 fl (80.0-96.0); PLATELET COUNT, AUTOMATED 236 10^3/uL (150-450); RED BLOOD COUNT 4.93 10^6/uL (4.00-5.40); WHITE BLOOD COUNT 6.2 10^3/uL (4.0-10.0)
[2020-08-14 13:06] LABS: ALBUMIN 3.6 GM/DL (3.2-5.2); ALT/SGPT 21 U/L (12-78); BILIRUBIN,TOTAL 0.5 MG/DL (0.2-1.0); BLOOD UREA NITROGEN 8 MG/DL (7-18); CALCIUM LEVEL 9.7 MG/DL (8.5-10.1); CARBON DIOXIDE LEVEL 26 MEQ/L (21-32); CHLORIDE LEVEL 108 MEQ/L (98-107); CREATININE FOR GFR 0.76 MG/DL (0.55-1.30); GLOMERULAR FILTRATION RATE > 60.0 (>60); GLUCOSE, FASTING 114 MG/DL (70-100); POTASSIUM SERUM 4.3 MEQ/L (3.5-5.1); SODIUM LEVEL 139 MEQ/L (136-145); TOTAL PROTEIN 7.2 GM/DL (6.4-8.2)
[2020-08-14 13:24] LABS: HCG, SERUM QUALITATIVE NEGATIVE (NEGATIVE)
[2020-08-14 13:35] LABS: HEPATITIS B SURFACE ANTIGEN NEGATIVE (NEGATIVE)
[2020-08-14 14:03] LABS: HIV 1&2 SCREEN CENTAUR NEGATIVE (NEGATIVE)
[2020-08-14 14:50] LABS: HEPATITIS C VIRUS ABY INDEX > 11.0 INDEX (<0.8)
== END ==
LOC: M WUC 09:30
PROVIDERS: ATTEND Family Medicine
DX: F11.11 Opioid abuse, in remission (principal)

== ENCOUNTER → 2020-10-02 | Outpatient (REF) | payer MEDICAID ==
[2020-10-02 13:06] LABS: PERCENT SATURATION 27.2 % (13.2-45.0)
== END ==
LOC: M LAB REF 11:33
PROVIDERS: ATTEND Physician Assistant
DX: D50.9 Iron deficiency anemia, unspecified (principal)

== ENCOUNTER → 2020-11-03 | Outpatient (REF) | payer OTHER ==
[2020-11-03 12:46] LABS: HEMATOCRIT 42.5 % (36.0-47.0); HEMOGLOBIN 13.5 g/dl (12.0-15.5); MEAN CORPUSCULAR HGB CONC 31.8 g/dl (32.0-36.5); MEAN CORPUSCULAR VOLUME 91.4 fl (80.0-96.0); PLATELET COUNT, AUTOMATED 258 10^3/uL (150-450); RED BLOOD COUNT 4.65 10^6/uL (4.00-5.40); WHITE BLOOD COUNT 7.1 10^3/uL (4.0-10.0)
[2020-11-03 13:10] LABS: HEMOGLOBIN A1c 4.4 %
[2020-11-03 14:16] LABS: HCG, SERUM QUANTITATIVE 3260 MIU/ML; HEPATITIS B SURFACE ANTIGEN NEGATIVE (NEGATIVE); HEPATITIS C VIRUS ABY INDEX > 11.0 INDEX (<0.8); HIV 1&2 SCREEN CENTAUR NEGATIVE (NEGATIVE)
== END ==
LOC: M LAB REF 11:58
PROVIDERS: ATTEND Advanced Practice Midwife
DX: Z36.89 Encounter for other specified antenatal screening (principal); Z32.01 Encounter for pregnancy test, result positive

== ENCOUNTER → 2021-01-04 | Outpatient (CLI) | payer OTHER ==
[2021-01-04 13:44] LABS: ALBUMIN 3.7 GM/DL (3.2-5.2); ALT/SGPT 21 U/L (12-78); BILIRUBIN,TOTAL 0.4 MG/DL (0.2-1.0); BLOOD UREA NITROGEN 5 MG/DL (7-18); CALCIUM LEVEL 9.1 MG/DL (8.5-10.1); CARBON DIOXIDE LEVEL 27 MEQ/L (21-32); CHLORIDE LEVEL 109 MEQ/L (98-107); GLOMERULAR FILTRATION RATE > 60.0 (>60); GLUCOSE, FASTING 57 MG/DL (70-100); POTASSIUM SERUM 4.4 MEQ/L (3.5-5.1); SODIUM LEVEL 142 MEQ/L (136-145); TOTAL PROTEIN 7.1 GM/DL (6.4-8.2)
[2021-01-04 13:51] LABS: HEPATITIS B SURFACE ANTIBODY NEGATIVE (POSITIVE)
[2021-01-04 14:03] LABS: HEPATITIS B SURFACE ANTIGEN NEGATIVE (NEGATIVE)
[2021-01-06 16:31] LABS: HEPATITIS A IgG TOTAL Negative (Negative); HEPATITIS B CORE ANTIBODY IGG Negative (Negative); HEPATITIS C QUANTITATION HCV Not Detected IU/mL (.)
== END ==
LOC: M PLALAB 11:40
PROVIDERS: ATTEND Advanced Practice Midwife
DX: O98.411 Viral hepatitis complicating pregnancy, first trimester (principal); Z3A.00 Weeks of gestation of pregnancy not specified

== ENCOUNTER → 2021-03-07 | Outpatient (CLI) | payer OTHER ==
--- NOTE | 2021-03-07 10:54 | REP ---
INDICATION: ANATOMY. COMPARISON: None. TECHNIQUE: Real-time sonographic evaluation of the gravid uterus performed utilizing transabdominal and endovaginal technique. FINDINGS: Estimated gestational age is22 weeks 0 days, EDC 07/11/2021. Today's measurements indicate appropriate growth. Presentation: Cephalic Placenta posterior, grade 1, without evidence of placenta previa. heart rate is recorded at 139 beats per minute. Amniotic fluid is subjectively normal. Closed cervical length is measured at 1.3 cm, with fundal pressure, there is no funneling. Without fundal pressure the cervix measured 2.8-3.0 cm. Biometry chart: BPD: 57 mm, 23 weeks 2 days, 85th percentile. HC: 216 mm, 23 weeks 5 days, over 95th percentile AC: 185 mm, 23 weeks 2 days, 78th percentile Femur length: 39 mm, 22 weeks 4 days, 64th percentile HC to AC ratio: 1.17, normal range 1.04-1.23. Estimated weight: 559g, 91st percentile. anatomy: Cranium: Grossly normal Lateral Ventricles/Choroid Plexus: Not well seen due to position Posterior Fossa/Cerebellum: Not well seen due to position Nose/lips/profile: Not well seen due to position Four chamber heart: Not well seen due to position Right ventricular outflow tract: Grossly normal Left ventricular outflow tract: Not well seen due to position Left-sided stomach: Grossly normal Kidneys: Grossly normal Bladder: Grossly normal Cord Insertion: Grossly normal 3 vessel cord: Grossly normal Spine: Grossly normal IMPRESSION: Viable single intrauterine gestation as above. With fundal pressure, on transvaginal imaging, closed cervical length is 1.3 cm with no funneling. <Electronically signed by Hieu Watson > 03/07/21 [id number]
== END ==
LOC: M WHC 08:01
PROVIDERS: ATTEND Specialist
DX: O98.419 Viral hepatitis complicating pregnancy, unspecified trimester (principal)

== ENCOUNTER → 2021-03-15 | Outpatient (CLI) | payer OTHER | LOC: M PLALAB 09:31 | PROVIDERS: ATTEND Specialist | DX: Z34.82 Encounter for supervision of other normal pregnancy, second trimester (principal) ==

== ENCOUNTER → 2021-04-05 | Outpatient (REF) | payer OTHER ==
[~2021-04-05] MED LIST changes: +CYMB60CA4 PO
[2021-04-05 22:38] LABS: RSV AMPLIFICATION POSITIVE (NEGATIVE)
== END ==
LOC: M LAB REF 21:20
PROVIDERS: ATTEND Physician Assistant
DX: R05.9 Cough, unspecified (principal)

== ENCOUNTER 2021-05-12 11:01 | Emergency (ER) | payer OTHER ==
[~2021-05-12] VITALS: Ht 182.9 cm; Wt 93.3 kg
[~2021-05-12 11:01] MED LIST changes: +FLUO-96 PO; -FLUO20CA20 PO
[2021-05-12] MEDS ORDERED: METH10CO PO (11:13)
[2021-05-12] MEDS ORDERED: ONDA4TAB6 (11:13)
[2021-05-12] MEDS ORDERED: METO10TA2 (11:13)
[2021-05-12] MEDS ORDERED: BUPR1TAB56 (11:13)
[2021-05-12] MEDS ORDERED: NS 1,000 ML IV ONE (12:25)
[2021-05-12 13:42] LABS: BLOOD UREA NITROGEN 7 MG/DL (7-18); CALCIUM LEVEL 8.2 MG/DL (8.5-10.1); CARBON DIOXIDE LEVEL 22 MEQ/L (21-32); CHLORIDE LEVEL 114 MEQ/L (98-107); FREE T4 1.03 NG/DL (0.76-1.46); GLOMERULAR FILTRATION RATE > 60.0 (>60); GLUCOSE, FASTING 82 MG/DL (70-100); IRON (FE) 70 UG/DL (50-170); MAGNESIUM LEVEL 1.8 MG/DL (1.8-2.4); PERCENT SATURATION 20.3 % (13.2-45.0); POTASSIUM SERUM 3.8 MEQ/L (3.5-5.1); SODIUM LEVEL 142 MEQ/L (136-145); TOTAL IRON BINDING CAPACITY 344 UG/DL (250-450)
[2021-05-12 13:44] LABS: BASO % 0.2 % (0.0-1.0); EOS # 0.1 10^3/uL (0.0-0.5); EOS % 0.9 % (0.0-3.0); HEMATOCRIT 37.6 % (36.0-47.0); HEMOGLOBIN 12.1 g/dl (12.0-15.5); LYMPH # 2.7 10^3/uL (1.5-5.0); LYMPH % 25.2 % (24.0-44.0); MEAN CORPUSCULAR HGB CONC 32.2 g/dl (32.0-36.5); MEAN CORPUSCULAR VOLUME 93.1 fl (80.0-96.0); MONO # 0.5 10^3/uL (0.0-0.8); MONO % 4.2 % (2.0-8.0); NEUTROPHILS # 7.4 10^3/uL (1.5-8.5); NEUTROPHILS % 68.9 % (36.0-66.0); PLATELET COUNT, AUTOMATED 200 10^3/uL (150-450); RED BLOOD COUNT 4.04 10^6/uL (4.00-5.40); WHITE BLOOD COUNT 10.7 10^3/uL (4.0-10.0)
[2021-05-12] MEDS ORDERED: CEPH500C PO (15:05)
[2021-05-12 15:47] VITALS: BP 127/61
[2021-05-24] MEDS ORDERED: OXYC1TAB23 PO (16:52)
== END 2021-05-12 15:53 | disposition home or self-care (01) ==
LOC: M ED 11:01
DX: O26.93 Pregnancy related conditions, unspecified, third trimester (principal); R42 Dizziness and giddiness; R55 Syncope and collapse; R82.71 Bacteriuria; Z98.84 Bariatric surgery status; Z79.899 Other long term (current) drug therapy; Z3A.31 31 weeks gestation of pregnancy

== ENCOUNTER 2021-05-19 22:27 | Inpatient (IN) | payer OTHER ==
[~2021-05-19] VITALS: Ht 182.9 cm; Wt 92.0 kg
[~2021-05-19 22:27] MED LIST changes: +BUPR1TAB56; +CEPH500C PO; -FLUO-96 PO; +FLUO20CA20 PO; +METH10CO PO; +METO10TA2; +ONDA4TAB6
[2021-05-19 22:42] VITALS: BP 126/58
--- OUTSIDE RECORDS SUMMARY | 2021-05-19 22:50 | CCD ---
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 Name Role Phone Scordo, M Milana PA Unavailable Unavailable Scordo, M Milana PA Unavailable Unavailable Scordo, M Milana PA Unavailable Unavailable Scordo, M Milana PA Unavailable Unavailable Scordo, M Milana PA Unavailable Unavailable Scordo, M Milana PA Unavailable Unavailable Scordo, M Milana PA Unavailable Unavailable Scordo, M Milana PA Unavailable Unavailable Scordo, M Milana PA Unavailable Unavailable Scordo, M Milana PA Unavailable Unavailable Scordo, M Milana PA Unavailable Unavailable Scordo, M Milana PA Unavailable Unavailable Scordo, M Milana PA Unavailable Unavailable Scordo, M Milana PA Unavailable Unavailable Scordo, M Milaan PA Unavailable Unavailable Scordo, M Milana PA Unavailable Unavailable Scordo, M Milana PA Unavailable Unavailable Scordo, M Milana PA Unavailable Unavailable Scordo, M Milana PA Unavailable Unavailable Scordo, M Milana PA Unavailable Unavailable Scordo, M Milana PA Unavailable Unavailable Scordo, M Milana PA Unavailable Unavailable Scordo, M Milana PA Unavailable Unavailable Scordo, M Milana PA Unavailable Unavailable Scordo, M Milana PA Unavailable Unavailable Scordo, M Milana PA Unavailable Unavailable Scordo, M Milana PA Unavailable Unavailable Scordo, M Milana PA Unavailable Unavailable Scordo, M Milana PA Unavailable Unavailable Scordo, M Milana PA Unavailable Unavailable Scordo, M Milana PA Unavailable Unavailable Scordo, M Milana PA Unavailable Unavailable Scordo, M Milana PA Unavailable Unavailable Scordo, M Milana PA Unavailable Unavailable Scordo, M Milana PA Unavailable Unavailable Scordo, M Milana PA Unavailable Unavailable Scordo, M Milana PA Unavailable Unavailable Scordo, M Milana PA Unavailable Unavailable Scordo, M Milana PA Unavailable Unavailable Scordo, M Milana PA Unavailable Unavailable Scordo, M Milana PA Unavailable Unavailable Scordo, M Milana PA Unavailable Unavailable Scordo, M Milana PA Unavailable Unavailable Scordo, M Milana PA Unavailable Unavailable Scordo, M Milana PA Unavailable Unavailable Scordo, M Milana PA Unavailable Unavailable Scordo, M Milana PA Unavailable Unavailable Re-disclosure Warning The records that you are about to access may contain information from federally-assisted alcohol or drug abuse programs. If such information is present, then the following federally mandated warning applies: This information has been disclosed to you from records protected by federal confidentiality rules (42 CFR part 2). The federal rules prohibit you from making any further disclosure of this information unless further disclosure is expressly permitted by the written consent of the person to whom it pertains or as otherwise permitted by 42 CFR part 2. A general authorization for the release of medical or other information is NOT sufficient for this purpose. The Federal rules restrict any use of the information to criminally investigate or prosecute any alcohol or drug abuse patient.The records that you are about to access may contain highly sensitive health information, the redisclosure of which is protected by Article 27-F of the [facility] Public Health law. If you continue you may have access to information: Regarding HIV / AIDS; Provided by facilities licensed or operated by the [facility] Office of Mental Health; or Provided by the [facility] Office for People With Developmental Disabilities. If such information is present, then the following [facility] mandated warning applies: This information has been disclosed to you from confidential records which are protected by state law. State law prohibits you from making any further disclosure of this information without the specific written consent of the person to whom it pertains, or as otherwise permitted by law. Any unauthorized further disclosure in violation of state law may result in a fine or shelter sentence or both. A general authorization for the release of medical or other information is NOT sufficient authorization for further disc losure. Family History Family Member Name Family Member Gender Family Member Status Date o f Status Description Data Source(s) Unknown Male Problem MEDENT ([facility]) Encounters Encounter Providers Location Date Indications Data Source(s ) Unknown [address] [facility], [facility] [address] 05/16/2021 12:00:00 AM EST eCW1 ([facility]) ( ESTOB) [facility] [address] [place] [address] 05/16/2021 12:00:00 AM EST eCW1 ([facility]) ( ESTOB) [facility] [address] [place] [address] 05/03/2021 12:00:00 AM EST eCW1 ([facility]) [place] [address] [facility] [address] 05/03/2021 12:00:00 AM EST eCW1 ([facility]) [place] [address] [facility] [address] 05/02/2021 12:00:00 AM EST eCW1 ([facility]) [place] [address] [facility] [address] 04/16/2021 12:00:00 AM EDT eCW1 ([facility]) [place] [address] [facility] [address] 04/09/2021 12:00:00 AM EDT eCW1 ([facility]) [place] [address] [facility] [address] 03/27/2021 12:00:00 AM EDT eCW1 ([facility]) [place] [address] [facility] [address] 03/21/2021 12:00:00 AM EDT eCW1 ([facility]) [place] [address] [facility] [address] 03/20/2021 12:00:00 AM EDT eCW1 ([facility]) [place] [address] [facility] [address] 03/12/2021 12:00:00 AM EDT eCW1 ([facility]) [place] [address] [facility] [address] 03/08/2021 12:00:00 AM EDT eCW1 ([facility]) [place] [address] [facility] [address] 03/08/2021 12:00:00 AM EDT eCW1 ([facility]) [place] [address] [facility] [address] 03/07/2021 12:00:00 AM EDT eCW1 ([facility]) (WC ESTOB) [facility] [address] [place] [address] 02/14/2021 12:00:00 AM EDT eCW1 ([facility]) [place] [address] [facility] [address] 02/12/2021 12:00:00 AM EDT eCW1 ([facility]) [place] [address] [facility] [address] 01/29/2021 12:00:00 AM EDT eCW1 ([facility]) [place] [address] [facility] [address] 01/22/2021 12:00:00 AM EDT eCW1 ([facility]) (WC ESTOB) [facility] [address] [place] [address] 01/04/2021 12:00:00 AM EDT eCW1 ([facility]) [place] [address] [facility] [address] 01/03/2021 12:00:00 AM EDT eCW1 ([facility]) [place] [address] [facility] [address] 01/02/2021 12:00:00 AM EDT eCW1 ([facility]) [place] [address] [facility] [address] 12/21/2020 12:00:00 AM EDT eCW1 ([facility]) [place] [address] [facility] [address] 12/13/2020 12:00:00 AM EDT eCW1 ([facility]) (WC ESTOB) [facility] [address] [place] [address] 12/06/2020 12:00:00 AM EDT eCW1 ([facility]) IESHA FriedmanC: [address] [place] [phone], Ph. Attender: Milana [facility] 10/02/2020 12:00:00 AM EDT GEOVANNA ([facility]) Immunizations Vaccine Date Status Description Data Source(s) COVID-19 VACCINE Moderna 06/23/2020 12:00:00 AM EST completed [facility] Vaccine Series Complete: NOThis Data was Submitted to [facility] Via [employer]. Medications Medication Brand Name Start Date Product Form Dose Route Admi nistrative Instructions Pharmacy Instructions Status Indications Reaction Description Data Source(s) Cephalexin 500 MG Oral Capsule CEPHALEXIN 05/12/2021 12:00:00 AM EST capsule 9 TAKE ONE CAPSULE BY MOUTH THREE TIMES A DAY TAKE ONE C APSULE BY MOUTH THREE TIMES A DAY SOLD: 05/14/2021 [facility] 10 mg 05/03/2021 12:00:00 AM EST tablet 60 TAKE ONE TABLET BY MOUTH BEFORE MEALS TWO TIMES A DAY TAKE ONE TABLET BY MOUTH BEFORE MEALS TWO TIMES A DAY SOLD: 05/04/2021 [facility] Metoclopramide 10 MG Oral Tablet [Reglan] Reglan 10 MG Etta n 10 MG 05/03/2021 12:00:00 AM EST 1.0 {tablet_before_meals} active Reglan 10 MG eCW1 ([facility]) Metoclopramide 10 MG Oral Tablet [Reglan] Reglan 10 MG Etta n 10 MG 05/03/2021 12:00:00 AM EST 1.0 {tablet_before_meals} active Reglan 10 MG eCW1 ([facility]) Metoclopramide 10 MG Oral Tablet [Reglan] Reglan 10 MG Etta n 10 MG 05/03/2021 12:00:00 AM EST 1.0 {tablet_before_meals} active Reglan 10 MG eCW1 ([facility]) Metoclopramide 10 MG Oral Tablet [Reglan] Reglan 10 MG Etta n 10 MG 05/03/2021 12:00:00 AM EST 1.0 {tablet_before_meals} active Reglan 10 MG eCW1 ([facility]) 25 mg 04/30/2021 12:00:00 AM EST tablet 21 TAKE ONE TABLET BY MOUTH THREE TIMES A DAY NEEDED FOR NAUSEA TAKE ONE TABLET BY MOUTH THREE TIMES A D AY NEEDED FOR NAUSEA SOLD: 05/04/2021 [facility] 90 mcg/actuation 04/27/2021 12:00:00 AM EST HFA aerosol inha ler 18 INHALE TWO PUFFS BY MOUTH FOUR TIMES A DAY NEEDED INHALE TWO PUFFS BY MOUTH FOUR TIMES A DAY NEEDED SOLD: 05/04/2021 [facility] 875 mg 04/14/2021 12:00:00 AM EDT tablet 20 TAKE ONE TABLET BY MOUTH TWICE A DAY FOR 10 DAYS TAKE ONE TABLET BY MOUTH TWICE A DAY FOR 10 DAYS SOLD: 04/14/2021 [facility] 2 % 04/14/2021 12:00:00 AM EDT cream 45 USE 1 APPLICATION VAGINALLY ONCE DAILY FOR 7 DAYS USE 1 APPLICATION VAGINALLY ONCE DAILY FOR 7 DAYS SOLD : 04/14/2021 [facility] 2.5 mg /3 mL (0.083 %) 04/10/2021 12:00:00 AM EDT solu tion for nebulization 75 INHALE THE CONTENTS OF 1 VIAL BY MOUTH V IA NEBULIZER 4 TIMES A DAY NEEDED INHALE THE CONTENTS OF 1 VIAL BY MOUTH VIA NEBULIZER 4 TIMES A DAY NEEDED SOLD: 04/16/2021 [facility] NEBULIZER AND COMPRESSOR 04/06/2021 12:00:00 AM EDT device 1 USE DIRECTED USE DIRECTED SOLD: 04/06/2021 [facility] 600 mg 04/04/2021 12:00:00 AM EDT tablet 90 TAKE ONE TABLET BY MOUTH THREE TIMES A DAY TAKE ONE TABLET BY MOUTH THREE TIMES A DAY SOLD: 05/14/2021 [facility] 600 mg 04/04/2021 12:00:00 AM EDT tablet 90 TAKE ONE TABLET BY MOUTH THREE TIMES A DAY TAKE ONE TABLET BY MOUTH THREE TIMES A DAY SOLD: 04/06/2021 [facility] 200 mg 03/09/2021 12:00:00 AM EDT capsule 30 INSERT ONE CAPSULE VAGINALLY ONCE A DAY INSERT ONE CAPSULE VAGINALLY ONCE A DAY SOLD: 04/06/2021 [facility] 200 mg 03/09/2021 12:00:00 AM EDT capsule 30 INSERT ONE CAPSULE VAGINALLY ONCE A DAY INSERT ONE CAPSULE VAGINALLY ONCE A DAY SOLD: 05/14/2021 [facility] 200 mg 03/09/2021 12:00:00 AM EDT capsule 30 INSERT ONE CAPSULE VAGINALLY ONCE A DAY INSERT ONE CAPSULE VAGINALLY ONCE A DAY SOLD: 03/09/2021 [facility] Progesterone 200 MG Oral Capsule [Prometrium] Prometri um 200 MG Prometrium 200 MG 03/08/2021 12:00:00 AM EDT active Prometrium 200 MG eCW1 ([facility]) Progesterone 200 MG Oral Capsule [Prometrium] Prometri um 200 MG Prometrium 200 MG 03/08/2021 12:00:00 AM EDT active Prometrium 200 MG eCW1 ([facility]) Progesterone 200 MG Oral Capsule [Prometrium] Prometri um 200 MG Prometrium 200 MG 03/08/2021 12:00:00 AM EDT active Prometrium 200 MG eCW1 ([facility]) Progesterone 200 MG Oral Capsule [Prometrium] Prometri um 200 MG Prometrium 200 MG 03/08/2021 12:00:00 AM EDT active Prometrium 200 MG eCW1 ([facility]) Progesterone 200 MG Oral Capsule [Prometrium] Prometri um 200 MG Prometrium 200 MG 03/08/2021 12:00:00 AM EDT active Prometrium 200 MG eCW1 ([facility]) Progesterone 200 MG Oral Capsule [Prometrium] Prometri um 200 MG Prometrium 200 MG 03/08/2021 12:00:00 AM EDT active Prometrium 200 MG eCW1 ([facility]) Progesterone 200 MG Oral Capsule [Prometrium] Prometri um 200 MG Prometrium 200 MG 03/08/2021 12:00:00 AM EDT active Prometrium 200 MG eCW1 ([facility]) Progesterone 200 MG Oral Capsule [Prometrium] Prometri um 200 MG Prometrium 200 MG 03/08/2021 12:00:00 AM EDT active Prometrium 200 MG eCW1 ([facility]) Progesterone 200 MG Oral Capsule [Prometrium] Prometri um 200 MG Prometrium 200 MG 03/08/2021 12:00:00 AM EDT active eCW1 ([facility]) Progesterone 200 MG Oral Capsule [Prometrium] Prometri um 200 MG Prometrium 200 MG 03/08/2021 12:00:00 AM EDT active Prometrium 200 MG eCW1 ([facility]) Progesterone 200 MG Oral Capsule [Prometrium] Prometri um 200 MG Prometrium 200 MG 03/08/2021 12:00:00 AM EDT active Prometrium 200 MG eCW1 ([facility]) Progesterone 200 MG Oral Capsule [Prometrium] Prometri um 200 MG Prometrium 200 MG 03/08/2021 12:00:00 AM EDT active Prometrium 200 MG eCW1 ([facility]) Progesterone 200 MG Oral Capsule [Prometrium] Prometri um 200 MG Prometrium 200 MG 03/08/2021 12:00:00 AM EDT active Prometrium 200 MG eCW1 ([facility]) Progesterone 200 MG Oral Capsule [Prometrium] Prometri um 200 MG Prometrium 200 MG 03/08/2021 12:00:00 AM EDT active Prometrium 200 MG eCW1 ([facility]) 100 mg 03/08/2021 12:00:00 AM EDT insert 30 INSERT ONE VAGINAL INSERT VAGINALLY DAILY INSERT ONE VAGINAL INSERT VAGINALLY DAILY SOLD: 03/09/2021 [facility] Progesterone 100 MG UNK 03/07/2021 12:00:00 AM EDT suspended Progesterone 100 MG eCW1 ([facility]) Progesterone 100 MG UNK 03/07/2021 12:00:00 AM EDT 1.0 {vagi nal_insert} active Progesterone 100 MG eCW1 ([facility]) Progesterone 100 MG UNK 03/07/2021 12:00:00 AM EDT 1.0 {vagi nal_insert} active Progesterone 100 MG eCW1 ([facility]) Progesterone 100 MG UNK 03/07/2021 12:00:00 AM EDT 1.0 {vagi nal_insert} active Progesterone 100 MG eCW1 ([facility]) Progesterone 100 MG UNK 03/07/2021 12:00:00 AM EDT suspended Progesterone 100 MG eCW1 ([facility]) Progesterone 100 MG UNK 03/07/2021 12:00:00 AM EDT suspended Progesterone 100 MG eCW1 ([facility]) Progesterone 100 MG UNK 03/07/2021 12:00:00 AM EDT 1.0 {vagi nal_insert} active Progesterone 100 MG eCW1 ([facility]) Progesterone 100 MG UNK 03/07/2021 12:00:00 AM EDT 1.0 {vagi nal_insert} active Progesterone 100 MG eCW1 ([facility]) Progesterone 100 MG UNK 03/07/2021 12:00:00 AM EDT 1.0 {vagi nal_insert} active Progesterone 100 MG eCW1 ([facility]) Progesterone 100 MG UNK 03/07/2021 12:00:00 AM EDT 1.0 {vagi nal_insert} active eCW1 ([facility]) Progesterone 100 MG UNK 03/07/2021 12:00:00 AM EDT 1.0 {vagi nal_insert} active Progesterone 100 MG eCW1 ([facility]) Progesterone 100 MG UNK 03/07/2021 12:00:00 AM EDT 1.0 {vagi nal_insert} active Progesterone 100 MG eCW1 ([facility]) Progesterone 100 MG UNK 03/07/2021 12:00:00 AM EDT 1.0 {vagi nal_insert} active Progesterone 100 MG eCW1 ([facility]) Progesterone 100 MG UNK 03/07/2021 12:00:00 AM EDT suspended Progesterone 100 MG eCW1 ([facility]) Progesterone 100 MG UNK 03/07/2021 12:00:00 AM EDT 1.0 {vagi nal_insert} active Progesterone 100 MG eCW1 ([facility]) 100 mg 02/02/2021 12:00:00 AM EDT tablet 30 TAKE ONE TABLET BY MOUTH AT BEDTIME MAXIMUM DAILY DOSE = 1 TABLET TAKE ONE TABLET BY MOUTH AT BEDTIME MAXIMUM DAILY DOSE = 1 TABLET SOLD: 02/05/2021 [facility] 25 mg 02/02/2021 12:00:00 AM EDT tablet 30 TAKE ONE TABLET BY MOUTH EVERY MORNING TAKE ONE TABLET BY MOUTH EVERY MORNING SOLD: 02/05/2021 [facility] 200 mg 02/02/2021 12:00:00 AM EDT tablet sustained-releas e 12 hr 60 TAKE ONE TABLET BY MOUTH TWICE A DAY TAKE ONE TABLET BY MOUTH TWICE A DAY SOLD: 02/05/2021 [facility] 200 mg 02/02/2021 12:00:00 AM EDT tablet sustained-releas e 12 hr 60 TAKE ONE TABLET BY MOUTH TWICE A DAY TAKE ONE TABLET BY MOUTH TWICE A DAY SOLD: 03/07/2021 [facility] 100 mg 02/02/2021 12:00:00 AM EDT tablet 30 TAKE ONE TABLET BY MOUTH AT BEDTIME MAXIMUM DAILY DOSE = 1 TABLET TAKE ONE TABLET BY MOUTH AT BEDTIME MAXIMUM DAILY DOSE = 1 TABLET SOLD: 03/07/2021 [facility] 100 mg 01/15/2021 12:00:00 AM EDT tablet 15 TAKE ONE TABLET BY MOUTH AT BEDTIME TAKE ONE TABLET BY MOUTH AT BEDTIME SOLD: 01/24/2021 [facility] 200 mg 01/15/2021 12:00:00 AM EDT tablet sustained-releas e 12 hr 30 TAKE ONE TABLET BY MOUTH TWO TIMES A DAY TAKE ONE TABLET BY MOUTH TWO TIMES A DAY SOLD: 01/24/2021 [facility] 8.6 mg 01/15/2021 12:00:00 AM EDT tablet 60 TAKE ONE TABLET BY MOUTH TWICE A DAY NEEDED FOR CONSTIPATION TAKE ONE TABLET BY MOUTH TWICE A DAY NEEDED FOR CONSTIPATION SOLD: 04/06/2021 [facility] 8.6 mg 01/15/2021 12:00:00 AM EDT tablet 60 TAKE ONE TABLET BY MOUTH TWICE A DAY NEEDED FOR CONSTIPATION TAKE ONE TABLET BY MOUTH TWICE A DAY NEEDED FOR CONSTIPATION SOLD: 05/14/2021 [facility] 8.6 mg 01/15/2021 12:00:00 AM EDT tablet 60 TAKE ONE TABLET BY MOUTH TWICE A DAY NEEDED FOR CONSTIPATION TAKE ONE TABLET BY MOUTH TWICE A DAY NEEDED FOR CONSTIPATION SOLD: 01/24/2021 [facility] 600 mg 01/15/2021 12:00:00 AM EDT tablet 90 TAKE ONE TABLET BY MOUTH THREE TIMES A DAY TAKE ONE TABLET BY MOUTH THREE TIMES A DAY SOLD: 01/24/2021 [facility] 8.6 mg 01/15/2021 12:00:00 AM EDT tablet 60 TAKE ONE TABLET BY MOUTH TWICE A DAY NEEDED FOR CONSTIPATION TAKE ONE TABLET BY MOUTH TWICE A DAY NEEDED FOR CONSTIPATION SOLD: 03/07/2021 [facility] 600 mg 01/15/2021 12:00:00 AM EDT tablet 90 TAKE ONE TABLET BY MOUTH THREE TIMES A DAY TAKE ONE TABLET BY MOUTH THREE TIMES A DAY SOLD: 03/07/2021 [facility] 2 % 12/25/2020 12:00:00 AM EDT cream 45 USE VAGINALLY DAILY DIRECTED FOR 7 DAYS USE VAGINALLY DAILY DIRECTED FOR 7 DAYS SOLD: 12/25/2020 [facility] Monistat 7 Complete Therapy 100-2 MG Monistat 7 Complete The rapy 100-2 MG 12/24/2020 12:00:00 AM EDT active Monistat 7 Complete Therapy 100- 2 MG eCW1 ([facility]) Monistat 7 Complete Therapy 100-2 MG Monistat 7 Complete The rapy 100-2 MG 12/24/2020 12:00:00 AM EDT active Monistat 7 Complete Therapy 100- 2 MG eCW1 ([facility]) Monistat 7 Complete Therapy 100-2 MG Monistat 7 Complete The rapy 100-2 MG 12/24/2020 12:00:00 AM EDT active Monistat 7 Complete Therapy 100- 2 MG eCW1 ([facility]) Monistat 7 Complete Therapy 100-2 MG Monistat 7 Complete The rapy 100-2 MG 12/24/2020 12:00:00 AM EDT active Monistat 7 Complete Therapy 100- 2 MG eCW1 ([facility]) Monistat 7 Complete Therapy 100-2 MG Monistat 7 Complete The rapy 100-2 MG 12/24/2020 12:00:00 AM EDT active Monistat 7 Complete Therapy 100- 2 MG eCW1 ([facility]) Monistat 7 Complete Therapy 100-2 MG Monistat 7 Complete The rapy 100-2 MG 12/24/2020 12:00:00 AM EDT active Monistat 7 Complete Therapy 100- 2 MG eCW1 ([facility]) Monistat 7 Complete Therapy 100-2 MG Monistat 7 Complete The rapy 100-2 MG 12/24/2020 12:00:00 AM EDT active Monistat 7 Complete Therapy 100- 2 MG eCW1 ([facility]) Cephalexin 500 MG Oral Capsule CEPHALEXIN 12/19/2020 12:00:00 AM EDT capsule 21 TAKE ONE CAPSULE BY MOUTH THREE TIMES A DAY FOR 7 DAYS TAKE ONE CAPSULE BY MOUTH THREE TIMES A DAY FOR 7 DAYS SOLD: 12/19/2020 [facility] 100 mg 12/12/2020 12:00:00 AM EDT tablet 30 TAKE ONE TABLET BY MOUTH DAILY AT BEDTIME TAKE ONE TABLET BY MOUTH DAILY AT BEDTIME SOLD: 12/12/2020 [facility] Promethazine Hydrochloride 25 MG Oral Tablet Promethaz ine HCl 25 MG Promethazine HCl 25 MG 12/06/2020 12:00:00 AM EDT 1.0 {tablet_as_needed} suspended Promethazine HCl 25 MG eCW1 ([facility]) Promethazine Hydrochloride 25 MG Oral Tablet Promethaz ine HCl 25 MG Promethazine HCl 25 MG 12/06/2020 12:00:00 AM EDT 1.0 {tablet_as_needed} active Promethazine HCl 25 MG eCW1 ([facility]) Promethazine Hydrochloride 25 MG Oral Tablet Promethaz ine HCl 25 MG Promethazine HCl 25 MG 12/06/2020 12:00:00 AM EDT 1.0 {tablet_as_needed} active Promethazine HCl 25 MG eCW1 ([facility]) Promethazine Hydrochloride 25 MG Oral Tablet Promethaz ine HCl 25 MG Promethazine HCl 25 MG 12/06/2020 12:00:00 AM EDT 1.0 {tablet_as_needed} active Promethazine HCl 25 MG eCW1 ([facility]) Promethazine Hydrochloride 25 MG Oral Tablet Promethaz ine HCl 25 MG Promethazine HCl 25 MG 12/06/2020 12:00:00 AM EDT 1.0 {tablet_as_needed} active Promethazine HCl 25 MG eCW1 ([facility]) Promethazine Hydrochloride 25 MG Oral Tablet Promethaz ine HCl 25 MG Promethazine HCl 25 MG 12/06/2020 12:00:00 AM EDT 1.0 {tablet_as_needed} active Promethazine HCl 25 MG eCW1 ([facility]) Promethazine Hydrochloride 25 MG Oral Tablet Promethaz ine HCl 25 MG Promethazine HCl 25 MG 12/06/2020 12:00:00 AM EDT 1.0 {tablet_as_needed} active Promethazine HCl 25 MG eCW1 ([facility]) Promethazine Hydrochloride 25 MG Oral Tablet Promethaz ine HCl 25 MG Promethazine HCl 25 MG 12/06/2020 12:00:00 AM EDT 1.0 {tablet_as_needed} suspended Promethazine HCl 25 MG eCW1 ([facility]) Promethazine Hydrochloride 25 MG Oral Tablet Promethaz ine HCl 25 MG Promethazine HCl 25 MG 12/06/2020 12:00:00 AM EDT 1.0 {tablet_as_needed} active Promethazine HCl 25 MG eCW1 ([facility]) Promethazine Hydrochloride 25 MG Oral Tablet Promethaz ine HCl 25 MG Promethazine HCl 25 MG 12/06/2020 12:00:00 AM EDT 1.0 {tablet_as_needed} active Promethazine HCl 25 MG eCW1 ([facility]) Promethazine Hydrochloride 25 MG Oral Tablet Promethaz ine HCl 25 MG Promethazine HCl 25 MG 12/06/2020 12:00:00 AM EDT 1.0 {tablet_as_needed} active Promethazine HCl 25 MG eCW1 ([facility]) Promethazine Hydrochloride 25 MG Oral Tablet Promethaz ine HCl 25 MG Promethazine HCl 25 MG 12/06/2020 12:00:00 AM EDT 1.0 {tablet_as_needed} active eCW1 ([facility]) Promethazine Hydrochloride 25 MG Oral Tablet Promethaz ine HCl 25 MG Promethazine HCl 25 MG 12/06/2020 12:00:00 AM EDT 1.0 {tablet_as_needed} active Promethazine HCl 25 MG eCW1 ([facility]) Promethazine Hydrochloride 25 MG Oral Tablet Promethaz ine HCl 25 MG Promethazine HCl 25 MG 12/06/2020 12:00:00 AM EDT 1.0 {tablet_as_needed} active Promethazine HCl 25 MG eCW1 ([facility]) Promethazine Hydrochloride 25 MG Oral Tablet Promethaz ine HCl 25 MG Promethazine HCl 25 MG 12/06/2020 12:00:00 AM EDT 1.0 {tablet_as_needed} suspended Promethazine HCl 25 MG eCW1 ([facility]) Promethazine Hydrochloride 25 MG Oral Tablet Promethaz ine HCl 25 MG Promethazine HCl 25 MG 12/06/2020 12:00:00 AM EDT 1.0 {tablet_as_needed} active Promethazine HCl 25 MG eCW1 ([facility]) Promethazine Hydrochloride 25 MG Oral Tablet Promethaz ine HCl 25 MG Promethazine HCl 25 MG 12/06/2020 12:00:00 AM EDT 1.0 {tablet_as_needed} active Promethazine HCl 25 MG eCW1 ([facility]) Promethazine Hydrochloride 25 MG Oral Tablet Promethaz ine HCl 25 MG Promethazine HCl 25 MG 12/06/2020 12:00:00 AM EDT 1.0 {tablet_as_needed} active Promethazine HCl 25 MG eCW1 ([facility]) Promethazine Hydrochloride 25 MG Oral Tablet Promethaz ine HCl 25 MG Promethazine HCl 25 MG 12/06/2020 12:00:00 AM EDT 1.0 {tablet_as_needed} active Promethazine HCl 25 MG eCW1 ([facility]) Promethazine Hydrochloride 25 MG Oral Tablet Promethaz ine HCl 25 MG Promethazine HCl 25 MG 12/06/2020 12:00:00 AM EDT 1.0 {tablet_as_needed} active Promethazine HCl 25 MG eCW1 ([facility]) Promethazine Hydrochloride 25 MG Oral Tablet Promethaz ine HCl 25 MG Promethazine HCl 25 MG 12/06/2020 12:00:00 AM EDT 1.0 {tablet_as_needed} active Promethazine HCl 25 MG eCW1 ([facility]) Promethazine Hydrochloride 25 MG Oral Tablet Promethaz ine HCl 25 MG Promethazine HCl 25 MG 12/06/2020 12:00:00 AM EDT 1.0 {tablet_as_needed} active Promethazine HCl 25 MG eCW1 ([facility]) Promethazine Hydrochloride 25 MG Oral Tablet Promethaz ine HCl 25 MG Promethazine HCl 25 MG 12/06/2020 12:00:00 AM EDT 1.0 {tablet_as_needed} active Promethazine HCl 25 MG eCW1 ([facility]) Promethazine Hydrochloride 25 MG Oral Tablet Promethaz ine HCl 25 MG Promethazine HCl 25 MG 12/06/2020 12:00:00 AM EDT 1.0 {tablet_as_needed} suspended Promethazine HCl 25 MG eCW1 ([facility]) 25 mg 12/04/2020 12:00:00 AM EDT tablet 15 TAKE 1 TABLET BY MOUTH EVERY MORNING FOR 14 DAYS THEN 1 TWO TIMES A DAY TAKE 1 TABLET BY MOUTH EVERY MORNING FOR 14 DAYS THEN 1 TWO TIMES A DAY SOLD: 12/09/2020 [facility] 24 HR Bupropion Hydrochloride 150 MG Extended Release Oral T ablet BUPROPION HCL 11/30/2020 12:00:00 AM EDT tablet extended release 24 hr 60 TAKE ONE TABLET BY MOUTH EVERY MORNING TAKE ONE TABLET BY MOUTH EVERY MORNING SOLD: 12/09/2020 [facility] 100 mg 11/28/2020 12:00:00 AM EDT tablet 8 TAKE ONE-HALF TABLET BY MOUTH AT BEDTIME TAKE ONE-HALF TABLET BY MOUTH AT BEDTIME SOLD: 11/29/2020 [facility] 600 mg 11/23/2020 12:00:00 AM EDT tablet 90 TAKE ONE TABLET BY MOUTH THREE TIMES A DAY MAXIMUM DAILY DOSE = 3 TABLETS TAKE ONE TABLET BY MOUTH THREE TIMES A DAY MAXIMUM DAILY DOSE = 3 TABLETS SOLD: 11/29/2020 [facility] 24 HR Bupropion Hydrochloride 300 MG Extended Release Oral T ablet BUPROPION HCL 11/16/2020 12:00:00 AM EDT tablet extended release 24 hr 30 TAKE ONE TABLET BY MOUTH EVERY MORNING TAKE ONE TABLET BY MOUTH EVERY MORNING SOLD: 11/29/2020 [facility] Ondansetron 4 MG Disintegrating Oral Tablet ONDANSETRON 11/15/2020 12:00:00 AM EDT tablet,disintegrating 30 DISSOLVE 1 TABLET IN MOUTH EVERY 6 HOURS NEEDED FOR NAUSEA DISSOLVE 1 TABLET IN MOUTH EVERY 6 HOURS NEEDED FOR NAUSEA SOLD: 05/04/2021 [facility] Ondansetron 4 MG Disintegrating Oral Tablet ONDANSETRON 11/15/2020 12:00:00 AM EDT tablet,disintegrating 30 DISSOLVE 1 TABLET IN MOUTH EVERY 6 HOURS NEEDED FOR NAUSEA DISSOLVE 1 TABLET IN MOUTH EVERY 6 HOURS NEEDED FOR NAUSEA SOLD: 11/15/2020 [facility] 25 mg 11/08/2020 12:00:00 AM EDT tablet 60 TAKE 1TAB.BY MOUTH EVERY MORNING FOR 2 WEEKS THEN 1TAB 2 TIMES A DAY TAKE 1TAB.BY MOUTH EVERY MORNING FOR 2 W EEKS THEN 1TAB 2 TIMES A DAY SOLD: 11/08/2020 [facility] 2 % 10/28/2020 12:00:00 AM EDT cream 45 1 APPLICATION DIRECTED VAGINALLY ONCE DAILY FOR 7 DAYS 1 APPLICATION DIRECTED VAGINALLY ONCE DAILY FOR 7 D AYS SOLD: 10/28/2020 [facility] 875 mg 10/28/2020 12:00:00 AM EDT tablet 20 TAKE ONE TABLET BY MOUTH TWICE A DAY FOR 10 DAYS TAKE ONE TABLET BY MOUTH TWICE A DAY FOR 10 DAYS SOLD: 10/28/2020 [facility] 600 mg 10/26/2020 12:00:00 AM EDT tablet 90 TAKE ONE TABLET BY MOUTH THREE TIMES A DAY TAKE ONE TABLET BY MOUTH THREE TIMES A DAY SOLD: 10/27/2020 [facility] 27 mg iron- 1 mg 10/25/2020 12:00:00 AM EDT tablet 30 TAKE ONE TABLET BY MOUTH EVERY DAY TAKE ONE TABLET BY MOUTH EVERY DAY SOLD: 11/29/2020 [facility] 27 mg iron- 1 mg 10/25/2020 12:00:00 AM EDT tablet 30 TAKE ONE TABLET BY MOUTH EVERY DAY TAKE ONE TABLET BY MOUTH EVERY DAY SOLD: 10/27/2020 [facility] 24 HR Bupropion Hydrochloride 300 MG Extended Release Oral T ablet BUPROPION HCL 10/21/2020 12:00:00 AM EDT tablet extended release 24 hr 30 TAKE ONE TABLET BY MOUTH EVERY MORNING TAKE ONE TABLET BY MOUTH EVERY MORNING SOLD: 10/27/2020 [facility] 325 mg (65 mg iron) 10/17/2020 12:00:00 AM EDT tablet, delayed release (DR/EC) 90 TAKE ONE TABLET BY MOUTH THREE TIMES A D AY TAKE ONE TABLET BY MOUTH THREE TIMES A DAY SOLD: 10/27/2020 [facility] 24 HR Bupropion Hydrochloride 150 MG Extended Release Oral T ablet BUPROPION HCL 10/10/2020 12:00:00 AM EDT tablet extended release 24 hr 60 TAKE ONE TABLET BY MOUTH EVERY MORNING TAKE ONE TABLET BY MOUTH EVERY MORNING SOLD: 10/16/2020 [facility] 50 mcg/actuation 10/03/2020 12:00:00 AM EDT spray,suspension 16 SPRAY ONE SPRAY IN EACH NOSTRIL EVERY DAY SPRAY ONE SPRAY IN EACH NOSTRIL EVERY DAY SOLD: 10/04/2020 [facility] 10 mg 10/02/2020 12:00:00 AM EDT tablet 30 TAKE ONE TABLET BY MOUTH EVERY DAY TAKE ONE TABLET BY MOUTH EVERY DAY SOLD: 10/04/2020 [facility] 800 mg 09/28/2020 12:00:00 AM EDT tablet 21 TAKE ONE TABLET BY MOUTH THREE TIMES A DAY FOR 7 DAYS TAKE ONE TABLET BY MOUTH THREE TIMES A DAY FOR 7 DAYS SOLD: 09/29/2020 [facility] 875 mg 09/28/2020 12:00:00 AM EDT tablet 20 TAKE ONE TABLET BY MOUTH EVERY 12 HOURS FOR 10 DAYS TAKE ONE TABLET BY MOUTH EVERY 12 HOURS FOR 10 DAYS SO LD: 09/29/2020 [facility] gabapentin 300 MG Oral Capsule gabapenti n 300 mg capsule TAKE ONE CAPSULE BY MOUTH THREE TIMES DAILY gabapentin 300 mg capsule TAKE ONE CAPSU LE BY MOUTH THREE TIMES DAILY completed jody pentin 300 MG Oral Capsule GEOVANNA ([facility]) Prazosin 2 MG Oral Capsule prazosin 2 mg capsule TAKE TWO CAPSULES BY MOUTH AT BEDTIME prazosin 2 mg capsule TAKE TWO CAPSULES BY MOUTH AT BEDTIME completed prazosin 2 MG Oral Capsule ATHEN A ([facility]) Famotidine 20 MG Oral Tablet famotidine 20 mg tablet TAKE ONE TABLET BY MOUTH TWICE DAILY NEEDED famotidine 20 mg tablet TAKE ONE TABLET BY MOUTH TWICE DAILY NEEDED completed famoti dine 20 MG Oral Tablet GEOVANNA ([facility]) Doxycycline Monohydrate 100 MG Oral Caps ule doxycycline monohydrate 100 mg capsule TAKE ONE CAPSULE BY MOUTH TWICE DAILY FOR FOURTEEN DAYS doxycycline monohydrate 100 mg capsule TAKE ONE CAPSULE BY MOUTH TWICE DAILY FOR FOURTEEN DAYS completed doxycycline mono hydrate 100 MG Oral Capsule GEOVANNA ([facility]) duloxetine 30 MG Delayed Release Oral Ca psule duloxetine 30 mg capsule,delayed release TAKE ONE CAPSULE BY MOUTH ONCE DAILY duloxetine 30 mg capsule,delayed release TAKE ONE CAPSULE BY MOUTH ONCE DAILY completed duloxetine 30 MG Delayed Release Oral Capsule GEOVANNA ([facility]) pantoprazole 20 MG Delayed Release Oral Tablet pantoprazole 20 mg tablet,delayed release TAKE ONE TABLET BY MOUTH ONCE DAILY pantoprazole 20 mg tablet,delayed release TAKE ONE TABLET BY MOUTH ONCE DAILY completed pantoprazole 20 MG Delayed Release Oral Tablet [place] ([facility]) Oxybutynin chloride 5 MG Oral Tablet oxy butynin chloride 5 mg tablet TAKE 1/2 TABLET BY MOUTH ONCE DAILY FOR 7 DAYS THEN TAKE 1/2 TABLET BY MOUTH TWICE DAILY oxybutynin chloride 5 mg tablet TAKE 1/2 TABLET BY MOUTH ONCE DAILY FOR 7 DAYS THEN TAKE 1/2 TABLET BY MOUTH TWICE DAILY completed oxybutynin chloride 5 MG Oral Tablet GEOVANNA ([facility]) Fluconazole 150 MG Oral Tablet fluconazo le 150 mg tablet TAKE ONE TABLET BY MOUTH ONCE fluconazole 150 mg tablet TAKE ONE TABLET BY MOUTH ONCE completed fluconazole 150 MG Oral Tablet A THEN ([facility]) duloxetine 60 MG Delayed Release Oral Ca psule duloxetine 60 mg capsule,delayed release TAKE ONE CAPSULE BY MOUTH ONCE DAILY duloxetine 60 mg capsule,delayed release TAKE ONE CAPSULE BY MOUTH ONCE DAILY completed duloxetine 60 MG Delayed Release Oral Capsule [place] ([facility]) buspirone hydrochloride 15 MG Oral Table t buspirone 15 mg tablet TAKE ONE TABLET BY MOUTH FOUR TIMES DAILY buspirone 15 mg tablet TAKE ONE TABLET B Y MOUTH FOUR TIMES DAILY completed buspirone hydrochloride 15 MG Oral Tablet GEOVANNA ([facility]) Calcium Carbonate 500 MG Chewable Tablet Calcium Antacid 200 mg calcium (500 mg) chewable tablet TAKE 2 TO 3 TABLETS BY MOUTH EVERY TWELVE HOURS NEEDED FOR heartburn MAX DAILY DOSE SIX TABLETS Calcium Antacid 200 mg calcium (500 mg) chewable tablet TAKE 2 TO 3 TABLETS BY MOUTH EVERY TWELVE HOURS NEEDED FOR heartburn MAX DAILY DOSE SIX TABLETS c ompleted calcium carbonate 500 MG Chewable Tablet [place] ([facility]) Insurance Providers Payer name Policy type / Coverage type Policy ID Covered republican ID Covered republican's relationship to nichols Policy Nichols Plan Information MVP Preferred (Hmo) Health Maintenance Organization (HMO) [id number] Family Dependent [id number] [place] ([place] Workers Compensation [id number] Self [id number] [place] Workers Compensation [id number] Self [id number] [place] Workers Compensation [id number] Self [id number] MEDICAID [id number] SP [id number] Medicaid [place] Medigap Part B [id number] Self [id number] [facility] COMMUNITY [place] [facility] [id number] SP [id number] [facility] COMMUNITY PLAN [facility] [id number] SP [id number] O BLUE [id number] SP [id number] BLUE CROSS [place]IAN[place]I PLAN [id number] SP [id number] O BLUE [id number] SP [id number] [employer] COMMUNITY PLAN [facility] [id number] SP [id number] [facility] [id number] SP [id number] MEDICAID [id number] SP [id number] BLUE CROSS BIAN[place]I PLAN [id number] SP [id number] [facility] I [id number] Self [id number] [facility] I [id number] Self [id number] [facility] MEDICAID [id number] Lien [id number] [facility] MEDICAID [id number] Lien [id number] Medicaid S [id number] S [id number] Managed Care - Community Plan [facility] P [id number] S [id number] Managed Care - Community Plan [facility] P [id number] S [id number] U[place] [id number] SELF [id number] [facility] MEDICAID [id number] Lien [id number] Medicaid S [id number] S [id number] Managed Care - Community Plan [facility] P [id number] S [id number] [facility] Community Plan Commercial [id number] Self [id number] Medicaid S [id number] S [id number] [facility] Health Maintenance Organization (HMO) [id number] Self [employer] COMMUNITY PLAN MCDO [id number] SP [id number] [employer] COMMUNITY PLAN MCDHMO [id number] SP [id number] UNHC AMERICHOICE XIX -HMO [id number] 18 [id number] [facility] Community Plan Health Maintenance Organization (HMO) [id number] Self Managed Care BCBS O [id number] S [id number] [employer] [id number] SP WC [id number] [facility] COMMUNITY PLAN MCDO [id number] SP [id number] BLUE CROSS BLUE SHIELD-PHYSICIAN [id number] 18 [id number] BLUE CROSS BLUE SHIELD-O/P [id number] 18 [id number] BLUE CROSS BIANCHI PLAN UNAVAILABLE UNAVAILABLE [facility] COMMUNITY PLAN MCDO [id number] SP [id number] Managed Care - [facility] Community Plan P [id number] S [id number] Managed Care - Community Plan [facility] P [id number] S [id number] ANSI-Commercial [id number] ANSI-Medicaid [id number] ANSI-Commercial [id number] ANSI-Commercial [id number] ANSI-Medicaid [id number] [facility] Community Plan Commercial [id number] Self [id number] [facility] [place]ITY [place] [id number] 18 [id number] MEDICAID [id number] SP [id number] [facility] Community [facility] Commercial [id number] Self [id number] [place] ([place]) Workers Compensation [id number] Self [id number] [facility] Part B [id number] Family Dependent [id number] [place] ([place]) Workers Compensation [id number] Self [id number] [facility] Part B [id number] Family Dependent [id number] [place] ([place]) Workers Compensation [id number] Self [id number] [facility] Part B [id number] Family Dependent [id number] [facility] O [id number] S [id number] [facility] Health Maintenance Organization (HMO) [id number] Self [id number] [facility] MEDICAID PI PI MEDICAID [id number] SELF [id number] [facility] OFFICE OF MENTAL HEALTH [id number] S [id number] Medicaid S [id number] S [id number] Managed Care [facility] O [id number] S [id number] Medicaid Dental O [id number] S [id number] [facility] Health Maintenance Organization (HMO) [id number] Self [id number] [facility](MCAID) O [id number] S [id number] [facility]CAID) O [id number] S [id number] Problems, Conditions, and Diagnoses Code Display Name Description Problem Type Effective Dates Data Source(s) F11.20 [id number] Opioid dependence Problem 05/16/2021 12:00:0 0 AM EST eCW1 ([facility]) B18.2 [id number] Hep C w/o coma, chronic Problem 02/12/2021 1 2:00:00 AM EDT eC1 ([facility]) Z34.80 care Supervision of other normal P obilem 11/27/2020 12:00:00 AM EDT eC1 ([facility]) [id number] Methadone dependence Methadone Dependence Problem 10/02/2020 12:00:00 AM EDT [place] ([facility]) [id number] Asthma Asthma Problem 03/30/2020 05:37:25 PM ED T [place] ([facility]) [id number] Depressive disorder Depressive Disorder Problem 1 05:37:25 PM EDT GEOVANNA ([facility]) [id number] Sciatica Sciatica Problem 09/05/2017 12:0 0:00 AM EDT - 10/02/2020 12:00:00 AM EDT GEOVANNA ([facility]) [id number] Migraine without aura Migraine without Aura Problem 09/05/2017 12:00:00 AM EDT - 10/02/2020 12:00:00 AM EDT GEOV[facility]NA ([facility]) [id number] Finding of head and neck region Finding of Head and Neck Region Problem 07/01/2017 12:00:00 AM EST - 10/02/2020 12:00:00 AM ED T GEOVANNA ([facility]) [id number] Procedure by method Procedure by Method Problem 1 07/31/2016 12:00:00 AM EST - 10/02/2020 12:00:00 AM EDT GEOVANNA ([facility]) [id number] Susu infection of genital region Cand yolanda Infection of Genital Region Problem 05/30/2017 12:00:00 AM EST - 10/02/2020 12:00:00 AM EDT GEOVANNA ([facility]) [id number] History and physical examination, admini strative History and Physical Examination, Administrative Problem 09/03/2016 12:00:00 AM EDT - 10/02/2020 12:00:00 AM EDT GEOVANNA ([facility]) [id number] Finding of neck region Finding of Neck Region Problem 07/14/2013 12:00:00 AM EST - 10/02/2020 12:00:00 AM EDT GEOVANNA ([facility]) [id number] Urinary tract infectious disease Urinary Tract I nfectious Disease Problem 07/14/2013 12:00:00 AM EST - 10/02/2020 12:00:00 AM ED T GEOVANNA ([facility]) [id number] SNOMED CT Concept SNOMED CT Concept Problem 04/28 12:00:00 AM EST - 10/02/2020 12:00:00 AM EDT GEOVANNA ([facility]) [id number] General finding of observation of patien t General Finding of Observation of Patient Problem 04/28/2013 12:00:00 AM EST - 10/02/2020 12:00:00 AM EDT GEOVANNA ([facility]) [id number] SNOMED CT Concept SNOMED CT Concept Problem 10/02 12:00:00 AM EDT GEOVANNA ([facility]) [id number] Abnormal cytology findings Abnormal Cytology Findings Problem 10/02/2020 12:00:00 AM EDT GEOVANNA ([facility]) Surgeries/Procedures No Information Results ID Date Data Source [id number] 04/05/2021 07:00:00 PM EDT [facility] Name Value Range Interpretation Code Description Data Loni rce(s) Supporting Document(s) SARS coronavirus 2 RNA [Presence] in Res piratory specimen by RAJ with probe detection NEGATIVE [facility] This lab was ordered by [facility] a nd reported by [facility]. ID Date Data Source HEPATITIS B SURFACE ANTIGEN 01/04/2021 12:00:00 AM EDT eCW1 ([facility]) Name Value Range Interpretation Code Description Data Loni rce(s) Supporting Document(s) NEGATIVE NEGATIVE HEPATITIS B SURFACE ANTIG EN eCW1 ([facility]) ID Date Data Source HEPATITIS B SURFACE ANTIBODY 01/04/2021 12:00:00 AM EDT eCW1 ([facility]) Name Value Range Interpretation Code Description Data Loni rce(s) Supporting Document(s) NEGATIVE POSITIVE HEPATITIS B SURFACE ANTIB RAH eCW1 ([facility]) ID Date Data Source Comprehensive Metabolic Profile (CMP) 01/04/2021 12:00:00 AM EDT eCW1 ([facility]) Name Value Range Interpretation Code Description Data Loni rce(s) Supporting Document(s) 0.40 0.55-1.30 CREATININE FOR GFR eCW1 ([facility]) 5 7-18 BLOOD UREA NITROGEN eCW1 ([facility]) > 60.0 >60 GLOMERULAR FILTRATION RATE eCW 1 ([facility]) 57 70-100 GLUCOSE, FASTING eCW1 ([facility]) 142 136-145 SODIUM LEVEL eCW1 ([facility]) 109 98-107 CHLORIDE LEVEL eCW1 ([facility]) 4.4 3.5-5.1 POTASSIUM SERUM eCW1 ([facility]) 9.1 8.5-10.1 CALCIUM LEVEL eCW1 ([facility]) 21 12-78 ALT/SGPT eCW1 ([facility]) 27 21-32 CARBON DIOXIDE LEVEL eCW1 ([facility]) 7 7-37 AST/SGOT eCW1 ([facility]) 0.4 0.2-1.0 BILIRUBIN,TOTAL eCW1 ([facility]) 7.1 6.4-8.2 TOTAL PROTEIN eCW1 ([facility]) 63 45-117 ALKALINE PHOSPHATASE eCW1 ([facility]) 3.7 3.2-5.2 ALBUMIN eCW1 ([facility]) 1.1 1.2-2.2 ALBUMIN/GLOBULIN RATIO eCW1 ([facility]) Procedure Social History Code Duration Value Status Description Data Source(s ) Smoking 05/16/2021 12:00:00 AM EST Current Smoker completed Curre nt Smoker eCW1 ([facility]) Smoking 05/16/2021 12:00:00 AM EST Current Smoker completed Curre nt Smoker eCW1 ([facility]) Smoking 05/03/2021 12:00:00 AM EST Current Smoker completed Curre nt Smoker eCW1 ([facility]) Smoking 05/03/2021 12:00:00 AM EST Current Smoker completed Curre nt Smoker eCW1 ([facility]) Smoking 03/12/2021 12:00:00 AM EDT Current Smoker completed Curre nt Smoker eCW1 ([facility]) Smoking 03/12/2021 12:00:00 AM EDT Current Smoker completed Curre nt Smoker eCW1 ([facility]) Smoking 03/12/2021 12:00:00 AM EDT Current Smoker completed Curre nt Smoker eCW1 ([facility]) Smoking 03/12/2021 12:00:00 AM EDT Current Smoker completed Curre nt Smoker eCW1 ([facility]) Smoking 03/12/2021 12:00:00 AM EDT Current Smoker completed Curre nt Smoker eCW1 ([facility]) Smoking 03/12/2021 12:00:00 AM EDT Current Smoker completed Curre nt Smoker eCW1 ([facility]) Smoking 03/12/2021 12:00:00 AM EDT Current Smoker completed Curre nt Smoker eCW1 ([facility]) Smoking 03/12/2021 12:00:00 AM EDT Current Smoker completed Curre nt Smoker eCW1 ([facility]) Smoking 03/12/2021 12:00:00 AM EDT Current Smoker completed Curre nt Smoker eCW1 ([facility]) Smoking 02/14/2021 12:00:00 AM EDT Current Smoker completed Curre nt Smoker eCW1 ([facility]) Smoking 02/14/2021 12:00:00 AM EDT Current Smoker completed Curre nt Smoker eCW1 ([facility]) Smoking 02/14/2021 12:00:00 AM EDT Current Smoker completed Curre nt Smoker eCW1 ([facility]) Vital Signs ID Date Data Source UNK Name Value Range Interpretation Code Description Data Source(s) Body weight 200 [lb_av] 200 [lb_av] eCW1 ([facility]) Body weight 90.72 kg 90.72 kg eCW1 ([facility]) Body height 70.5 [in_i] 70.5 [in_i] eCW1 ([facility]) Body mass index (BMI) [Ratio] 28.291 kg/m2 28.2 91 kg/m2 eCW1 ([facility]) Systolic blood pressure 106 mm[Hg] 106 mm[Hg] e CW1 ([facility]) Diastolic blood pressure 60 mm[Hg] 60 mm[Hg] eCW1 ([facility]) Body weight 205 [lb_av] 205 [lb_av] eCW1 ([facility]) Body height 70.5 [in_i] 70.5 [in_i] eCW1 ([facility]) Body mass index (BMI) [Ratio] 28.999 kg/m2 28.9 99 kg/m2 eCW1 ([facility]) Systolic blood pressure 126 mm[Hg] 126 mm[Hg] e CW1 ([facility]) Diastolic blood pressure 62 mm[Hg] 62 mm[Hg] eCW1 ([facility]) Body weight 191.8 [lb_av] 191.8 [lb_av] eCW1 ([facility]) Body height 70.5 [in_i] 70.5 [in_i] eCW1 ([facility]) Body mass index (BMI) [Ratio] 27.131 kg/m2 27.1 31 kg/m2 eCW1 ([facility]) Systolic blood pressure 118 mm[Hg] 118 mm[Hg] e CW1 ([facility]) Diastolic blood pressure 68 mm[Hg] 68 mm[Hg] eCW1 ([facility]) Body weight 188 [lb_av] 188 [lb_av] eCW1 ([facility]) Diastolic blood pressure 74 mm[Hg] 74 mm[Hg] eCW1 ([facility]) Body weight 85.28 kg 85.28 kg eCW1 ([facility]) Body height 70.5 [in_i] 70.5 [in_i] eCW1 ([facility]) Body mass index (BMI) [Ratio] 26.594 kg/m2 26.5 94 kg/m2 eCW1 ([facility]) Systolic blood pressure 122 mm[Hg] 122 mm[Hg] e CW1 ([facility]) Body weight 198 [lb_av] 198 [lb_av] eCW1 ([facility]) Body height 70.5 [in_i] 70.5 [in_i] eCW1 ([facility]) Body mass index (BMI) [Ratio] 28.008 kg/m2 28.0 08 kg/m2 eCW1 ([facility]) Systolic blood pressure 124 mm[Hg] 124 mm[Hg] e CW1 ([facility]) Diastolic blood pressure 72 mm[Hg] 72 mm[Hg] eCW1 ([facility]) Diastolic blood pressure 64 mm[Hg] 64 mm[Hg] GEOVANNA ([facility]) Body height 72 [in_i] 72 [in_i] GEOVANNA ([facility]) Body mass index (BMI) [Ratio] 28.9 kg/m2 28.9 k g/m2 GEOV[facility]NA ([facility]) Systolic blood pressure 98 mm[Hg] 98 mm[Hg] A THENA ([facility]) Body weight 3410 [oz_av] 3410 [oz_av] GEOVANNA ([facility]) Patient Treatment Plan of Care Planned Activity Planned Date Details Description Data Source (s) Metoclopramide 10 MG Oral Tablet [Reglan] 05/03/2021 12:00:00 AM ES T eCW1 ([facility]) Metoclopramide 10 MG Oral Tablet [Reglan] 05/03/2021 12:00:00 AM ES T eCW1 ([facility]) Progesterone 200 MG Oral Capsule [Prometrium] 03/08/2021 12:00:00 A M EDT eCW1 ([facility]) Progesterone 200 MG Oral Capsule [Prometrium] 03/08/2021 12:00:00 A M EDT eCW1 ([facility]) Progesterone 200 MG Oral Capsule [Prometrium] 03/08/2021 12:00:00 A M EDT eCW1 ([facility]) Progesterone 200 MG Oral Capsule [Prometrium] 03/08/2021 12:00:00 A M EDT eCW1 ([facility]) Progesterone 200 MG Oral Capsule [Prometrium] 03/08/2021 12:00:00 A M EDT eCW1 ([facility]) Progesterone 200 MG Oral Capsule [Prometrium] 03/08/2021 12:00:00 A M EDT eCW1 ([facility]) Progesterone 200 MG Oral Capsule [Prometrium] 03/08/2021 12:00:00 A M EDT eCW1 ([facility]) Progesterone 200 MG Oral Capsule [Prometrium] 03/08/2021 12:00:00 A M EDT eCW1 ([facility]) Progesterone 200 MG Oral Capsule [Prometrium] 03/08/2021 12:00:00 A M EDT eCW1 ([facility]) Progesterone 200 MG Oral Capsule [Prometrium] 03/08/2021 12:00:00 A M EDT eCW1 ([facility]) Progesterone 100 MG 03/07/2021 12:00:00 AM EDT eCW1 ([facility]) Progesterone 100 MG 03/07/2021 12:00:00 AM EDT eCW1 ([facility]) Progesterone 100 MG 03/07/2021 12:00:00 AM EDT eCW1 ([facility]) Progesterone 100 MG 03/07/2021 12:00:00 AM EDT eCW1 ([facility]) Progesterone 100 MG 03/07/2021 12:00:00 AM EDT eCW1 ([facility]) Progesterone 100 MG 03/07/2021 12:00:00 AM EDT eCW1 ([facility]) Progesterone 100 MG 03/07/2021 12:00:00 AM EDT eCW1 ([facility]) Progesterone 100 MG 03/07/2021 12:00:00 AM EDT eCW1 ([facility]) Progesterone 100 MG 03/07/2021 12:00:00 AM EDT eCW1 ([facility]) Progesterone 100 MG 03/07/2021 12:00:00 AM EDT eCW1 ([facility]) Progesterone 100 MG 03/07/2021 12:00:00 AM EDT eCW1 ([facility]) Monistat 7 Complete Therapy 100-2 MG 12/24/2020 12:00:00 AM EDT eCW1 ([facility]) Monistat 7 Complete Therapy 100-2 MG 12/24/2020 12:00:00 AM EDT eCW1 ([facility]) Monistat 7 Complete Therapy 100-2 MG 12/24/2020 12:00:00 AM EDT eCW1 ([facility]) Monistat 7 Complete Therapy 100-2 MG 12/24/2020 12:00:00 AM EDT eCW1 ([facility]) Promethazine Hydrochloride 25 MG Oral Tablet 12/06/2020 12:00:00 AM EDT eCW1 ([facility]) Promethazine Hydrochloride 25 MG Oral Tablet 12/06/2020 12:00:00 AM EDT eCW1 ([facility]) Promethazine Hydrochloride 25 MG Oral Tablet 12/06/2020 12:00:00 AM EDT eCW1 ([facility]) Promethazine Hydrochloride 25 MG Oral Tablet 12/06/2020 12:00:00 AM EDT eCW1 ([facility]) Promethazine Hydrochloride 25 MG Oral Tablet 12/06/2020 12:00:00 AM EDT eCW1 ([facility]) Prazosin 2 MG Oral Capsule A THENA ([facility]) pantoprazole 20 MG Delayed Release Oral Tablet GEOVANNA ([facility]) Oxybutynin chloride 5 MG Oral Tablet GEOVANNA ([facility]) gabapentin 300 MG Oral Capsule GEOVANNA ([facility]) Fluconazole 150 MG Oral Tablet GEOVANNA ([facility]) Famotidine 20 MG Oral Tablet GEOVANNA ([facility]) duloxetine 60 MG Delayed Release Oral Capsule GEOVANNA ([facility]) duloxetine 30 MG Delayed Release Oral Capsule GEOVANNA ([facility]) Doxycycline Monohydrate 100 MG Oral Capsule GEOVANNA ([facility]) Calcium Carbonate 500 MG Chewable Tablet GEOVANNA ([facility]) buspirone hydrochloride 15 MG Oral Tablet GEOVANNA ([facility])
[2021-05-19] MEDS ORDERED: LACTATED RINGER'S 1000 ML IV STA (22:56)
[2021-05-19] MEDS ORDERED: ceFAZolin SOD 2 GM in IV 1 EA IV ONE (23:00)
[2021-05-19] MEDS ORDERED: LR 1,000 ML IV SCH (23:00)
[2021-05-19] MEDS ORDERED: fentaNYL 100 MCG/2 ML INJECTION (J3010) As Ordered ONE (23:20)
[2021-05-19 23:21] LABS: HEMATOCRIT 40.8 % (36.0-47.0); HEMOGLOBIN 13.7 g/dl (12.0-15.5); MEAN CORPUSCULAR HEMOGLOBIN 30.2 pg (27.0-33.0); MEAN CORPUSCULAR HGB CONC 33.6 g/dl (32.0-36.5); MEAN CORPUSCULAR VOLUME 89.9 fl (80.0-96.0); PLATELET COUNT, AUTOMATED 272 10^3/uL (150-450); RED BLOOD COUNT 4.54 10^6/uL (4.00-5.40); WHITE BLOOD COUNT 20.7 10^3/uL (4.0-10.0)
[2021-05-19] MEDS ORDERED: propofoL 200 MG/20 ML VIAL As Ordered ONE (23:21)
[2021-05-19] MEDS ORDERED: LIDOCAINE 2% 100MG/5ML SDV (FOR ANES.) As Ordered ONE (23:21)
[2021-05-19] MEDS ORDERED: SUCCINYLCHOLINE 100 MG/5 ML SYRINGE (J0330) As Ordered ONE (23:21)
[2021-05-19] MEDS ORDERED: ROCURONIUM BROMIDE 50 MG/5 ML VIAL As Ordered ONE (23:21)
[2021-05-19] MEDS ORDERED: OXYTOCIN 30 UNITS IN 0.9% NaCl 500ML IV BAG (J2590) As Ordered ONE (23:24)
[2021-05-19] MEDS ORDERED: ONDANSETRON 4MG/2ML VIAL As Ordered ONE (23:25)
[2021-05-19] MEDS ORDERED: METOCLOPRAMIDE INJ 10MG/2ML VIAL (J2765 PER 1) As Ordered ONE (23:25)
[2021-05-19] MEDS ORDERED: KETOROLAC 60MG 2ML VIAL As Ordered ONE (23:34)
[2021-05-19] MEDS ORDERED: ACETAMINOPHEN 1000MG 100ML IV BTL (OFIRMEV) (J0131 PER 10MG) As Ordered ONE (23:36)
[2021-05-20] VITALS (9 sets, daily range): BP systolic 104–142; BP diastolic 51–77
[2021-05-20 00:08] LABS: CORD GAS ABE A -4.8; CORD GAS HCO3 A 23.4 MEQ/L; CORD GAS O2 SAT A 59.1 %; CORD GAS PCO2 A 56.7 mmHg; CORD GAS PH A 7.234 UNITS; CORD GAS PO2 A 24.4 mmHg; CORD GAS SBC A 19.6 MEQ/L; CORD GAS TCO2 A 25.2 MEQ/L
[2021-05-20] MEDS ORDERED: MEASLES,MUMPS,RUBELLA VACCINE INJ (MMR-II) (90707) SC SCH (00:10)
[2021-05-20] MEDS: LR 1,000 ML IV SCH ×2 (00:10→08:10)
[2021-05-20] MEDS ORDERED: ONDANSETRON 4MG/2ML VIAL IV PRN ×2 (00:10→00:25)
[2021-05-20] MEDS ORDERED: PERCOCET 5MG/325MG TAB PO PRN ×2 (00:10→00:25)
[2021-05-20] MEDS ORDERED: MORPHINE 4 MG/ML 1ML VIAL/SYRINGE (J2270) IV PRN (00:10)
[2021-05-20] MEDS ORDERED: RHOGAM 300 MCG (1500 IU) INJ (J2790) IM SCH (00:10)
[2021-05-20 00:11] LABS: CORD GAS ABE V -4.9; CORD GAS HCO3 V 21.7 MEQ/L; CORD GAS O2 SAT V 63.5 %; CORD GAS PCO2 V 45.9 mmHg; CORD GAS PH V 7.292 UNITS; CORD GAS PO2 V 24.2 mmHg; CORD GAS SBC V 19.7 MEQ/L; CORD GAS TCO2 V 23.1 MEQ/L
--- NOTE | 2021-05-20 00:20 | HPEPDOC ---
Obstetrical History & Physical General Date of Admission May 19, 2021 at 22:46 History of Present Illness 30-year-old 10 para 2-0-7-2 female at 32-3/7 weeks gestation by LMP consistent with 8-week ultrasound (EDC equals 07/11/2020) presents with painful contractions for the last 24 hours. The contractions increased in intensity. After being told to come into the hospital she started experience vaginal bleeding. She denied leaking of fluid. Chief Complaint: Contractions, term Information Provided By: Patient Age: 30 : 10 Term: 2 Pre-term: 0 Abortions: 7 Livin Care Care: Limited Care Dating Final EDC: Jul 11, 2021 Final EDC by: LMP, 1st trimester (US) Antepartum Course Diagnos(e)s 1. Chronic hepatitis C 2. History of opioid abuse, currently on methadone maintenance 3. Shortened cervix on anatomy ultrasound. Patient maintained on vaginal Prometrium throughout . Past Medical History Past Medical History Medical History Ob Hx: 1 miscarriage 2 miscarriage 3 miscarriage 4 miscarriage 5 miscarriage 6 miscarriage 7 05/12/2014 2014, female, vaginal 8 miscarriage 9 09/02/2019 36 female, vaginal 10 current Med Hx: Asthma (no meds) DDD/ Chronic back pain : Has been following with Dr Awan/ Dr Clancy in past. CT C Spine 03/27 Mild straightening of Lordosis, otherwise neg. MRI Lumbar sp 07/28 diffuse disc bulges and moderate-sized disc extrusions L3-4 and 4-5 with thecal sac compression, moderate-sized disc extrusion at L5-S1 with mild compression of the thecal sac and right nerve, no change from previous study 06/26. Referred back to Dr Awan 01/26. Depression /Anxiety: Controlled with meds (not previously seen by Psych) Tobacco use Obesity migraines gerd herniated discs in back x 3 add eczema Opioid abuse. Currently on methadone maintenance. Surg hx: Rt ankle surgery /plates and screws tonsillectomy 14 yo gallbladder gastric bypass Family History Significant Family History: No pertinent family hx Social History Marital Status: Single Family situation: Spouse/partner home * Smoker: current smoker Alcohol: Denies Allergies Coded Allergies: No Known Allergies (Unverified , 05/12/21) Medications Scheduled Cephalexin (Cephalexin) 500 Mg Capsule, 1 CAP PO TID Gabapentin (Gabapentin) 600 Mg Tab, 600 MG PO TID for pain Methadone HCl (Methadone HCl) 10 Mg/1 Ml Oral.conc, 125 MG PO DAILY Multivitamins (Thera M Plus Tablet) 1 Tab Tab, 1 TAB PO DAILY Miscellaneous Medications Bupropion HCl (Bupropion HCl Sr) 200 Mg Tab.sr.12h Metoclopramide HCl (Metoclopramide HCl) 10 Mg Tablet Ondansetron (Ondansetron Odt) 4 Mg Tab.rapdis Physical Examination Physical Examination GENERAL: Alert and oriented times three. BREAST: . ABDOMEN: Gravid and non-tender to touch. FETUS: Is vertex (VTX) by sterile vaginal examination (SVE), fetus is vertex (VTX) by Zeeshan. HEART RATE: Regular rate and rhythm. LUNGS: Clear to auscultation (CTA). EXTREMITIES: No edema. No clonus. Deep tendon reflexes (DTRs) + . Laboratory Data 24H LABS Laboratory Tests 2 05/19/21 22:55: Serology Scanned Report Hepatitis B Testing 05/19/21 23:04: Nucleated Red Blood Cells % (auto) 0.0 05/19/21 23:57: CBC/BMP Laboratory Tests 05/19/21 23:04 Vaginal Examination Dilation: complete Effacement: 100% Station: 0 Presentation: Breech presentation Assessment Variability: Moderate Accelerations: Positive Tocometer Contractions: Yes Frequency: regular Assessment/Plan Assessment 30-year-old 10 para 2-0-7-2 female at 32-3/7 weeks gestation by LMP consistent with 8-week ultrasound (EDC equals 07/11/2020) presents in active labor with a footling breech presentation. Plan Admit and orient. Parachute Cushion Installer and consent. Verbal consent for section obtained. Anesthesia urgently notified. Patient will likely require general anesthesia as she is too uncomfortable to sit for spinal. Neonatology notified to be present for delivery. COURT HUGGINS MD May 20, 2021 00:20
[2021-05-20] MEDS ORDERED: fentaNYL 100 MCG/2 ML INJECTION (J3010) IV PRN (00:25)
[2021-05-20] MEDS ORDERED: METOCLOPRAMIDE INJ 10MG/2ML VIAL (J2765 PER 1) IV PRN (00:25)
[2021-05-20] MEDS ORDERED: LR 1,000 ML IV SCH (00:25)
--- NOTE | 2021-05-20 00:28 | ROOPDOC ---
[facility] Report Of Operation Report of Operation DATE OF PROCEDURE: 05/20/21 Report of operation Preoperative diagnosis:32 3/7 weeks, labor, footling breech presentation Postoperative diagnosis: Same Procedure: Classical section Surgeon: Court Huggins M.D. Asst: Fer Sears DO EBL: 600 ml. Urine output: 100 mL's. [id number] gram male , 's 3, 9, 9. normal uterus, fallopian tubes, ovaries. Operative summary: Patient taken to the operating room where general endotracheal anesthesia was induced. She was prepped and draped sterile fashion in the supine position. A Pfannenstiel skin incision was made with scalpel. Fascia was incised and extended bilaterally. The peritoneal cavity was entered. A Mobius retractor was placed. The lower uterine segment was noted to be poorly developed and not adequate to allow for safe delivery of the fetus. A vertical uterine incision was made in the midline until bulging membranes were noted. The incision was extended manually. The was delivered from the breech position without difficulty. Cord was doubly clamped and cut. The was handed to the awaiting head well puller. The placenta was expressed. Uterus was closed with O-Vicryl in a running locked fashion. A second imbricating layer of Vicryl was placed. Peritoneum was closed with 2-0 Vicryl a running fashion. Fascia was closed with 0 Vicryl in running fashion. Skin was closed 4-0 Monocryl subcuticular sutures. Sponge, instrument and needle counts were correct. Fer Sears DO, assisted with all aspects of the procedure. He helped close each layer of the incision and deliver the fetus. COURT HUGGINS MD May 20, 2021 00:28
[2021-05-20] MEDS: KETOROLAC 30 MG/ML 1ML VIAL IV SCH ×3 (05:43→18:22)
[2021-05-20] MEDS: PRENATAL VITAMINS CHEWABLE TABLET PO SCH (08:12)
[2021-05-20] MEDS: PERCOCET 5MG/325MG TAB PO PRN ×3 (08:17→22:58)
[2021-05-20] MEDS: METHADONE 10 MG TAB (S0109) PO SCH (11:52)
[2021-05-20] MEDS ORDERED: buPROPion (WELLBUTRIN SR) 100 MG SR TAB PO SCH (21:00)
[2021-05-20] MEDS: busPIRone 10 MG TAB PO SCH (21:31)
[2021-05-20] MEDS: SIMETHICONE 80MG CHEW TAB PO PRN (22:57)
[2021-05-21 02:00] VITALS: BP 108/53
[2021-05-21] MEDS: SIMETHICONE 80MG CHEW TAB PO PRN (05:01)
[2021-05-21] MEDS: PERCOCET 5MG/325MG TAB PO PRN ×3 (05:01→17:17)
[2021-05-21 06:00] VITALS: BP 110/60
[2021-05-21] MEDS: busPIRone 10 MG TAB PO SCH ×3 (08:32→20:46)
[2021-05-21] MEDS: PRENATAL VITAMINS CHEWABLE TABLET PO SCH (08:33)
[2021-05-21] MEDS: METHADONE 10 MG TAB (S0109) PO SCH (08:38)
[2021-05-21 09:49] LABS: HEMATOCRIT 38.9 % (36.0-47.0); HEMOGLOBIN 12.5 g/dl (12.0-15.5); MEAN CORPUSCULAR HEMOGLOBIN 30.2 pg (27.0-33.0); MEAN CORPUSCULAR HGB CONC 32.1 g/dl (32.0-36.5); PLATELET COUNT, AUTOMATED 236 10^3/uL (150-450); RED BLOOD COUNT 4.14 10^6/uL (4.00-5.40); WHITE BLOOD COUNT 9.7 10^3/uL (4.0-10.0)
[2021-05-21 10:31] VITALS: BP 129/74
[2021-05-21] MEDS: GABAPENTIN 300 MG CAP PO SCH ×2 (16:13→20:46)
[2021-05-21] MEDS: CEPHALEXIN 500 MG CAP PO SCH ×2 (16:13→20:45)
[2021-05-21] MEDS ORDERED: NICOTINE 21MG/24HR 1 EA TRANSDERMAL TD PRN (17:50)
--- NOTE | 2021-05-21 17:54 | IPNPDOC ---
Progress Note Date of Service: May 21, 2021 Day#: 1 Progress Note SUBJECT: Patient has been back and forth to the NICU today. Patient hasn't been seen today but communication was made with nurse about her care. OBJECTIVE: VITAL SIGNS: see below ASSESSMENT: day 2 postoperative PLAN: 1. Continue supportive nursing care. 2. Start patient on Nicotine patch per request. 3. Anticipate discharge to home tomorrow. VS, I&O, 24H, Fishbone Vital Signs/I&O Vital Signs Date Time Temp Pulse Resp B/P (MAP) Pulse Ox O2 Delivery O2 Flow Rate FiO2 05/21/21 17:17 18 05/21/21 10:31 97.8 66 129/74 (92) 97 Room Air 05/20/21 00:01 10.0 I&O- Last 24 Hours up to 6 AM 05/21/21 06:00 Intake Total 1320 ml Output Total 955 ml Balance 365 ml Laboratory Data 24H LABS Laboratory Tests 2 05/21/21 09:07: Nucleated Red Blood Cells % (auto) 0.0 05/21/21 11:15: Methicillin-Resist S.aureus DNA PCR NOT DETECTED CBC/BMP Laboratory Tests 05/21/21 09:07 ZUNILDA THAO CNM May 21, 2021 17:54
[2021-05-21 18:00] VITALS: BP 111/51
[2021-05-21] MEDS ORDERED: SLF 3 ML SYR IV PRN (18:15)
[2021-05-21] MEDS: METOCLOPRAMIDE 10 MG TAB PO SCH (20:46)
[2021-05-21] MEDS: SLF 3 ML SYR IV SCH (20:46)
[2021-05-21 22:00] VITALS: BP 127/81
[2021-05-22] MEDS: PERCOCET 5MG/325MG TAB PO PRN ×2 (00:09→06:18)
[2021-05-22 05:58] VITALS: BP 124/78
[2021-05-22] MEDS: SLF 3 ML SYR IV SCH (06:00)
[2021-05-22] MEDS ORDERED: PERCOCET PO (09:16)
[2021-05-22] MEDS ORDERED: COLA100C5 PO (09:16)
[2021-05-22] MEDS ORDERED: MI-A80CH PO (09:16)
[2021-05-22] MEDS: METHADONE 10 MG TAB (S0109) PO SCH (09:16)
[2021-05-22] MEDS: busPIRone 10 MG TAB PO SCH (09:16)
[2021-05-22] MEDS: CEPHALEXIN 500 MG CAP PO SCH (09:17)
[2021-05-22] MEDS: PRENATAL VITAMINS CHEWABLE TABLET PO SCH (09:17)
[2021-05-22] MEDS: METOCLOPRAMIDE 10 MG TAB PO SCH (09:18)
[2021-05-22] MEDS: GABAPENTIN 300 MG CAP PO SCH (09:18)
--- NOTE | 2021-05-22 11:30 | OBDS ---
[facility] Obstetrical Discharge Sum. Obstetrical Discharge Summary Date: May 22, 2021 : 10 Term: 3 Pre-term: 0 Abortions: 7 Livin VDRL: Non-Reactive Rh: Negative Labor Labor with breech presentation Delivery primary section Sex: Male Infant Weight: grams (1930) Anesthesia: Regional Anesthesia A/P, Post Course List any complications Admission diagnosis: Labor Discharge diagnosis: Condition at Discharge: Stable Discharge Instructions: Home Activity: As tolerated Diet: Regular Medications: See med rec Follow-up: 2-week incision check in the office JANE SAVAGE MD May 22, 2021 11:30
[2021-05-22] MEDS ORDERED: medroxyPROGESTERone ACET IM SUSP 150 MG/ML VIAL (J1050) IM ONE (12:00)
[2021-05-24] MEDS ORDERED: OXYC1TAB23 PO (16:52)
== END 2021-05-22 13:40 | disposition home or self-care (01) | DRG 540 ==
LOC: M LDO 22:27 → M LDI 22:46 → EEVIPCON 22:46 → M OBS 05-20 00:55
PROVIDERS: ADMIT Specialist; ATTEND Specialist
PROC: 10D00Z1 Extraction of Products of Conception, Low, Open Approach (ICD-10-PCS; principal; 2021-05-19 23:52)
DX: O60.14X0 Preterm labor third trimester with preterm delivery third trimester, not applicable or unspecified (principal); O32.1XX0 Maternal care for breech presentation, not applicable or unspecified; Z3A.32 32 weeks gestation of pregnancy; Z37.0 Single live birth

== ENCOUNTER → 2021-09-18 | Outpatient (REF) | payer OTHER ==
[~2021-09-18] MED LIST changes: +COLA100C5 PO; +FLUO-96 PO; -FLUO20CA20 PO; +MI-A80CH PO
[2021-09-18 17:19] LABS: APPEARANCE, URINE HAZY (CLEAR); BACTERIA, URINE AUTO NEGATIVE (NEGATIVE); BILIRUBIN, URINE AUTO 1+ (NEGATIVE); BLOOD, URINE BLOOD NEGATIVE (NEGATIVE); COLOR, URINE AMBER (YELLOW); GLUCOSE, URINE (UA) AUTO NEGATIVE (NEGATIVE); KETONE, URINE AUTO TRACE mg/dL (NEGATIVE); LEUKOCYTE ESTERASE, URINE AUTO TRACE (NEGATIVE); MUCUS, URINE SMALL (NEGATIVE); NITRITE, URINE AUTO NEGATIVE (NEGATIVE); PROTEIN, URINE AUTO 2+ mg/dL (NEGATIVE); RBC, URINE AUTO 4 /HPF (0-3); SPECIFIC GRAVITY URINE AUTO 1.036 (1.002-1.035); SQUAMOUS EPITHELIAL CELL UR AU 26 /HPF (0-6); WBC, URINE AUTO 5 /HPF (0-3)
[2021-09-18 19:23] LABS: GC DNA AMPLIFICATION NEGATIVE (NEGATIVE)
== END ==
LOC: M LAB REF 16:37
PROVIDERS: ATTEND Physician Assistant Medical
DX: N39.0 Urinary tract infection, site not specified (principal)

== ENCOUNTER → 2022-05-24 | Outpatient (CLI) | payer OTHER ==
[2022-05-24 18:38] LABS: HEMATOCRIT 42.5 % (36.0-47.0); HEMOGLOBIN 13.7 g/dl (12.0-15.5); MEAN CORPUSCULAR HEMOGLOBIN 29.5 pg (27.0-33.0); MEAN CORPUSCULAR HGB CONC 32.2 g/dl (32.0-36.5); MEAN CORPUSCULAR VOLUME 91.6 fl (80.0-96.0); PLATELET COUNT, AUTOMATED 225 10^3/uL (150-450); RED BLOOD COUNT 4.64 10^6/uL (4.00-5.40); WHITE BLOOD COUNT 6.3 10^3/uL (4.0-10.0)
[2022-05-24 18:55] LABS: ALBUMIN 3.7 G/DL (3.2-5.2); ALKALINE PHOSPHATASE 61 U/L (46-116); ALT/SGPT 22 U/L (7.0-40); AST/SGOT 20 U/L (<34); BILIRUBIN,TOTAL 0.2 MG/DL (0.3-1.2); BLOOD UREA NITROGEN 12 MG/DL (9-23); CALCIUM LEVEL 8.7 MG/DL (8.5-10.1); CARBON DIOXIDE LEVEL 25 MMOL/L (20-31); CHLORIDE LEVEL 107 MMOL/L (98-107); CREATININE FOR GFR 0.51 MG/DL (0.55-1.30); GLOMERULAR FILTRATION RATE > 60.0 (>60); GLUCOSE, FASTING 66 MG/DL (60-100); POTASSIUM SERUM 3.8 MMOL/L (3.5-5.1); SODIUM LEVEL 142 MMOL/L (136-145); TOTAL PROTEIN 6.4 G/DL (5.7-8.2)
[2022-05-24 19:02] LABS: HCG, SERUM QUALITATIVE NEGATIVE (NEGATIVE)
[2022-05-24 19:07] LABS: HEPATITIS B SURFACE ANTIGEN NEGATIVE (NEGATIVE)
[2022-05-24 19:23] LABS: HIV 1&2 SCREEN CENTAUR NEGATIVE (NEGATIVE)
[2022-05-24 19:51] LABS: GC DNA AMPLIFICATION NEGATIVE (NEGATIVE)
== END ==
LOC: M LAB 16:27
PROVIDERS: ATTEND Family Medicine
DX: F15.20 Other stimulant dependence, uncomplicated (principal)

== ENCOUNTER → 2022-07-04 | Outpatient (REF) | payer OTHER ==
[2022-07-04 16:41] LABS: IRON (FE) 99 UG/DL (50-170); PERCENT SATURATION 34.6 % (13.2-45.0); TOTAL IRON BINDING CAPACITY 286 UG/DL (250-425)
[2022-07-04 16:42] LABS: ALBUMIN 3.6 G/DL (3.2-5.2); ALKALINE PHOSPHATASE 74 U/L (46-116); ALT/SGPT 23 U/L (7.0-40); AST/SGOT 22 U/L (<34); BILIRUBIN,TOTAL 0.2 MG/DL (0.3-1.2); BLOOD UREA NITROGEN 10 MG/DL (9-23); CALCIUM LEVEL 8.6 MG/DL (8.5-10.1); CARBON DIOXIDE LEVEL 28 MMOL/L (20-31); CHLORIDE LEVEL 108 MMOL/L (98-107); CHOLESTEROL LEVEL 120 MG/DL (<200); CHOLESTEROL RISK RATIO 2.34 (<5); CREATININE FOR GFR 0.56 MG/DL (0.55-1.30); GLOMERULAR FILTRATION RATE > 60.0 (>60); GLUCOSE, FASTING 67 MG/DL (60-100); HDL CHOLESTEROL 51.2 MG/DL (>40); NON-HDL-C 69 MG/DL; POTASSIUM SERUM 4.3 MMOL/L (3.5-5.1); SODIUM LEVEL 140 MMOL/L (136-145); TOTAL PROTEIN 6.9 G/DL (5.7-8.2); TRIGLYCERIDES LEVEL 59 MG/DL (<150)
[2022-07-04 16:45] LABS: BASO % 0.6 % (0.0-1.0); EOS # 0.1 10^3/uL (0.0-0.5); EOS % 1.9 % (0.0-3.0); FERRITIN 19.8 NG/ML (7.3-270.7); HEMATOCRIT 43.7 % (36.0-47.0); HEMOGLOBIN 13.5 g/dl (12.0-15.5); LYMPH # 2.1 10^3/uL (1.5-5.0); LYMPH % 32.2 % (24.0-44.0); MEAN CORPUSCULAR HGB CONC 30.9 g/dl (32.0-36.5); MONO # 0.3 10^3/uL (0.0-0.8); MONO % 5.3 % (2.0-8.0); NEUTROPHILS # 3.9 10^3/uL (1.5-8.5); NEUTROPHILS % 59.8 % (36.0-66.0); PLATELET COUNT, AUTOMATED 251 10^3/uL (150-450); RED BLOOD COUNT 4.65 10^6/uL (4.00-5.40); THYROID STIMULATING HORMONE 1.645 uIU/ML (0.55-4.78); WHITE BLOOD COUNT 6.4 10^3/uL (4.0-10.0)
[2022-07-04 16:46] LABS: VITAMIN B12 LEVEL 1735 PG/ML (211-911)
[2022-07-04 17:25] LABS: FOLATE 9.4 NG/ML (>5.4)
[2022-07-04 18:21] LABS: HEMOGLOBIN A1c 4.5 % (4.0-6.0)
== END ==
LOC: M LAB REF 16:10
PROVIDERS: ATTEND Nurse Practitioner Family
DX: Z79.84 Long term (current) use of oral hypoglycemic drugs (principal)

== ENCOUNTER 2022-08-10 15:45 | Emergency (ER) | payer OTHER ==
[~2022-08-10] VITALS: Ht 182.9 cm; Wt 88.4 kg
[2022-08-10] MEDS ORDERED: OXCA600T8 (16:05)
[2022-08-10 16:48] LABS: BASO % 0.3 % (0.0-1.0); EOS # 0.1 10^3/uL (0.0-0.5); EOS % 1.3 % (0.0-3.0); HEMATOCRIT 40.1 % (36.0-47.0); HEMOGLOBIN 13.1 g/dl (12.0-15.5); LYMPH % 28.6 % (24.0-44.0); MEAN CORPUSCULAR HEMOGLOBIN 29.7 pg (27.0-33.0); MEAN CORPUSCULAR HGB CONC 32.7 g/dl (32.0-36.5); MEAN CORPUSCULAR VOLUME 90.9 fl (80.0-96.0); MONO # 0.6 10^3/uL (0.0-0.8); MONO % 6.2 % (2.0-8.0); NEUTROPHILS # 6.6 10^3/uL (1.5-8.5); NEUTROPHILS % 63.3 % (36.0-66.0); PLATELET COUNT, AUTOMATED 270 10^3/uL (150-450); RED BLOOD COUNT 4.41 10^6/uL (4.00-5.40); WHITE BLOOD COUNT 10.4 10^3/uL (4.0-10.0)
[2022-08-10 17:17] LABS: BLOOD UREA NITROGEN 7 MG/DL (9-23); CALCIUM LEVEL 9.1 MG/DL (8.5-10.1); CARBON DIOXIDE LEVEL 26 MMOL/L (20-31); CHLORIDE LEVEL 108 MMOL/L (98-107); CREATININE FOR GFR 0.56 MG/DL (0.55-1.30); GLOMERULAR FILTRATION RATE > 60.0 (>60); GLUCOSE, FASTING 98 MG/DL (60-100); POTASSIUM SERUM 3.9 MMOL/L (3.5-5.1); SODIUM LEVEL 141 MMOL/L (136-145)
[2022-08-10] MEDS ORDERED: LIDOCAINE 5% (LIDODERM) PATCH TD ONE (17:20)
[2022-08-10] MEDS ORDERED: CLINDAMYCIN 900 MG in IV 1 EA IV ONE (17:20)
[2022-08-10] MEDS ORDERED: KETOROLAC 30 MG/ML 1ML VIAL IV ONE (17:20)
[2022-08-10 17:48] LABS: LIPASE 26 U/L (12-53)
[2022-08-10 17:53] LABS: ALBUMIN 3.5 G/DL (3.2-5.2); ALKALINE PHOSPHATASE 85 U/L (46-116); ALT/SGPT 34 U/L (7.0-40); AST/SGOT 21 U/L (<34); BILIRUBIN,DIRECT < 0.1 MG/DL (<0.4); BILIRUBIN,TOTAL 0.2 MG/DL (0.3-1.2); TOTAL PROTEIN 6.5 G/DL (5.7-8.2)
[2022-08-10 18:51] LABS: AMPHETAMINES LEVEL URINE NEGATIVE (NEGATIVE); BARBITURATES URINE NEGATIVE (NEGATIVE); BENZODIAZEPINES URINE NEGATIVE (NEGATIVE); CANNABINOIDS URINE NEGATIVE (NEGATIVE); COCAINE METABOLITE URINE NEGATIVE (NEGATIVE); OPIATES URINE NEGATIVE (NEGATIVE); PHENCYCLIDINE URINE NEGATIVE (NEGATIVE)
[2022-08-10 18:53] LABS: METHADONE URINE POSITIVE (NEGATIVE)
[2022-08-10 19:30] LABS: GC DNA AMPLIFICATION NEGATIVE (NEGATIVE)
[2022-08-10] MEDS ORDERED: CLEO150C PO (20:11)
[2022-08-10] MEDS ORDERED: LIDO5DIS41 TOP (20:11)
[2022-08-10 20:40] VITALS: BP 125/68
== END 2022-08-10 20:40 | disposition home or self-care (01) ==
LOC: M ED 15:45
DX: L03.211 Cellulitis of face (principal); R16.0 Hepatomegaly, not elsewhere classified; M51.37 Other intervertebral disc degeneration, lumbosacral region; R87.619 Unspecified abnormal cytological findings in specimens from cervix uteri; K21.9 Gastro-esophageal reflux disease without esophagitis; Z86.19 Personal history of other infectious and parasitic diseases; Z87.448 Personal history of other diseases of urinary system; F41.9 Anxiety disorder, unspecified; F31.9 Bipolar disorder, unspecified; F90.0 Attention-deficit hyperactivity disorder, predominantly inattentive type; Z98.84 Bariatric surgery status; F17.200 Nicotine dependence, unspecified, uncomplicated; Z79.899 Other long term (current) drug therapy
CPT/HCPCS: 74176; 80048; 80076; 80307; 81001; 83690; 84702; 85025; 87210; 87661; 87810; 87850; 96361; 96374; 99284; J1885; S0077

== ENCOUNTER → 2023-12-03 | Outpatient (REF) | payer OTHER ==
[~2023-12-03] MED LIST changes: +CLEO150C PO; +LIDO5DIS41 TOP; +ONDA-282; -ONDA4TAB6; +OXCA600T8; -RISP-7; +RISP0.5T82
[2023-12-03 21:17] LABS: APPEARANCE, URINE CLOUDY (CLEAR); BACTERIA, URINE AUTO NEGATIVE (NEGATIVE); BILIRUBIN, URINE AUTO NEGATIVE (NEGATIVE); BLOOD, URINE BLOOD NEGATIVE (NEGATIVE); COLOR, URINE AMBER (YELLOW); GLUCOSE, URINE (UA) AUTO NEGATIVE (NEGATIVE); KETONE, URINE AUTO TRACE mg/dL (NEGATIVE); LEUKOCYTE ESTERASE, URINE AUTO 1+ (NEGATIVE); MUCUS, URINE SMALL (NEGATIVE); NITRITE, URINE AUTO NEGATIVE (NEGATIVE); PROTEIN, URINE AUTO 2+ mg/dL (NEGATIVE); RBC, URINE AUTO 3 /HPF (0-3); SQUAMOUS EPITHELIAL CELL UR AU 31 /HPF (0-6); UROBILINOGEN, URINE AUTO 0.2 mg/dL (0.0-2.0); WBC, URINE AUTO 14 /HPF (0-3)
[2023-12-03 23:52] LABS: Trichomonas vaginalis (AMP) NOT DETECTED (NEGATIVE)
[2023-12-04 00:16] LABS: GC DNA AMPLIFICATION NEGATIVE (NEGATIVE)
== END ==
LOC: M LAB REF 21:01
PROVIDERS: ATTEND Physician Assistant
DX: N39.0 Urinary tract infection, site not specified (principal)

== ENCOUNTER → 2024-01-13 | Outpatient (CLI) | payer OTHER ==
[2024-01-13 18:28] LABS: ALBUMIN 3.5 G/DL (3.2-5.2); ALKALINE PHOSPHATASE 66 U/L (46-116); ALT/SGPT 25 U/L (7.0-40); AST/SGOT 15 U/L (<34); BILIRUBIN,TOTAL 0.3 MG/DL (0.3-1.2); BLOOD UREA NITROGEN 10 MG/DL (9-23); CALCIUM LEVEL 8.9 MG/DL (8.5-10.1); CARBON DIOXIDE LEVEL 26 MMOL/L (20-31); CHLORIDE LEVEL 107 MMOL/L (98-107); CREATININE FOR GFR 0.59 MG/DL (0.55-1.30); GLOMERULAR FILTRATION RATE > 60.0 (>60); GLUCOSE, FASTING 52 MG/DL (60-100); SODIUM LEVEL 137 MMOL/L (136-145); TOTAL PROTEIN 6.2 G/DL (5.7-8.2)
[2024-01-13 18:35] LABS: HCG, SERUM QUALITATIVE NEGATIVE (NEGATIVE)
[2024-01-13 18:37] LABS: HEPATITIS B SURFACE ANTIBODY NEGATIVE (POSITIVE)
[2024-01-13 18:48] LABS: HEPATITIS B SURFACE ANTIGEN NEGATIVE (NEGATIVE)
[2024-01-13 18:58] LABS: HEMATOCRIT 38.9 % (36.0-47.0); HEMOGLOBIN 12.7 g/dl (12.0-15.5); MEAN CORPUSCULAR HEMOGLOBIN 30.5 pg (27.0-33.0); MEAN CORPUSCULAR HGB CONC 32.6 g/dl (32.0-36.5); MEAN CORPUSCULAR VOLUME 93.3 fl (80.0-96.0); PLATELET COUNT, AUTOMATED 201 10^3/uL (150-450); RED BLOOD COUNT 4.17 10^6/uL (4.00-5.40); WHITE BLOOD COUNT 5.4 10^3/uL (4.0-10.0)
[2024-01-13 19:01] LABS: HIV 1&2 SCREEN NEGATIVE (NEGATIVE)
[2024-01-13 19:09] LABS: HEPATITIS B CORE ANTIBODY IGM NEGATIVE (NEGATIVE)
[2024-01-13 19:42] LABS: HEPATITIS C VIRUS ABY INDEX 4.65 INDEX (<0.8)
[2024-01-13 20:14] LABS: GC DNA AMPLIFICATION NEGATIVE (NEGATIVE)
== END ==
LOC: M WUC 11:41
PROVIDERS: ATTEND Family Medicine
DX: F11.20 Opioid dependence, uncomplicated (principal)

== ENCOUNTER → 2024-01-13 | Outpatient (CLI) | payer OTHER ==
[2024-01-13 18:59] LABS: HEMATOCRIT 38.3 % (36.0-47.0); HEMOGLOBIN 12.5 g/dl (12.0-15.5); MEAN CORPUSCULAR HEMOGLOBIN 30.4 pg (27.0-33.0); MEAN CORPUSCULAR HGB CONC 32.6 g/dl (32.0-36.5); MEAN CORPUSCULAR VOLUME 93.2 fl (80.0-96.0); PLATELET COUNT, AUTOMATED 207 10^3/uL (150-450); RED BLOOD COUNT 4.11 10^6/uL (4.00-5.40); WHITE BLOOD COUNT 5.6 10^3/uL (4.0-10.0)
[2024-01-13 23:07] LABS: ALBUMIN 3.5 G/DL (3.2-5.2); ALKALINE PHOSPHATASE 66 U/L (46-116); ALT/SGPT 25 U/L (7.0-40); AST/SGOT 15 U/L (<34); BILIRUBIN,DIRECT 0.1 MG/DL (<0.4); BILIRUBIN,TOTAL 0.3 MG/DL (0.3-1.2); BLOOD UREA NITROGEN 9 MG/DL (9-23); CALCIUM LEVEL 8.9 MG/DL (8.5-10.1); CARBON DIOXIDE LEVEL 27 MMOL/L (20-31); CHLORIDE LEVEL 108 MMOL/L (98-107); CREATININE FOR GFR 0.52 MG/DL (0.55-1.30); FOLATE > 24.0 NG/ML (>5.4); GLOMERULAR FILTRATION RATE > 60.0 (>60); GLUCOSE, FASTING 53 MG/DL (60-100); IRON (FE) 98 UG/DL (50-170); MAGNESIUM LEVEL 1.9 MG/DL (1.8-2.4); PERCENT SATURATION 33.4 % (13.2-45.0); SODIUM LEVEL 140 MMOL/L (136-145); TOTAL IRON BINDING CAPACITY 293 UG/DL (250-425); TOTAL PROTEIN 6.2 G/DL (5.7-8.2)
[2024-01-13 23:08] LABS: HEPATITIS B SURFACE ANTIBODY NEGATIVE (POSITIVE)
[2024-01-13 23:09] LABS: FERRITIN 15.4 NG/ML (7.3-270.7); PROLACTIN 13.76 NG/ML; VITAMIN B12 LEVEL 1040 PG/ML (211-911)
[2024-01-13 23:20] LABS: HEPATITIS B SURFACE ANTIGEN NEGATIVE (NEGATIVE)
[2024-01-14 00:06] LABS: HEPATITIS C VIRUS ABY INDEX 4.57 INDEX (<0.8)
[2024-01-14 00:56] LABS: HCG, SERUM QUALITATIVE NEGATIVE (NEGATIVE)
== END ==
LOC: M WUC 11:34
PROVIDERS: ATTEND Nurse Practitioner Family
DX: Z98.84 Bariatric surgery status (principal); B19.20 Unspecified viral hepatitis C without hepatic coma

== ENCOUNTER → 2024-03-12 | Outpatient (REF) | payer OTHER ==
[~2024-03-12] MED LIST changes: +GABA-1490 PO; -GABA600T4 PO
[2024-03-12 17:19] LABS: APPEARANCE, URINE HAZY (CLEAR); BACTERIA, URINE AUTO 1+ (NEGATIVE); BILIRUBIN, URINE AUTO NEGATIVE (NEGATIVE); BLOOD, URINE BLOOD 1+ (NEGATIVE); COLOR, URINE YELLOW (YELLOW); GLUCOSE, URINE (UA) AUTO NEGATIVE (NEGATIVE); KETONE, URINE AUTO NEGATIVE (NEGATIVE); LEUKOCYTE ESTERASE, URINE AUTO 3+ (NEGATIVE); MUCUS, URINE SMALL (NEGATIVE); NITRITE, URINE AUTO NEGATIVE (NEGATIVE); PROTEIN, URINE AUTO NEGATIVE (NEGATIVE); RBC, URINE AUTO 5 /HPF (0-3); SPECIFIC GRAVITY URINE AUTO 1.018 (1.002-1.035); SQUAMOUS EPITHELIAL CELL UR AU 16 /HPF (0-6); WBC, URINE AUTO 17 /HPF (0-3)
[2024-03-12 18:45] LABS: Trichomonas vaginalis (AMP) NOT DETECTED (NEGATIVE)
[2024-03-12 19:09] LABS: GC DNA AMPLIFICATION NEGATIVE (NEGATIVE)
== END ==
LOC: M LAB REF 16:16
PROVIDERS: ATTEND Physician Assistant
DX: N39.0 Urinary tract infection, site not specified (principal)

== ENCOUNTER 2024-06-27 12:17 | Emergency (ER) | payer OTHER ==
[~2024-06-27] VITALS: Ht 182.9 cm; Wt 77.9 kg
[2024-06-27 13:19] LABS: BASO % 0.2 % (0.0-1.0); HEMATOCRIT 45.1 % (36.0-47.0); HEMOGLOBIN 14.3 g/dl (12.0-15.5); LYMPH # 0.7 10^3/uL (1.5-5.0); LYMPH % 15.2 % (24.0-44.0); MEAN CORPUSCULAR HEMOGLOBIN 29.2 pg (27.0-33.0); MEAN CORPUSCULAR HGB CONC 31.7 g/dl (32.0-36.5); MEAN CORPUSCULAR VOLUME 92.2 fl (80.0-96.0); MONO # 0.3 10^3/uL (0.0-0.8); MONO % 6.7 % (2.0-8.0); NEUTROPHILS # 3.7 10^3/uL (1.5-8.5); NEUTROPHILS % 77.7 % (36.0-66.0); PLATELET COUNT, AUTOMATED 195 10^3/uL (150-450); RED BLOOD COUNT 4.89 10^6/uL (4.00-5.40); WHITE BLOOD COUNT 4.8 10^3/uL (4.0-10.0)
[2024-06-27 13:25] LABS: ERYTHROCYTE SEDIMENTATION RATE 25 mm/hr (0-20)
[2024-06-27 13:46] LABS: BLOOD UREA NITROGEN 10 MG/DL (9-23); CALCIUM LEVEL 9.2 MG/DL (8.5-10.1); CARBON DIOXIDE LEVEL 28 MMOL/L (20-31); CHLORIDE LEVEL 105 MMOL/L (98-107); CREATININE FOR GFR 0.53 MG/DL (0.55-1.30); GLOMERULAR FILTRATION RATE > 60.0 (>60); GLUCOSE, FASTING 91 MG/DL (60-100); POTASSIUM SERUM 3.8 MMOL/L (3.5-5.1); SODIUM LEVEL 140 MMOL/L (136-145)
[2024-06-27 13:48] LABS: HCG, SERUM QUALITATIVE NEGATIVE (NEGATIVE)
[2024-06-27 15:59] LABS: KETONE, URINE AUTO RFX NEGATIVE (NEGATIVE); LEUKOCYTE ESTERASE UR AUTO RFX NEGATIVE (NEGATIVE); MUCUS, URINE RFX SMALL (NEGATIVE); NITRITE, URINE AUTO RFX NEGATIVE (NEGATIVE); RBC, URINE AUTO RFX 16 /HPF (0-3); SQUAM EPITHELIAL CELL UR AURFX 3 /HPF (0-6); WBC, URINE AUTO RFX 1 /HPF (0-3)
[2024-06-27 17:27] LABS: Trichomonas vaginalis (AMP) NOT DETECTED (NEGATIVE)
[2024-06-27 17:50] LABS: GC DNA AMPLIFICATION NEGATIVE (NEGATIVE)
[2024-06-27] MEDS ORDERED: DOXY-441 PO (17:55)
[2024-06-27 18:02] VITALS: BP 129/77; TEMP 96.5; O2SAT 100
[2024-06-27] MEDS: DOXYCYCLINE HYCLATE 100MG TABLET PO ONE (18:03)
== END 2024-06-27 18:07 | disposition home or self-care (01) ==
LOC: M ED 12:17
DX: L03.116 Cellulitis of left lower limb (principal); F17.290 Nicotine dependence, other tobacco product, uncomplicated; Z79.2 Long term (current) use of antibiotics; Z79.810 Long term (current) use of selective estrogen receptor modulators (SERMs); Z79.899 Other long term (current) drug therapy

== ENCOUNTER → 2024-10-05 | Outpatient (REF) | payer OTHER ==
[~2024-10-05] MED LIST changes: +DOXY-441 PO
[2024-10-05 19:02] LABS: APPEARANCE, URINE HAZY (CLEAR); BACTERIA, URINE AUTO 1+ (NEGATIVE); BILIRUBIN, URINE AUTO NEGATIVE (NEGATIVE); BLOOD, URINE BLOOD 1+ (NEGATIVE); CALCIUM OXALATE CRYSTALS SMALL; COLOR, URINE YELLOW (YELLOW); GLUCOSE, URINE (UA) AUTO NEGATIVE (NEGATIVE); KETONE, URINE AUTO TRACE mg/dL (NEGATIVE); LEUKOCYTE ESTERASE, URINE AUTO 1+ (NEGATIVE); MUCUS, URINE SMALL (NEGATIVE); NITRITE, URINE AUTO NEGATIVE (NEGATIVE); PROTEIN, URINE AUTO 1+ mg/dL (NEGATIVE); RBC, URINE AUTO 37 /HPF (0-3); SPECIFIC GRAVITY URINE AUTO 1.031 (1.002-1.035); SQUAMOUS EPITHELIAL CELL UR AU 11 /HPF (0-6); WBC, URINE AUTO 13 /HPF (0-3)
== END ==
LOC: M LAB REF 16:55
PROVIDERS: ATTEND Physician Assistant Medical
DX: N39.0 Urinary tract infection, site not specified (principal)

== ENCOUNTER → 2024-10-19 | Outpatient (CLI) | payer OTHER ==
[~2024-10-19] MED LIST changes: -AMBI10TA PO; -BUPR1TAB56; +BUPR200T45; +ZOLP-533 PO
[2024-10-19 17:52] LABS: ALBUMIN 3.4 G/DL (3.2-5.2); ALKALINE PHOSPHATASE 118 U/L (35-104); ALT/SGPT 43 U/L (7.0-40); AST/SGOT 29 U/L (<34); BILIRUBIN,TOTAL 0.2 MG/DL (0.3-1.2); BLOOD UREA NITROGEN 7 MG/DL (9-23); CALCIUM LEVEL 8.8 MG/DL (8.5-10.1); CARBON DIOXIDE LEVEL 29 MMOL/L (20-31); CHLORIDE LEVEL 108 MMOL/L (98-107); CREATININE FOR GFR 0.53 MG/DL (0.55-1.30); GLOMERULAR FILTRATION RATE > 90.0 (>60); GLUCOSE, FASTING 75 MG/DL (60-100); HEMATOCRIT 37.9 % (36.0-47.0); HEMOGLOBIN 11.9 g/dl (12.0-15.5); MEAN CORPUSCULAR HEMOGLOBIN 29.2 pg (27.0-33.0); MEAN CORPUSCULAR HGB CONC 31.4 g/dl (32.0-36.5); MEAN CORPUSCULAR VOLUME 93.1 fl (80.0-96.0); PLATELET COUNT, AUTOMATED 289 10^3/uL (150-450); POTASSIUM SERUM 4.4 MMOL/L (3.5-5.1); RED BLOOD COUNT 4.07 10^6/uL (4.00-5.40); SODIUM LEVEL 143 MMOL/L (136-145); THYROID STIMULATING HORMONE 1.727 uIU/ML (0.55-4.78); TOTAL PROTEIN 6.7 G/DL (5.7-8.2); WHITE BLOOD COUNT 7.3 10^3/uL (4.0-10.0)
[2024-10-19 17:53] LABS: FREE T4 1.08 NG/DL (0.89-1.76); LITHIUM LEVEL 0.32 MMOL/L (1.0-1.20)
== END ==
LOC: M WUC 14:48
PROVIDERS: ATTEND Nurse Practitioner Family
DX: F31.81 Bipolar II disorder (principal)

== ENCOUNTER → 2024-11-03 | Outpatient (REF) | payer OTHER ==
[~2024-11-03] MED LIST changes: +LIDO1ADH93 TOP; -LIDO5DIS41 TOP
== END ==
LOC: M LAB REF 11:45
PROVIDERS: ATTEND Student in an Organized Health Care Education/Training Program
DX: R30.0 Dysuria (principal)

== ENCOUNTER → 2025-01-14 | Outpatient (REF) | payer OTHER ==
[2025-01-14 14:45] LABS: CALCIUM LEVEL 9.2 MG/DL (8.5-10.1); CARBON DIOXIDE LEVEL 28 MMOL/L (20-31); CHLORIDE LEVEL 106 MMOL/L (98-107); CHOLESTEROL LEVEL 127 MG/DL (<200); CHOLESTEROL RISK RATIO 2.33 (<5); CREATININE FOR GFR 0.55 MG/DL (0.55-1.30); GLOMERULAR FILTRATION RATE > 90.0 (>60); IRON (FE) 44 UG/DL (50-170); LDL CHOLESTEROL 65.1 MG/DL (<100); MAGNESIUM LEVEL 2.1 MG/DL (1.8-2.4); NON-HDL-C 72.7 MG/DL; PERCENT SATURATION 12.5 % (13.2-45.0); POTASSIUM SERUM 4.7 MMOL/L (3.5-5.1); SODIUM LEVEL 143 MMOL/L (136-145); TRIGLYCERIDES LEVEL 38 MG/DL (<150)
[2025-01-14 14:56] LABS: VITAMIN B12 LEVEL 811 PG/ML (211-911)
[2025-01-14 15:00] LABS: ESTIMATED AVERAGE GLUCOSE 94.0 MG/DL (60-110)
== END ==
LOC: M LAB REF 14:03
PROVIDERS: ATTEND Nurse Practitioner Family
DX: E66.3 Overweight (principal); Z98.84 Bariatric surgery status